=== PATIENT | male | born 1935 | race Caucasian/White ===

== ENCOUNTER → 2016-07-30 | Outpatient (CLI) | payer MEDICARE, OTHER ==
[~2016-07-30] MED LIST: AZOPT 1%; BIMATOPROST 0.03%; BRIM1OPD; CARD2TAB; LESCOL; SIMV40TA2 PO; [UNRECOGNIZED DRUG - OTHER]
--- NOTE | 2016-07-30 11:47 | REP ---
Chest two views HISTORY: Hypertension Comparison: 03/13/2016 The lungs are clear. The heart is normal in size. The pulmonary vasculature is normal in appearance. The bony structure is intact. IMPRESSION: No acute disease. Signed by Franck Armijo MD 07/30/2016 11:39 A
[2016-07-30 11:49] LABS: MEAN CORPUSCULAR HEMOGLOBIN 30.6 pg (27.0-33.0); MEAN CORPUSCULAR HGB CONC 32.7 g/dl (32.0-36.5); MEAN CORPUSCULAR VOLUME 93.7 fl (80.0-96.0); RED CELL DISTRIBUTION WIDTH 13.6 % (11.5-14.5)
[2016-07-30 12:01] LABS: INR 1.1
[2016-07-30 12:16] LABS: ALBUMIN 3.8 GM/DL (3.2-5.2); ALBUMIN/GLOBULIN RATIO 1.09 (1.00-1.93); ALKALINE PHOSPHATASE 70 U/L (45-117); ALT/SGPT 27 U/L (12-78); ANION GAP 8 MEQ/L (8-16); AST/SGOT 26 U/L (15-37); BILIRUBIN,TOTAL 0.7 MG/DL (0.2-1.0); BLOOD UREA NITROGEN 25 MG/DL (7-18); CALCIUM LEVEL 8.7 MG/DL (8.8-10.2); CARBON DIOXIDE LEVEL 28 MEQ/L (21-32); CHLORIDE LEVEL 108 MEQ/L (98-107); CHOLESTEROL LEVEL 155 MG/DL (<200); CREATININE FOR GFR 0.99 MG/DL (0.70-1.30); GLOMERULAR FILTRATION RATE > 60.0 (>35); GLUCOSE, FASTING 97 MG/DL (83-110); POTASSIUM SERUM 4.5 MEQ/L (3.5-5.1); SODIUM LEVEL 144 MEQ/L (136-145); TOTAL PROTEIN 7.3 GM/DL (6.4-8.2); TRIGLYCERIDES LEVEL 95 MG/DL (<150)
--- NOTE | 2016-07-30 12:43 | ECGEPIP ---
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
== END ==
LOC: M LAB 10:55
PROVIDERS: ATTEND Family Medicine
DX: Z01.818 Encounter for other preprocedural examination (principal); I10 Essential (primary) hypertension; N40.0 Benign prostatic hyperplasia without lower urinary tract symptoms; R00.1 Bradycardia, unspecified

== ENCOUNTER → 2016-08-14 | Day surgery (SDC) | payer MEDICARE, OTHER ==
[~2016-08-14] VITALS: Ht 167.6 cm; Wt 68.0 kg
[~2016-08-14] MED LIST changes: +ACETAMINOPHEN 325 MG TAB PO PRN; +ACETYLCHOLINE OPHTH SOLN 1% 2ML As Ordered ONE; +AcetaZOLAMIDE 500 MG ER CAP PO ONE; +BALANCED SALT IRRIGATION SOL 500ML GLASS BOTTLE (FOR OR EYE COMPOUND) IR ONE; +BALANCED SALT IRRIGATION SOLUTION 500ML BAG (FOR OR EYE MACHINE) As Ordered ONE; +CARV12.5 PO; +CEFUROXIME 1MG/0.1ML INTRACAMERAL INJ As Ordered ONE; +CYCLOPENTOLATE 2% OPHTH SOLN OD ONE; +D5W/0.2% SODIUM CHLORIDE 250 ML IV SCH; +HEALON DUET (HEALON 10MG/ML 0.55ML & HEALON ENDOCOAT 30MG/ML 0.85ML) As Ordered ONE; +HEALON DUET (HEALON 10MG/ML 0.55ML & HEALON ENDOCOAT 30MG/ML 0.85ML) XX ONE; +KETOROLAC 0.5% OPHTH SOLN OD ONE; +LIDOCAINE 1% SDV 5 ML VIAL As Ordered ONE; +LIDOCAINE 1% SDV 5 ML VIAL XX ONE; +LIDOCAINE 4% INJ 5 ML AMP OU ONE; +LOSA50TA20 PO; +MIDAZOLAM INJ 2 MG/2 ML VIAL (J2250) As Ordered ONE; +OFLOXACIN 0.3 % (OCUFLOX) OPTH SOL 5ML OD ONE; +PHENYLEPHRINE 2.5% OPHTH SOL 2ML OD ONE; +POVIDONE-IODINE 5% OPHTH PREP SOL 30ML As Ordered ONE; +PROPARACAINE 0.5% OPHTH SOL 15ML OD PRN; +TRIMETHOBENZAMIDE 300 MG CAP PO PRN; +TROPICAMIDE 1% OPHTH SOLN 2 ML OD ONE; +fentaNYL 100 MCG/2 ML INJECTION (J3010) As Ordered ONE
[2016-08-14 12:10] VITALS: BP 178/92
--- NOTE | 2016-08-15 05:11 | RO ---
DATE OF PROCEDURE: 08/14/2016 PREPROCEDURE DIAGNOSIS: Age related nuclear cataract, right eye. POSTPROCEDURE DIAGNOSIS: Age related nuclear cataract, right eye. PROCEDURE: Phacoemulsification and posterior chamber intraocular lens implantation. The lens used was PCB00, 20.0 diopter. SURGEON: Elaine Naranjo MD OIL EXPERT: ANESTHESIA: Topical with sedation. DESCRIPTION OF PROCEDURE: The patient was prepped and draped in the usual fashion. A lid speculum was placed between the lids. The eye was fixated. A stab incision was made to the anterior chamber, and 1% non-preserved lidocaine was instilled. Then, viscoelastic was instilled. The eye was re-fixated. A 2.75 mm sapphire keratome was used to make a clear corneal temporal limbal incision. Capsulorrhexis was begun with a 30-gauge bent needle and then carried out in a circular fashion with capsulorrhexis forceps. The lens was hydrodissected, and then the phacoemulsification unit was used to make a groove in the nucleus in two meridians. The nucleus was then cracked into four quadrants. Each quadrant was removed with the phacoemulsification unit. Any remaining cortex was removed with the irrigation and aspiration (I and A) unit. Capsular bag was refilled with viscoelastic. A posterior chamber intraocular lens was placed in the capsular bag without difficulty. Any remaining viscoelastic was removed with the I and A unit. The wound was hydrated, and Miochol and cefuroxime were instilled into the anterior chamber. The patient tolerated the procedure well and went to the recovery room in stable condition.
== END | disposition home or self-care (01) ==
LOC: M SDC 09:06
PROVIDERS: ATTEND Ophthalmology
DX: H25.11 Age-related nuclear cataract, right eye (principal); I25.2 Old myocardial infarction; Z88.0 Allergy status to penicillin; Z79.899 Other long term (current) drug therapy; I10 Essential (primary) hypertension; E78.5 Hyperlipidemia, unspecified; K44.9 Diaphragmatic hernia without obstruction or gangrene; Z87.891 Personal history of nicotine dependence
CPT/HCPCS: 66984; J2250; J3010; V2632

== ENCOUNTER 2016-08-26 18:31 | Emergency (ER) | payer MEDICARE, OTHER ==
[~2016-08-26] VITALS: Ht 165.1 cm; Wt 72.6 kg
[~2016-08-26 18:31] MED LIST changes: -ACETAMINOPHEN 325 MG TAB PO PRN; -ACETYLCHOLINE OPHTH SOLN 1% 2ML As Ordered ONE; -AcetaZOLAMIDE 500 MG ER CAP PO ONE; -BALANCED SALT IRRIGATION SOL 500ML GLASS BOTTLE (FOR OR EYE COMPOUND) IR ONE; -BALANCED SALT IRRIGATION SOLUTION 500ML BAG (FOR OR EYE MACHINE) As Ordered ONE; -CEFUROXIME 1MG/0.1ML INTRACAMERAL INJ As Ordered ONE; -CYCLOPENTOLATE 2% OPHTH SOLN OD ONE; -D5W/0.2% SODIUM CHLORIDE 250 ML IV SCH; -HEALON DUET (HEALON 10MG/ML 0.55ML & HEALON ENDOCOAT 30MG/ML 0.85ML) As Ordered ONE; -HEALON DUET (HEALON 10MG/ML 0.55ML & HEALON ENDOCOAT 30MG/ML 0.85ML) XX ONE; -KETOROLAC 0.5% OPHTH SOLN OD ONE; -LIDOCAINE 1% SDV 5 ML VIAL As Ordered ONE; -LIDOCAINE 1% SDV 5 ML VIAL XX ONE; -LIDOCAINE 4% INJ 5 ML AMP OU ONE; -MIDAZOLAM INJ 2 MG/2 ML VIAL (J2250) As Ordered ONE; -OFLOXACIN 0.3 % (OCUFLOX) OPTH SOL 5ML OD ONE; -PHENYLEPHRINE 2.5% OPHTH SOL 2ML OD ONE; -POVIDONE-IODINE 5% OPHTH PREP SOL 30ML As Ordered ONE; -PROPARACAINE 0.5% OPHTH SOL 15ML OD PRN; -TRIMETHOBENZAMIDE 300 MG CAP PO PRN; -TROPICAMIDE 1% OPHTH SOLN 2 ML OD ONE; -fentaNYL 100 MCG/2 ML INJECTION (J3010) As Ordered ONE
[2016-08-26] MEDS ORDERED: ketorolac OD (19:14)
[2016-08-26] MEDS ORDERED: LACTULOSE 20 GM/30 ML SYRUP UD PO ONE (19:45)
[2016-08-26] MEDS ORDERED: GLYCERIN ADULT SUPP PR ONE (19:45)
[2016-08-26] MEDS ORDERED: GASTROGRAFIN SOLUTION 30ML (Q9963) As Ordered ONE (20:56)
[2016-08-26 21:10] LABS: BASO % 0.3 % (0.0-1.0); EOS # 0.2 K/mm3 (0.0-0.50); EOS % 1.8 % (0.0-3.0); LARGE UNSTAINED CELL # 0.4 K/mm3 (0.0-0.4); LARGE UNSTAINED CELL % 3.5 % (0.0-4.0); LYMPH # 2.1 K/mm3 (1.5-4.5); LYMPH % 18.3 % (24.0-44.0); MEAN CORPUSCULAR HEMOGLOBIN 30.9 pg (27.0-33.0); MEAN CORPUSCULAR HGB CONC 33.3 g/dl (32.0-36.5); MEAN CORPUSCULAR VOLUME 92.6 fl (80.0-96.0); MONO # 0.7 K/mm3 (0.0-0.8); MONO % 6.1 % (0.0-5.0); NEUTROPHILS # 7.9 K/mm3 (1.8-7.7); PLATELET COUNT, AUTOMATED 148 k/mm3 (150-450); RED CELL DISTRIBUTION WIDTH 13.1 % (11.5-14.5); WHITE BLOOD COUNT 11.2 K/mm3 (4.0-10.0)
[2016-08-26] MEDS ORDERED: GASTROGRAFIN SOLUTION 30ML (Q9963) PO ONE ×2 (21:15→21:45)
[2016-08-26 21:17] LABS: ALBUMIN 2.8 GM/DL (3.2-5.2); ALBUMIN/GLOBULIN RATIO 0.85 (1.00-1.93); BILIRUBIN,DIRECT 0.2 MG/DL (0.0-0.2); BILIRUBIN,TOTAL 0.9 MG/DL (0.2-1.0); CREATININE FOR GFR 1.47 MG/DL (0.70-1.30); GLOMERULAR FILTRATION RATE 49.1 (>35); POTASSIUM SERUM 3.8 MEQ/L (3.5-5.1); TOTAL PROTEIN 6.1 GM/DL (6.4-8.2)
--- NOTE | 2016-08-26 23:20 | REPUSA ---
CT of the abdomen and pelvis without contrast Clinical statement: Pain. Possible obstruction. Technique: Multiple axial CT images were obtained from the base of the lungs to the floor of the pelv is utilizing 5 mm axial slices after administration of oral contrast. Coronal and sagittal reconstruc tions were also obtained. No comparison is available. Findings: Chest: The visualized lung bases are clear. There is a small hiatal hernia. Abdomen: The kidneys are normal in size bilaterally. Parapelvic cysts are seen in the right kidney. T here is moderate left-sided hydronephrosis and hydroureter, caused by a 3 mm stone at the left ureter ovesical junction. The left ureter is ectatic in course. The liver, spleen, pancreas, gallbladder and adrenal glands are unremarkable. The aorta demonstrates normal caliber and contour. There is no abdo terry lymphadenopathy or ascites. Pelvis: The bowel is unremarkable, with no obstructive or inflammatory changes. The urinary bladder i s significantly distended. Dense material is seen in the midportion of the urinary bladder. No bladde r wall thickening is appreciated. There is no pelvic lymphadenopathy or ascites. The other pelvic str uctures appear unremarkable. Bones: There are no suspicious osseous abnormalities seen. Moderately severe multilevel degenerative disc disease is seen throughout the lower thoracic and lumbar spine. Impression: 1. Moderate left-sided hydronephrosis and hydroureter caused by a 3 mm obstructing stone at the left ureterovesical junction. 2. Moderately severe distention the urinary bladder. Dense material in the dependent portion likely r epresents contrast. The urinary bladder distention suggests bladder outlet obstruction. Follow-up is suggested as clinically indicated. 3. Simple right renal parapelvic cysts. 4. Small hiatal hernia. 5. No obstructive or inflammatory bowel changes. 6. Moderate spondylosis of the lumbar and thoracic spine.
[2016-08-26] MEDS ORDERED: NS 500 ML IV ONE (23:45)
[2016-08-27] MEDS ORDERED: CIPR500T89 PO (00:42)
[2016-08-27] MEDS ORDERED: CIPROFLOXACIN 500 MG TAB PO ONE (00:45)
[2016-08-27 00:55] VITALS: BP 123/72
[2016-08-27] MEDS ORDERED: NORCO, ANEXSIA 5/325MG TABLET (HYDROcodone/ACETAMINOPHEN) PO ONE (01:45)
--- NOTE | 2016-08-27 06:33 | REP ---
Abdomen series: Three views presented. History: Pain. Findings: Supine AP view of the chest shows no evidence of infiltrate. Heart is not enlarged. Supine and cross-table lateral views of the abdomen demonstrate gaseous distension of the colon. No small bowel dilation is seen. There is no gas visible in the sigmoid or rectosigmoid or rectum segment of the left colon. Multiple air-fluid levels are seen on the lateral radiograph. No free air is appreciated. There are degenerative changes in the lumbar spine. Impression: Gaseous distension of the proximal colon extending into the mid descending colon level. Left colonic obstruction pattern. No evidence of free air. Consider CT scanning. Signed by Pedro Dumont MD 08/27/2016 10:04 A
--- NOTE | 2016-08-27 13:53 | ED PDOC ---
Provider Note dr oquendo and dr godwin faxed formal report of ct abd/p for fu tiang Maranda Mora MD Aug 27, 2016 13:53
== END 2016-08-27 02:19 | disposition home or self-care (01) ==
LOC: M ED 22:21
DX: R33.9 Retention of urine, unspecified (principal); N13.2 Hydronephrosis with renal and ureteral calculous obstruction; K44.9 Diaphragmatic hernia without obstruction or gangrene; N13.4 Hydroureter; N28.1 Cyst of kidney, acquired; K59.00 Constipation, unspecified; I10 Essential (primary) hypertension; I25.10 Atherosclerotic heart disease of native coronary artery without angina pectoris; E78.5 Hyperlipidemia, unspecified; Z95.5 Presence of coronary angioplasty implant and graft; Z88.0 Allergy status to penicillin; Z79.899 Other long term (current) drug therapy
CPT/HCPCS: 36415; 51703; 74022; 74176; 80048; 80076; 81001; 82150; 83605; 83690; 85025; 87088; 99284; Q9963

== ENCOUNTER → 2016-08-29 | Outpatient (CLI) | payer MEDICARE, OTHER ==
[~2016-08-29] MED LIST changes: +CIPR500T89 PO; +CITR1SOL PO; +COLA100C PO; +DOXA1TAB41 PO; +FLOM5CAP PO; +HYDR-3713 PO; +KETO0.5S15 OD; +MAGNSOL PO; +PERC5TAB6 PO; +PREDOPD OD; +SENN8.6T7 PO; +SIMV20TA2 PO; +TYLE325T5 PO; +ketorolac OD
[2016-08-29 18:24] LABS: CALCIUM LEVEL 8.7 MG/DL (8.8-10.2); CREATININE FOR GFR 1.91 MG/DL (0.70-1.30); GLOMERULAR FILTRATION RATE 36.3 (>35); POTASSIUM SERUM 4.4 MEQ/L (3.5-5.1)
[2016-08-29 18:31] LABS: MEAN CORPUSCULAR HGB CONC 34.4 g/dl (32.0-36.5); MEAN CORPUSCULAR VOLUME 92.8 fl (80.0-96.0); RED CELL DISTRIBUTION WIDTH 13.1 % (11.5-14.5); WHITE BLOOD COUNT 12.3 K/mm3 (4.0-10.0)
== END ==
LOC: M SMT 15:22
PROVIDERS: ATTEND Nurse Practitioner Family
DX: R33.9 Retention of urine, unspecified (principal)
CPT/HCPCS: 36415; 80048; 85027; G0463

== ENCOUNTER 2016-08-30 10:47 | Emergency (ER) | payer MEDICARE, OTHER ==
[~2016-08-30] VITALS: Ht 165.1 cm; Wt 70.3 kg
[~2016-08-30 10:47] MED LIST changes: -CITR1SOL PO; -COLA100C PO; -DOXA1TAB41 PO; -FLOM5CAP PO; -HYDR-3713 PO; -KETO0.5S15 OD; -MAGNSOL PO; -PERC5TAB6 PO; -PREDOPD OD; -SENN8.6T7 PO; -SIMV20TA2 PO; -TYLE325T5 PO
[2016-08-30] MEDS ORDERED: CIPR500T89 PO (11:03)
[2016-08-30] MEDS ORDERED: PREDOPD OD (11:03)
[2016-08-30] MEDS ORDERED: PERCOCET 5MG/325MG TAB PO ONE (11:30)
[2016-08-30 12:00] LABS: BASO % 0.1 % (0.0-1.0); EOS # 0.3 K/mm3 (0.0-0.50); EOS % 2.6 % (0.0-3.0); LARGE UNSTAINED CELL # 0.3 K/mm3 (0.0-0.4); LARGE UNSTAINED CELL % 2.9 % (0.0-4.0); LYMPH # 1.6 K/mm3 (1.5-4.5); LYMPH % 11.9 % (24.0-44.0); MEAN CORPUSCULAR HEMOGLOBIN 31.2 pg (27.0-33.0); MEAN CORPUSCULAR HGB CONC 33.8 g/dl (32.0-36.5); MEAN CORPUSCULAR VOLUME 92.4 fl (80.0-96.0); MONO # 1.1 K/mm3 (0.0-0.8); MONO % 9.6 % (0.0-5.0); NEUTROPHILS % 72.9 % (36.0-66.0); PLATELET COUNT, AUTOMATED 141 k/mm3 (150-450); WHITE BLOOD COUNT 10.9 K/mm3 (4.0-10.0)
[2016-08-30 12:02] LABS: CALCIUM LEVEL 8.1 MG/DL (8.8-10.2); CREATININE FOR GFR 1.75 MG/DL (0.70-1.30); GLOMERULAR FILTRATION RATE 40.1 (>35); POTASSIUM SERUM 4.3 MEQ/L (3.5-5.1)
[2016-08-30 12:29] LABS: MICROSCOPIC INDICATED? MAN YES (NO)
[2016-08-30 12:32] LABS: WBC, URINE 20-30 /hpf (0-3)
[2016-08-30 12:33] LABS: RBC, URINE 15-20 /hpf (0-3); SQUAMOUS EPITHELIAL CELL URINE SMALL AMOUNT /hpf (SMALL AMT)
[2016-08-30 12:34] LABS: BACTERIA, URINE SMALL AMOUNT; HYALINE CAST, URINE NONE SEEN /lpf (0-1); MICROSCOPIC EXAM PERFORMED
--- NOTE | 2016-08-30 12:44 | REP ---
CT ABDOMEN AND PELVIS WITHOUT IV CONTRAST: CT abdomen and pelvis performed without IV contrast with sagittal and coronal reconstruction images. Comparison 08/26/2016 exam. There is again moderate left hydroureteronephrosis caused by a 3 mm calculus at the left ureterovesical junction. This has not significantly changed. There has been placement of a Saleh catheter in the urinary bladder, which is now relatively collapsed. There is no right hydronephrosis with a cyst in the mid right kidney. The visualized lung bases demonstrate scattered fibrotic change. There is a small hiatal hernia. The liver is grossly unremarkable. The spleen demonstrates calcified granulomas. Adrenals and pancreas are grossly unremarkable. There is no abdominal aortic aneurysm. There is no adenopathy. There is no free air or free fluid. There is no bowel wall thickening. Bilateral inguinal hernias are seen right greater than left, containing fat. IMPRESSION: No change in the 3 mm calculus at the left ureterovesical junction causing moderate left hydroureteronephrosis. There has been placement of a Saleh catheter in the urinary bladder, which is now collapsed. No other new finding. Signed by Zach Cole MD 08/30/2016 05:00 P
[2016-08-30] MEDS ORDERED: PERC5TAB6 PO (13:48)
[2016-08-30] MEDS ORDERED: COLA100C PO (13:50)
[2016-08-30 13:52] VITALS: BP 135/76
[2016-08-30] MEDS ORDERED: MAGNESIUM CITRATE 300 ML BTL PO ONE (14:00)
[2016-08-30] MEDS ORDERED: TAMSULOSIN 0.4 MG CAP PO ONE (14:00)
== END 2016-08-30 14:11 | disposition home or self-care (01) ==
LOC: M ED 11:51
DX: N13.0 Hydronephrosis with ureteropelvic junction obstruction (principal); R10.9 Unspecified abdominal pain; K59.00 Constipation, unspecified; Z96.0 Presence of urogenital implants; Z79.899 Other long term (current) drug therapy; Z88.0 Allergy status to penicillin

== ENCOUNTER 2016-09-02 15:04 | Inpatient (IN) | payer MEDICARE, OTHER ==
[~2016-09-02] VITALS: Ht 157.5 cm; Wt 78.8 kg
[2016-09-02] MEDS: CARVedilol 12.5 MG TAB PO SCH ×2 (01:15→21:00)
[~2016-09-02 15:04] MED LIST changes: +COLA100C PO; +PERC5TAB6 PO; +PREDOPD OD
[2016-09-02] MEDS ORDERED: FLOM5CAP PO (15:36)
[2016-09-02] MEDS ORDERED: MAGNSOL PO (15:36)
[2016-09-02] MEDS ORDERED: MORPHINE 2 MG/ML 1ML SYRINGE IV ONE (16:30)
[2016-09-02] MEDS ORDERED: KETOROLAC 30 MG/ML VIAL (J1885) IV ONE (16:30)
[2016-09-02 17:19] LABS: BASO % 0.2 % (0.0-1.0); EOS # 0.1 K/mm3 (0.0-0.50); EOS % 0.7 % (0.0-3.0); LARGE UNSTAINED CELL # 0.4 K/mm3 (0.0-0.4); LARGE UNSTAINED CELL % 3.3 % (0.0-4.0); LYMPH % 7.1 % (24.0-44.0); MEAN CORPUSCULAR HEMOGLOBIN 30.7 pg (27.0-33.0); MEAN CORPUSCULAR HGB CONC 34.1 g/dl (32.0-36.5); MONO % 7.7 % (0.0-5.0); NEUTROPHILS # 10.9 K/mm3 (1.8-7.7); PLATELET COUNT, AUTOMATED 148 k/mm3 (150-450); RED CELL DISTRIBUTION WIDTH 12.8 % (11.5-14.5); WHITE BLOOD COUNT 13.4 K/mm3 (4.0-10.0)
[2016-09-02 17:22] LABS: CALCIUM LEVEL 7.7 MG/DL (8.8-10.2); CREATININE FOR GFR 1.33 MG/DL (0.70-1.30); GLOMERULAR FILTRATION RATE 55.1 (>35); POTASSIUM SERUM 4.1 MEQ/L (3.5-5.1)
--- NOTE | 2016-09-02 18:03 | REP ---
CT study of the abdomen and pelvis without IV or oral contrast: History: Left lateral abdominal pain. Recent left ureteral stone. Comparison study August 30, 2016. CT findings: Digital oven laborer radiograph demonstrates a gas dilated colon extending from cecum to rectum consistent with ileus. Multiple colonic air fluid levels are seen on the prone cross-table lateral oven laborer view. Axial CT images show some small bowel air-fluid levels as well as diffuse colonic distension. No free air is seen. No obstructive lesion is appreciated. There is a small quantity of right pleural fluid. Lung bases are otherwise clear. The liver and spleen are normal in size and homogeneous in texture. There are splenic granulomata seen. A small sliding-type hiatal hernia is seen. No adrenal lesion is observed. The pancreas shows no abnormality. There is moderate left-sided hydronephrosis and hydroureter seen extending to the distal ureter. No pelvic mass or obstructive lesion is seen. No definite stone is observed. There is a Saleh catheter in the urinary bladder. The bladder is empty as a result. The hydronephrosis and hydroureter are unchanged from the August 30, 2016 study. There is a 3 mm calculus in the region of the UPJ on the left, which is presumed to be the of the left ureteral obstructive lesion. This is unchanged from comparison study. No intrarenal calculi are seen. There is a cyst in the upper pole of the right kidney, peripelvic in distribution. There is lipomatous enlargement of the right spermatic cord. Question, fat containing right inguinal hernia. Impression: 1. Moderate left-sided hydronephrosis persists. 3 mm presumed distal ureteral calculus at the UVJ again seen. 2. Marked ileus pattern in the bowel gas with diffuse colonic distension and air-fluid levels, increased from the August 30, 2016 prior study. Signed by Pedro Dumont MD 09/02/2016 07:21 P
[2016-09-02] MEDS ORDERED: HYDR-3713 PO (18:58)
[2016-09-02] MEDS ORDERED: KETO0.5S15 OD (18:58)
[2016-09-02] MEDS ORDERED: CITR1SOL PO (18:58)
[2016-09-02] MEDS ORDERED: DOXA1TAB41 PO (18:58)
[2016-09-02] MEDS ORDERED: SIMV20TA2 PO (18:58)
[2016-09-02] MEDS ORDERED: COLA100C PO (18:58)
[2016-09-02] MEDS ORDERED: ONDANSETRON 4MG/2ML VIAL (J2405) As Ordered ONE (19:09)
[2016-09-02] MEDS ORDERED: PROPOFOL 200 MG/20 ML VIAL As Ordered ONE (19:09)
[2016-09-02] MEDS ORDERED: LIDOCAINE 2% INJ 100 MG/5 ML SDV (FOR ANES.) As Ordered ONE (19:09)
[2016-09-02] MEDS ORDERED: MIDAZOLAM INJ 2 MG/2 ML VIAL (J2250) As Ordered ONE (19:11)
[2016-09-02] MEDS ORDERED: fentaNYL 100 MCG/2 ML INJECTION (J3010) As Ordered ONE (19:12)
[2016-09-02] MEDS ORDERED: CONRAY-60 60% 50ML VIAL (Q9961) As Ordered ONE (19:21)
[2016-09-02] MEDS ORDERED: ceFAZolin 1GM INJ (J0690) As Ordered ONE (19:22)
[2016-09-02] MEDS ORDERED: CIPROFLOXACIN/D5W 400 MG/200 ML BAG (J0744) As Ordered ONE (19:32)
[2016-09-02] MEDS ORDERED: ETOMIDATE INJ 20MG/10ML VIAL As Ordered ONE (19:47)
[2016-09-02] MEDS ORDERED: ePHEDrine INJ 50 MG/ML VIAL As Ordered ONE (20:05)
[2016-09-02] MEDS ORDERED: METHYLENE BLUE 0.5% (5MG/ML) 10 ML AMP (PROVAYBLUE)(Q9968 PER 1MG) As Ordered ONE ×2 (20:12→20:38)
[2016-09-02] MEDS ORDERED: FUROSEMIDE 100 MG/10 ML VIAL (J1940) As Ordered ONE (20:24)
[2016-09-02] MEDS ORDERED: PHENYLephrine HCL 500 MCG/5 ML (100MCG/ML) SYRINGE (J2370) As Ordered ONE ×2 (20:29→20:32)
[2016-09-02] MEDS ORDERED: CIPROFLOXACIN/D5W 400 MG/200 ML BAG (J0744) IV ONE (20:38)
[2016-09-02] MEDS ORDERED: MAGNESIUM CITRATE 300 ML BTL PO PRN (20:45)
[2016-09-02] MEDS ORDERED: NORCO, ANEXSIA 5/325MG TABLET (HYDROcodone/ACETAMINOPHEN) PO PRN (20:45)
[2016-09-02] MEDS ORDERED: METHYLENE BLUE 0.5% (5MG/ML) 10 ML AMP (PROVAYBLUE)(Q9968 PER 1MG) IV ONE (21:05)
[2016-09-02] MEDS ORDERED: FLEET OIL RETENTION ENEMA PR PRN (21:45)
[2016-09-02] MEDS ORDERED: MIRALAX *UNIT DOSE* 17GM PACKET PO PRN (21:45)
[2016-09-02] MEDS ORDERED: ONDANSETRON 4MG/2ML VIAL (J2405) IV PRN ×2 (21:45→22:00)
[2016-09-02] MEDS ORDERED: fentaNYL 100 MCG/2 ML INJECTION (J3010) IV PRN (22:00)
[2016-09-02] MEDS ORDERED: LR 1,000 ML IV SCH (22:00)
[2016-09-02 22:20] VITALS: BP 155/91
[2016-09-02 23:00] VITALS: BP 149/70
[2016-09-03] VITALS (8 sets, daily range): BP systolic 112–163; BP diastolic 62–84
[2016-09-03] MEDS: cefTRIAXone SOD 1 GM in D5W MINI-BAG PLUS 50 ML IV SCH (01:08)
[2016-09-03] MEDS: NS 1,000 ML IV SCH ×2 (01:08→15:36)
[2016-09-03] MEDS: DOCUSATE SODIUM 100 MG CAP PO SCH ×2 (01:10→22:11)
[2016-09-03] MEDS: prednisoLONE ACET 1% OPHTH SUSP 5ML OD SCH ×4 (01:10→22:12)
[2016-09-03] MEDS: KETOROLAC 0.5% OPHTH SOLN OD SCH ×5 (01:10→22:11)
[2016-09-03] MEDS: SIMVASTATIN 20 MG TAB PO SCH ×3 (01:10→22:11)
[2016-09-03] MEDS: TAMSULOSIN 0.4 MG CAP PO SCH ×2 (01:10→22:11)
--- NOTE | 2016-09-03 05:33 | HPE ---
DATE OF ADMISSION: 09/02/2016 PRIMARY CARE PHYSICIAN: Dr. Paulino TOOL AND GAUGE INSPECTOR: Dr. Jackson CHIEF COMPLAINT: Flank pain. HISTORY OF PRESENT ILLNESS: The patient is an 81-year-old man who was examined in the postanesthesia care unit (PACU). He is post anesthesia and fatigued and sleeping. He is arousable but does not wish to answer questions and falls asleep quickly. As such, much of the history is obtained from verbal report from the emergency department (ED) provider, urologist Rosalba Graham, and review of the chart. Patient is an 81-year-old man who for the last week has had abdominal pain and flank pain as well as low back pain. He actually presented to the emergency room on 08/26/2016 and, at that time, was found to have urinary retention. He did have a Saleh catheter inserted. He had, at that time, a 3 mm obstructing stone at the ureterovesical junction as well as moderately severe distension of the urinary bladder. He had a Saleh catheter placed at the time and was actually discharged home. He returned with persistent symptoms of pain and on 08/30/2016 and subsequently had repeat CT scan that once again demonstrated obstructing stone. At that time, a urine culture was completed, which was negative. The urine culture from 08/27/2016 grew Staphylococcus hominis. Patient's renal function actually had worsened between 08/26/2016 and 08/30/2016, going from a creatine of 1.4 to a creatine of 1.7. The patient was discharged once again on 08/30/2016. He returned today with persistent symptoms and episode of nausea and vomiting. The patient reportedly over the last 2 weeks has had difficulties with bowel movement and, since being here on 08/30/2016, he has not had a bowel movement since then. He has been on [place]. The patient was seen and evaluated in the emergency room by urology and was taken to the operating room (OR) for cystoscopy and ureteral stent placement. The patient was examined in the recovery room and appears to be doing well. PAST MEDICAL HISTORY: 1. Hypertension. 2. Dyslipidemia. 3. Coronary artery disease. 4. BPH. 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 He is a former smoker. He does not consume any alcohol. SURGICAL HISTORY: He had cataract extraction at the end of July. Status post transurethral resection of prostate (TURP), left shoulder surgery, and hernia repair. ALLERGIES: To PENICILLIN, reportedly anaphylaxis. FAMILY HISTORY: Noncontributory. REVIEW OF SYSTEMS: Negative other than history of present illness (HPI). PHYSICAL EXAM: Temperature 99.7, pulse 68, respiratory rate 20, blood pressure 132/68, oxygen saturation 96% on room air. GENERAL: He is a frail elderly man, laying flat, sleeping peacefully. He does not appear to be in any distress. HEENT: Pupils equally round, reactive to light. He has very dry mucous membranes. He is not cooperative with exam and as such, it is somewhat limited. CARDIOVASCULAR EXAM: S1, S2, regular. RESPIRATORY EXAM: Is clear anteriorly. ABDOMINAL EXAM: Distended. Bowel sounds are diminished. He does not recoil with palpation. He has a Saleh catheter in place draining hematuria. EXTREMITIES: No clubbing, cyanosis, or edema. LABORATORY STUDIES: WBC 13.4, up from 10.9 on 08/30/2016. Hemoglobin 14, hematocrit 41, platelet count is 148. Chemistry panel: Sodium 137, potassium 4.1, chloride 103, bicarbonate 26, BUN 23. Creatine 1.3, down from 1.7 on his last visit on 08/30/2016. Urinalysis (UA)/urine culture have not been completed. IMAGING: CT of the abdomen and pelvis today once again demonstrates, for the third time, moderate left-sided hydronephrosis and a 3 mm presumed distal ureteral calculus. This time, there was also noted to be a marked ileus pattern in the bowel gas with diffuse colonic extension. ASSESSMENT AND PLAN: This is an 81-year-old man with obstructing left ureteral stone. PROBLEMS: 1. Left obstructing stone. Dr. Graham's (of urology) help is greatly appreciated. The patient has been taken the OR already and had stent placement. He received cephalosporin and fluoroquinolone in the emergency room empirically. We will continue these. We will also check a UA/urine culture with a low threshold to discontinue antibiotics, as his cultures have previously been negative and he does not appear to be febrile and his leukocytosis is actually improving and he has been on ciprofloxacin outpatient. We will continue with [place] for pain medication. 2. Ileus. This has developed in the last 2 days, likely related to either the stone versus opiate pain medication. We will provide him with an aggressive bowel regimen. His stone has been addressed. He will need to followup with outpatient urology. If he should fail to improve or have worsening vomiting, could consider general surgery consultation, nasogastric (NG) tube placement. However, for now, we will keep him nothing by mouth and try these measures. 3. BPH. Continue with doxazosin and Flomax. 4. Hypertension. We will hold his losartan. Continue with his Coreg with holding parameters. 5. Recent cataract surgery. Continue with ketorolac and prednisone drops. 6. Dyslipidemia. Continue with simvastatin. 7. Documented history of coronary artery disease. He is on a statin and a beta-shaila. Curiously, he is not on aspirin. We will defer to his outpatient provider. DISPOSITION: The patient will be admitted to Dr. García's service, who will continue following the patient at 7 a.m.
[2016-09-03 07:26] LABS: MEAN CORPUSCULAR HEMOGLOBIN 30.3 pg (27.0-33.0); MEAN CORPUSCULAR VOLUME 91.9 fl (80.0-96.0); RED CELL DISTRIBUTION WIDTH 12.8 % (11.5-14.5); WHITE BLOOD COUNT 10.9 K/mm3 (4.0-10.0)
[2016-09-03 07:27] LABS: ANION GAP 8 MEQ/L (8-16); BLOOD UREA NITROGEN 22 MG/DL (7-18); CALCIUM LEVEL 7.6 MG/DL (8.8-10.2); CARBON DIOXIDE LEVEL 28 MEQ/L (21-32); CHLORIDE LEVEL 103 MEQ/L (98-107); CREATININE FOR GFR 1.13 MG/DL (0.70-1.30); GLOMERULAR FILTRATION RATE > 60.0 (>35); GLUCOSE, FASTING 98 MG/DL (83-110); POTASSIUM SERUM 3.6 MEQ/L (3.5-5.1); SODIUM LEVEL 139 MEQ/L (136-145)
[2016-09-03] MEDS: HEPARIN SOD (PORCINE) 5000 UNITS/ML VIAL SC SCH ×2 (08:16→22:10)
[2016-09-03] MEDS: CIPROFLOXACIN 400 MG in APPROPRIATE DILUENT 1 EA IV SCH ×2 (08:16→22:10)
[2016-09-03] MEDS: DOXAZOSIN MESYLATE 1 MG TAB PO SCH (08:16)
[2016-09-03] MEDS: CARVedilol 12.5 MG TAB PO SCH ×2 (08:17→22:13)
--- NOTE | 2016-09-03 08:34 | REP ---
Retrograde pyelogram: Two views. History: Left ureteral stone. 18 seconds of fluoroscopy time is reported. Findings: A sequence of two fluoroscopically obtained last image hold spot radiographs of the left abdomen document cystoscopic placement of double pigtail ureteral stent. Ileus pattern in the bowel gas is again seen. Signed by Pedro Dumont MD 09/03/2016 01:07 P
--- NOTE | 2016-09-03 11:15 | CR ---
DATE OF CONSULTATION: 09/02/2016 REASON FOR CONSULTATION: Distal left ureteral calculus. HISTORY OF PRESENT ILLNESS: The patient is an 81-year-old gentleman with his third emergency room visit for left lower quadrant and abdominal pain. Originally he was evaluated on 08/26/[address] scan showed moderate left hydroureteronephrosis with a 3 mm stone at the left ureterovesical junction, constipation, and bladder distension with 999 mL. A Saleh catheter was placed and he was sent to our office where he saw our nurse practitioner on 08/29/2016. They were going to continue with watchful waiting but the patient went back to the hospital on 08/30/[address] Morgan was called. The patient was discharged home with pain management and Flomax. He comes back in today with very severe left lower quadrant pain and still with constipation and bowel distension. He denies any significant fever or chills. He has had nausea but no vomiting. He denies any gross hematuria and a Saleh catheter bag is draining well. PAST MEDICAL HISTORY: History of myocardial infarction ([place]). Hypercholesterolemia. High blood pressure. PAST SURGICAL HISTORY: TURP in 2007. Shoulder surgery. Angiogram with cardiac catheterization and stent. Cataract. Hernia repair. MEDICATIONS: - simvastatin - carvedilol - losartan He was on ciprofloxacin at home and prednisone ophthalmic drops. ALLERGIES: PENICILLIN. FAMILY HISTORY: Noncontributory. There is no family history of kidney stones. SOCIAL HISTORY: He is a former smoker and does not drink alcohol now. PHYSICAL EXAMINATION: He is afebrile. His blood pressure is 132/68. His pulse is 68. Respiratory rate is 20. His head is normocephalic, atraumatic. His eyes are pupils equal, round, reactive to light and accommodation and extraocular muscles intact. His neck is supple and he has no significant supraclavicular or cervical adenopathy. He is breathing without the use of accessory muscles and his lungs are clear. His heart has a regular rate and rhythm now. He has no true CVA tenderness but he does have abdominal distension and left lower quadrant tenderness. There is no rebound or guarding. There is a Saleh catheter in place draining clear yellow urine. His extremities show no cyanosis, clubbing or edema. LABORATORY DATA: His white blood count is slightly elevated at 13.4 with his hemoglobin and hematocrit 14/40. His BUN and creatinine are actually down from 08/29 were his creatinine was 1.91. Today it is 1.33. His BUN is 23. A urine culture did grow out staph hominis commonness on 08/27/2016. CT scan of the abdomen and pelvis dated 09/02/2016: There is still moderate left sided hydroureteronephrosis to the distal ureter and this is unchanged from the previous study. There is no intrarenal calculi seen. There is a cyst in the upper pole of the right kidney. There can be of fat containing right inguinal hernia. There is also marked ileus pattern with diffuse colonic distension and air fluid levels increased from the prior study of 08/30. DISCUSSION: I have discussed these findings at length with the patient and his daughter in the emergency room today. At this point, he would like to go ahead with surgical management of the stones since he is still so uncomfortable. We discussed though that he still has the severe ileus and constipation but that hopefully this will get better once the stone is removed. We discussed exactly how the procedure is done and what to expect both pre- and post procedurally. We discussed the major risks which included but were not limited to the risks of general anesthesia, reactions to medication, bleeding, infection, inability to get the stone and continued pain from his other abdominal issues and also his urinary obstruction. IMPRESSION: 1. Distal 3 mm ureterovesical junction stone on the left which has not moved since 08/26/2016 still in a patient with his third ER visit and severe pain. 2. Severe ileus and constipation for the last 2 weeks. 3. Urinary retention also since 08/26/2016 now with Saleh catheter draining. PLAN: 1. Bring the patient emergently to the operating room for left ureteroscopy, stone manipulation, and stent placement. 2 Admit the patient overnight to the hospitalist service to deal with his ileus and constipation issues. 3. The patient will still need to follow up in the future for his urinary retention and a voiding trial.
--- NOTE | 2016-09-03 11:49 | RO ---
DATE OF PROCEDURE: 09/02/2016 PREOPERATIVE DIAGNOSIS: Distal left ureteral calculus. POSTOPERATIVE DIAGNOSIS: Distal left ureteral calculus with a very abnormal trigone and regrowth of his prostate, prostatic urethra on the left hand side. PROCEDURE: Cystoscopy, left ureteroscopy, left laser lithotripsy and stone basketing, and left ureteral stent placement. SURGEON: Dr. Rosalba Graham FELT CUTTING MACHINE OPERATOR: ANESTHESIA: General. MEDICATIONS: Cipro 400 mg IV preoperatively. DRAINS: 22-Chilean Saleh catheter, 6-Chilean double-J ureteral [place] stent and an 18-Chilean Saleh catheter. FINDINGS: Extremely abnormal trigone with significant postoperative scarring from a TURP multiple years ago and now with regrowth of the prostatic urethra on the right hand side. INDICATIONS FOR PROCEDURE: The patient is an 81-year-old gentleman with severe left lower quadrant pain and this is his third emergency room (ER) visit. Originally, he presented on 08/23/2016 to the emergency room with left lower quadrant pain, constipation and was found to be in urinary retention with 999 mL from his bladder. Saleh catheter was placed. A CT scan also showed a 3 mm distal left ureteral calculus and hydroureter nephrosis. He also had constipation and has continued to have constipation and abdominal pain with distension since that time. The patient came back to the emergency room and this is his third occasion and it was decided to bring him to the operating room urgently for pain management. All different options, alternatives, risks and benefits were discussed and informed consent was obtained. DESCRIPTION OF PROCEDURE: The patient was brought into the operating room. Sequential compression devices were in place and preoperative antibiotics had been given. Next, he was prepped and draped in the usual fashion. A 21-Chilean rigid ureterocystoscope was inserted. The urethra was noted to be open without any evidence of lesions or strictures. Upon entering the prostatic urethra, there was significant regrowth of tissue on the left hand side. There was a slightly high bladder neck and then, when I entered the bladder, there was multiple abnormalities with a completely abnormal trigone and significant difficulty seeing the ureteral orifices. There was also very deep trabeculation and/or previous false passage now with scar tissue with several long bands throughout the bladder, one in the midline. I gave methylene blue and Lasix to try to find the ureteral orifice and finally was able to see the left ureteral orifice very lateral on the bladder wall and underneath one of these abnormal bridges of tissue. It looks as though his whole trigone had been undermined at some point. At this point, I was able to place a 0.035 guidewire under fluoroscopy and this was left as a safety wire. We then placed a second wire and when in with a ureteroscope. The stone was seen in the distal ureter and because of the shape, I decided to place a laser in and I broke the stone into two pieces. I then went back with a stone basket and was able to remove the stone fragments. At this point, a [place] 6-Chilean double-J ureteral stent was placed and fluoroscopy showed excellent placement at the left renal pelvis and down in the bladder. The patient's bladder was emptied. An 18-Chilean Saleh catheter was replaced and left to gravity drainage. The patient was returned to the recovery room in stable condition. The patient will be admitted to the hospitalist service overnight because of his ileus and severe constipation problems and abdominal pain. He will need to followup in the office in approximately 1 week for cystoscopy and stent removal, and then further discussion for possible voiding trial once he starts moving his bowels normally. LISA
--- NOTE | 2016-09-03 12:39 | IPN ---
DATE: 09/03/2016 The patient feels much more comfortable after his stone has been removed and it seems as though he had a bowel movement this morning and his abdominal distension is improving. He is afebrile. His blood pressure is 129/77 and his pulse is 60. He has no CVA tenderness. His abdomen is still slightly distended but soft and nontender. There is no significant rebound or guarding. He does have a Saleh catheter in place and it is draining light pink urine to almost clear. His extremities show no significant clubbing, cyanosis or edema. LABORATORY DATA: His white blood count is down to 10.9 from 30.4 yesterday. His hemoglobin and hematocrit is 12/26.3. His BUN is 22 and his creatinine is now down to 1.13 from 1.33 yesterday. IMPRESSION: 1. Postoperative #1 status post left ureteroscopy and distal stone removal with placement of a double-J ureteral stent now doing better. 2. History of an ileus with constipation recently, most likely secondary to pain medication and pain from the stone, but it does sound like he has had chronic constipation so medicine is following him, which is greatly appreciated. 3. Renal insufficiency now with his creatinine down to 1.13. 4. Urinary retention with a history of a TURP many years ago with abnormalities seen on cystoscopy of the trigone of the bladder from previous procedure. PLAN: 1. Patient will come to the outpatient urology clinic for a voiding trial once he is moving his bowels well and is ambulating. 2. Patient also to have a cystoscopy and stent removal in the outpatient urology clinic in approximately 1 week and continuation of care for the urinary retention. LISA
--- NOTE | 2016-09-03 12:51 | IPN ---
DATE: 09/03/2016 SUBJECTIVE: Patient is seen and examined in the room with his daughter. The patient finally started having bowel movements. However, the patient has been nothing by mouth in preparation for the procedures. The patient has been maintained on IV fluids. Still has some abdominal discomfort. The patient tolerated the ureteral stent placement well. No complications noted. VITAL SIGNS: Temperature is 98.2, pulse is 60, respirations 16, blood pressure is 129/77, pulse oximetry is 98% with 2 liters nasal cannula. GENERAL: Fatigued. No signs of acute distress. Alert and oriented times three. HEENT: Problem with hearing. Extremely dry oral mucosa. Normocephalic. CARDIOVASCULAR: Positive S1 and S2. Regular rate. LUNGS: Clear to auscultation bilaterally. ABDOMEN: Distended. Bowel sounds present. No rebound. No guarding. EXTREMITIES: No edema. No cyanosis. LABORATORY DATA: WBC 10.9, hemoglobin 12, hematocrit 36.3, platelet count is 155. Sodium is 139, potassium 3.6, chloride is 103, carbon dioxide 28, BUN 22, creatinine is 1.13, GFR is greater than 60, fasting glucose 98, calcium is 7.9. ASSESSMENT/PLAN: 1. Distal obstructing left ureteral calculus. Patient was brought to the OR by urologist Dr. Graham yesterday. A stent was placed and stone was removed. The patient tolerated it well. Patient is cleared by the urologist. 2. Ileus. Possibly due to stone and also chronic opiate use. The patient had a bowel movement after the procedure yesterday. NG tube was removed. The patient's diet order will change from nothing by mouth to 2 gram sodium diet. Currently the patient is extremely dry and we are not sure the patient can tolerate significant oral intake. I will continue the patient on the IV fluids. 3. Benign prostatic hypertrophy (BPH). Continue Zosyn and Flomax. The patient has a Saleh catheter. 4. Urinary tract infection. The patient is on Rocephin and ciprofloxacin. We will wait for the urine cultures. 5. Hypertension. The patient is on Coreg with holding parameters. Losartan is on hold. 6. Dyslipidemia. Continue simvastatin. 7. Recent cataract surgery on ketorolac and prednisone drops. 8. History of coronary artery disease on statin and beta-shaila. The patient is not on aspirin, referred that to the patient's outpatient provider. 9. Deep vein thrombosis (DVT) prophylaxis, on heparin.
[2016-09-04] MEDS: NS 1,000 ML IV SCH (01:52)
[2016-09-04] MEDS: cefTRIAXone SOD 1 GM in D5W MINI-BAG PLUS 50 ML IV SCH (01:52)
[2016-09-04 06:00] VITALS: BP 121/72
[2016-09-04 08:27] LABS: MEAN CORPUSCULAR HEMOGLOBIN 30.7 pg (27.0-33.0); MEAN CORPUSCULAR HGB CONC 33.7 g/dl (32.0-36.5); MEAN CORPUSCULAR VOLUME 91.2 fl (80.0-96.0); RED CELL DISTRIBUTION WIDTH 12.8 % (11.5-14.5)
[2016-09-04 08:29] LABS: ANION GAP 6 MEQ/L (8-16); BLOOD UREA NITROGEN 15 MG/DL (7-18); CALCIUM LEVEL 7.3 MG/DL (8.8-10.2); CARBON DIOXIDE LEVEL 28 MEQ/L (21-32); CHLORIDE LEVEL 106 MEQ/L (98-107); CREATININE FOR GFR 0.87 MG/DL (0.70-1.30); GLOMERULAR FILTRATION RATE > 60.0 (>35); GLUCOSE, FASTING 92 MG/DL (83-110); POTASSIUM SERUM 3.9 MEQ/L (3.5-5.1); SODIUM LEVEL 140 MEQ/L (136-145)
[2016-09-04] MEDS: CIPROFLOXACIN 400 MG in APPROPRIATE DILUENT 1 EA IV SCH (08:37)
[2016-09-04] MEDS: DOXAZOSIN MESYLATE 1 MG TAB PO SCH (08:42)
[2016-09-04 08:43] VITALS: BP 112/60
[2016-09-04] MEDS: CARVedilol 12.5 MG TAB PO SCH (08:43)
[2016-09-04] MEDS: SIMVASTATIN 20 MG TAB PO SCH (08:44)
[2016-09-04] MEDS: HEPARIN SOD (PORCINE) 5000 UNITS/ML VIAL SC SCH (08:48)
[2016-09-04] MEDS: prednisoLONE ACET 1% OPHTH SUSP 5ML OD SCH (08:49)
[2016-09-04] MEDS: KETOROLAC 0.5% OPHTH SOLN OD SCH ×2 (08:49→12:30)
[2016-09-04] MEDS ORDERED: TYLE325T5 PO (10:10)
[2016-09-04] MEDS ORDERED: SENN8.6T7 PO (10:10)
[2016-09-04] MEDS ORDERED: CIPR500T89 PO (10:10)
[2016-09-04 12:30] VITALS: BP 120/70
--- NOTE | 2016-09-04 16:30 | DSES ---
DATE OF ADMISSION: 09/02/2016 DATE OF DISCHARGE: 09/04/2016 PRIMARY CARE PROVIDER: Dr. Paulino CONSULTANTS: Urologist, Dr. Rosalba Graham PROCEDURES: 1. Cystoscopy and left uretal scope and left laser lithotripsy and stone basketing. 2. Left ureteral stent placement. ADMISSION/DISCHARGE DIAGNOSES: 1. Distal obstructing left ureteral calculus status post lithotripsy and stent placement. 2. Ileus. 3. Benign prostatic hypertrophy. 4. Urinary tract infection. 5. Hypertension. 6. Dyslipidemia. 7. History of coronary artery disease. HOSPITALIZATION COURSE: Patient is an 81-year-old male who presented to [facility] on 09/02/2016 with flank pain. Patient was found to have obstructing calculus at the left urethra. Patient also noted to have marked ileus. The urologist Dr. Graham consulted immediately and patient was taken to the OR. Lithotripsy was performed and the stone was removed, and also ureteral stent placed. Patient started on some bowel movement medication. Shortly after the medication, patient had good stool production. Patient's diet had been advanced as tolerated. On 09/04/2016 patient determined medically stable for discharge with recommendation to follow with urology in one week. OBJECTIVE: VITAL SIGNS: Temperature 100.2, pulse 80, respirations 18, blood pressure 112/60, pulse ox 95% on room air. LABORATORY DATA: WBC 9, hemoglobin 11.2, hematocrit 33.2, platelet count 171. Sodium 140, potassium 3.9, chloride 106, carbon dioxide 28, BUN 15, creatinine 0.87. Glomerular filtration rate (GFR) greater than 60. Fasting glucose 92, calcium 7.3. DISCHARGE MEDICATIONS: - Tylenol 650 mg by mouth every 8 hours as needed for mild pain or fever - ciprofloxacin 500 mg by mouth twice a day for 10 pills - Senna S one tablet by mouth every day for constipation - Percocet 0.5 tablet by mouth every 6 hours as needed - Carvedilol 12.5 mg by mouth twice a day - Colace 100 mg by mouth at bedtime - Doxazosin 2 mg by mouth every day - Ketorolac 1 drop right eye four times a day - magnesium citrate 300 mg by mouth as needed constipation - simvastatin 20 mg twice a day - Flomax one tablet by mouth at bedtime DISCHARGE INSTRUCTIONS: 1. Discontinue IV line. 2. Discharge patient home. 3. Diet as tolerated. 4. Activity as tolerated. 5. Patient should follow with urology in one week. 6. Patient should follow with primary care provider in one week. 7. Patient should discuss the urinary retention with urology. Currently patient has chronic Saleh. 8. Patient should finish the course of ciprofloxacin. DISCHARGE CONDITION: Stable. DISCHARGE PLANNIN minutes.
== END 2016-09-04 12:50 | disposition home or self-care (01) | DRG 669 ==
LOC: M ED 17:11 → M SDC 18:40 → M ED INP 21:39 → M MS5PR 22:00
PROVIDERS: ADMIT Internal Medicine; ATTEND Internal Medicine
PROC: 0TC78ZZ Extirpation of Matter from Left Ureter, Via Natural or Artificial Opening Endoscopic (ICD-10-PCS; principal; 2016-09-02 19:43)
DX: N20.1 Calculus of ureter (principal); N39.0 Urinary tract infection, site not specified; K56.7 Ileus, unspecified; N40.0 Benign prostatic hyperplasia without lower urinary tract symptoms; I25.10 Atherosclerotic heart disease of native coronary artery without angina pectoris; E78.5 Hyperlipidemia, unspecified; I10 Essential (primary) hypertension; Z79.899 Other long term (current) drug therapy; Z79.52 Long term (current) use of systemic steroids; Z87.891 Personal history of nicotine dependence; Z88.0 Allergy status to penicillin

== ENCOUNTER 2016-11-16 13:37 | Inpatient (IN) | payer MEDICARE, OTHER ==
[~2016-11-16] VITALS: Ht 157.5 cm; Wt 66.0 kg
[~2016-11-16 13:37] MED LIST changes: +CITR1SOL PO; -COLA100C PO; +COLA100C3 PO; +DOXA1TAB41 PO; +FLOM5CAP PO; +HYDR-3713 PO; +KETO0.5S15 OD; +MAGNSOL PO; +SENN8.6T7 PO; +SIMV20TA2 PO; +TYLE325T5 PO
[2016-11-16] MEDS ORDERED: FLUO20CA8 PO (14:01)
[2016-11-16] MEDS ORDERED: DONETAB5 PO (14:01)
[2016-11-16] MEDS ORDERED: LOSA50TA20 PO (14:01)
[2016-11-16] MEDS ORDERED: CARV6.25 PO (14:01)
[2016-11-16] MEDS ORDERED: DOXA1TAB71 PO (14:01)
[2016-11-16] MEDS ORDERED: SIMV40TA2 PO (14:01)
--- NOTE | 2016-11-16 14:21 | REP ---
Clinical: Altered mental status. Comparison: 01/22/2009 . Findings: Age-related atrophy and microvascular ischemic changes are appreciated. The ventricles and sulci are symmetric. Cole-white differentiation is maintained. There is no evidence for acute intracranial hemorrhage, mass/mass effect, pathology or infarction. No extra-axial fluid collection. Calvarium is intact. Paranasal sinuses and mastoid air cells are clear. Impression: Age related atrophy and microvascular ischemic changes. No acute intracranial hemorrhage, infarction, or mass/mass effect. Signed by Blake Deshpande MD 11/16/2016 02:13 P
--- NOTE | 2016-11-16 14:38 | REP ---
Clinical: Altered mental status . Comparison: 08/26/2016 . Findings: The mediastinum and cardiac silhouette are stable and within normal limits for portable technique. The lung drake are clear without acute consolidation, effusion, or pneumothorax. Skeletal structures are intact. Impression: Normal portable chest x-ray Signed by Blake Deshpande MD 11/16/2016 02:29 P
[2016-11-16] MEDS: NS 1,000 ML IV SCH ×2 (14:40→22:51)
[2016-11-16 14:45] LABS: BASO % 0.4 % (0.0-1.0); EOS # 0.1 K/mm3 (0.0-0.50); EOS % 1.5 % (0.0-3.0); LARGE UNSTAINED CELL # 0.2 K/mm3 (0.0-0.4); LARGE UNSTAINED CELL % 2.2 % (0.0-4.0); LYMPH # 1.7 K/mm3 (1.5-4.5); LYMPH % 15.4 % (24.0-44.0); MEAN CORPUSCULAR HEMOGLOBIN 29.9 pg (27.0-33.0); MEAN CORPUSCULAR HGB CONC 33.1 g/dl (32.0-36.5); MEAN CORPUSCULAR VOLUME 90.1 fl (80.0-96.0); MONO # 0.6 K/mm3 (0.0-0.8); MONO % 5.7 % (0.0-5.0); NEUTROPHILS # 7.2 K/mm3 (1.8-7.7); NEUTROPHILS % 74.9 % (36.0-66.0); PLATELET COUNT, AUTOMATED 246 k/mm3 (150-450); RED CELL DISTRIBUTION WIDTH 14.2 % (11.5-14.5); WHITE BLOOD COUNT 9.6 K/mm3 (4.0-10.0)
[2016-11-16 14:46] LABS: ABG BASE EXCESS 0.8 (-2.0-2.0); ABG HCO3 24.7 MEQ/L (22.0-26.0); ABG PARTIAL PRESSURE O2 72.2 mmHg (75.0-100.0); ABG STANDARD HCO3 25.1 MEQ/L (22.0-26.0); ABG TOTAL CO2 25.9 MEQ/L (23.0-31.0); ABG pH (ARTERIAL) 7.443 UNITS (7.350-7.450)
[2016-11-16 15:06] LABS: OSMOLALITY SERUM 288 MOSM/KG (280-301)
[2016-11-16 15:10] LABS: ALBUMIN 2.2 GM/DL (3.2-5.2); ALBUMIN/GLOBULIN RATIO 0.51 (1.00-1.93); ALKALINE PHOSPHATASE 78 U/L (45-117); ALT/SGPT 23 U/L (12-78); ANION GAP 6 MEQ/L (8-16); AST/SGOT 21 U/L (15-37); BILIRUBIN,DIRECT 0.2 MG/DL (0.0-0.2); BILIRUBIN,TOTAL 0.4 MG/DL (0.2-1.0); BLOOD UREA NITROGEN 18 MG/DL (7-18); CALCIUM LEVEL 8.2 MG/DL (8.8-10.2); CARBON DIOXIDE LEVEL 29 MEQ/L (21-32); CHLORIDE LEVEL 103 MEQ/L (98-107); CREATININE FOR GFR 0.76 MG/DL (0.70-1.30); GLOMERULAR FILTRATION RATE > 60.0 (>35); GLUCOSE, FASTING 111 MG/DL (83-110); SODIUM LEVEL 138 MEQ/L (136-145); TOTAL PROTEIN 6.5 GM/DL (6.4-8.2)
[2016-11-16] MEDS ORDERED: SIMV20TA2 PO (15:20)
[2016-11-16] MEDS ORDERED: GERITAB9 PO (15:20)
[2016-11-16] MEDS ORDERED: CIPROFLOXACIN 400 MG in APPROPRIATE DILUENT 1 EA IV ONE (16:15)
[2016-11-16] MEDS ORDERED: BISACODYL 5 MG TAB PO PRN (17:45)
[2016-11-16 20:05] VITALS: BP 129/68
--- NOTE | 2016-11-16 20:39 | HPE ---
DATE OF ADMISSION: 11/16/2016 ATTENDING PHYSICIAN: Dr. Sherie Morton PRIMARY CARE PROVIDER: Dr. Paulino UROLOGIST: Dr. Morgan CHIEF COMPLAINT: Seizure-like activity. HISTORY OF PRESENT ILLNESS: Mr. Peña is an 81-year-old male with past medical history significant for hypertension, hyperlipidemia, coronary artery disease, benign prostatic hypertrophy (BPH) and history of transient ischemic attack (TIA), who presents to the emergency department after having a witnessed seizure-like activity. The daughter is present at bedside and was a witness to this episode. She reports that prior to this episode, he did complain of some dizziness and nausea. Thereafter, while sitting in a chair, he began to shake and slid onto the floor. No bowel or bladder incontinence. No biting of the tongue. Episode lasted about a minute. During this episode he was clammy and sweating. They report that patient has been extremely depressed since his in 06/2016. Over the last week, he has progressively been getting more depressed. He is weaker and has extremely poor oral intake. He is refusing to eat much and does not feel like getting out of bed and getting dressed. When emergency medical services (EMS) arrived, he was lethargic. Blood pressure was 90 over palp. He was given a 250 mL IV bolus. When patient was evaluated in the emergency department, daughter states that he is back to baseline mentation. This lethargic, possibly postictal period lasted about 30 minutes. He did not have any complaints of fevers, chills, vomiting, diarrhea, shortness of breath, headache, lightheadedness or dizziness. He does report some epigastric pain. Patient has a chronic Saleh catheter in place due to enlarged prostate. They do not report any increase cloudiness or hematuria. No decrease in urinary output. Saleh was last changed on 10/31/2016. In the emergency department, patient was found to be bradycardic with pulses ranging between 53 and 57. Other vitals were stable. Patient is afebrile. Head CT was within normal. Chest x-ray normal. When patient was evaluated, he was alert and oriented, following commands. Back to baseline mentation. LABORATORY DATA: Reveals a mildly decreased hemoglobin of 10, hematocrit 30.1. Arterial blood gas (ABG) showed pH of 7.44, pCO2 37, pO2 72, oxygen saturation 94. Urinalysis reveals cloudy urine, 3+ leukocyte esterase, too numerous to count WBC, RBC 71, bacteria 1+. PAST MEDICAL HISTORY: 1. Hypertension. 2. Hyperlipidemia. 3. Coronary artery disease. 4. Benign prostatic hypertrophy. 5. History of transient ischemic attack (TIA). PAST SURGICAL HISTORY: 1. Bilateral cataract surgery. 2. Cystoscopy with left ureteral stent. 3. Shunt in bilateral eyes for glaucoma. 4. Transurethral resection of prostate. 5. Left shoulder surgery. 6. Hernia repair. HOME MEDICATIONS: - carvedilol 6.25 mg by mouth twice a day - losartan 50 mg by mouth at night - fluoxetine 20 mg at night - simvastatin 20 mg at night - Flomax 0.4 mg by mouth at night - doxazosin 2 mg by mouth daily - donepezil 5 mg by mouth daily - Geritol one tablet by mouth daily ALLERGIES: PENICILLIN (anaphylaxis). SOCIAL HISTORY: The patient is a former smoker, quit about 20 years ago. He used to smoke pipes and chew tobacco for 20-30 years, occasional cigarette smoking. No alcohol or illicit drug use. Lives with his daughter. 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 Three dogs and one cat in the home. No recent travel. No sick contacts. FAMILY HISTORY: Mother had history of diabetes. REVIEW OF SYSTEMS: As per history of present illness (HPI). All other 12-point review of systems were negative. PHYSICAL EXAMINATION VITAL SIGNS: Temperature 96.3, pulse 57, respiratory rate 19, blood pressure 117/74, pulse oximetry 97%. GENERAL: Patient is awake and alert, in no acute distress. He is oriented times three. HEENT: Normocephalic, atraumatic. Extraocular muscles are intact. Pupils are equally round and reactive to light. No scleral icterus. Moist mucosa. NECK: Supple. No cervical lymphadenopathy. No thyromegaly. No jugular venous distension appreciated. HEART: Normal S1, S2. Bradycardic. Regular rhythm. No murmur appreciated. LUNGS: Clear to auscultation bilaterally. No rales, rhonchi or wheezing. ABDOMEN: Soft. Mild tenderness in epigastric region. Bowel sounds are present. No rebound, guarding or rigidity. EXTREMITIES: No cyanosis or edema. Positive pedal pulses bilaterally. SKIN: Warm and dry. No rashes noted. NEUROLOGIC: No focal deficits. Cranial nerves II through XII are grossly intact. Motor and sensation intact. LABORATORY DATA: WBC 9.6, hemoglobin 10.0, hematocrit 30.1, platelet count 246. Sodium 138, potassium 4.0, chloride 103, carbon dioxide 29, anion gap 6, BUN 18, creatinine 0.76, GFR greater than 60, fasting glucose 111, lactic acid 1.6, calcium 8.2. Total bilirubin 0.4, direct bilirubin 0.2, AST 21, ALT 23, alkaline phosphatase 78, ammonia 22, total creatinine kinase 40. CK-MB 1.1. Troponin 0.02. Total protein 6.5. Albumin 2.2. TSH 1.79. Urinalysis revealed cloudy appearance of the urine, 2+ protein. 2 urobilinogen, 3+ leukocyte esterase, too numerous to count WBC, 71 RBC, 1+ bacteria. MICROBIOLOGY: Blood culture, urine culture pending. IMAGING STUDIES: Patient had a head CT performed which revealed age-related atrophy and microvascular ischemic changes. No acute hemorrhage, infarction or mass effect. Chest x-ray was within normal. Patient had an EKG performed which shows sinus bradycardia with a heart rate at 53, chronic left bundle branch block. ASSESSMENT/PLAN 1. Possible seizure. The patient will have an electroencephalogram (EEG) as well as MRI of the brain without contrast. He will be on seizure precautions as well as aspiration precautions. Neurological checks and vital sign checks every 4 hours. Neurology has been consulted. Per recommendations no antiepileptic medications at this time for first seizure episode. 2. Epigastric/chest pain. Given his history of coronary artery disease, we will cycle his cardiac markers. Will obtain an echocardiogram. 3. Abnormal urinalysis. Suspect urinary tract infection. Patient will be placed on ciprofloxacin twice a day. Urine culture and blood cultures are pending. 4. Depression. Continue fluoxetine 20 mg at night. 5. Benign prostatic hypertrophy with chronic Saleh. Continue with Flomax. Patient follows with Dr. Morgan. Saleh was changed on 10/31/2016. 6. Hypertension. Blood pressure is currently stable. We will hold his losartan. 7. Bradycardia. Will hold his carvedilol. Patient has been complaining of dizziness. Will monitor on telemetry. Will also check orthostatics. 9. Hyperlipidemia. The patient takes Zocor at home. 10. Memory loss. The patient is on donepezil 5 mg by mouth daily at home. 11. Deep venous thrombosis (DVT) prophylaxis. Subcutaneously heparin. 12. CODE STATUS. Daughter reports that he is DO NOT RESUSCITATE. Healthcare proxy is Chloe Wadsworth. Patient will be admitted to telemetry floor. Expected to stay at least two midnights. I have both independently examined this patient as well as reviewed the note. I have discussed in detail with the resident the findings and plan of treatment as documented in the residents note. I will continue to follow the patient and offer further guidance to the patients care as necessary during this hospital stay. Sherie GONZALEZ
[2016-11-16] MEDS ORDERED: SIMVASTATIN 20 MG TAB PO SCH (21:00)
--- NOTE | 2016-11-16 22:40 | REPUSA ---
MRI of the brain Clinical history: altered mental status. Technique: Multiecho multiplanar MRI images of the brain were obtained without administration of cont rast. Diffusion weighted images with ADC mapping was also obtained. Findings: The ventricles and sulci are symmetric but prominent in size bilaterally. The brain parenchyma demons trates diffuse increased areas of T2 hyperintensity in the subcortical white matter. There is no midl ine shift, mass effect, or extra-axial fluid collection. The midline intracranial structures do not d emonstrate any gross abnormalities. The cervical cranial junction is intact. The orbits are unremarka ble. The visualized paranasal sinuses and mastoid air cells are clear. The osseous structures and sup erficial soft tissues are unremarkable. The vascular structures demonstrate appropriate flow voids. Impression: No evidence of acute hemorrhage or infarct. Mild chronic small vessel ischemic changes.
[2016-11-16] MEDS: ACETAMINOPHEN TAB 650MG DOSE (2X325MG) PO PRN (22:48)
[2016-11-16] MEDS: TAMSULOSIN 0.4 MG CAP PO SCH (22:49)
[2016-11-16] MEDS: FLUoxetine 20 MG CAP PO SCH (22:49)
[2016-11-16] MEDS: PRAVASTATIN 20 MG TAB PO SCH (22:49)
[2016-11-16] MEDS: HEPARIN SOD (PORCINE) 5000 UNITS/ML VIAL SC SCH (22:51)
[2016-11-16 23:59] VITALS: BP 110/65
[2016-11-17 04:47] VITALS: BP 92/53
[2016-11-17 06:07] LABS: MEAN CORPUSCULAR HEMOGLOBIN 30.9 pg (27.0-33.0); MEAN CORPUSCULAR HGB CONC 34.1 g/dl (32.0-36.5); MEAN CORPUSCULAR VOLUME 90.6 fl (80.0-96.0)
[2016-11-17 06:10] LABS: ANION GAP 5 MEQ/L (8-16); BLOOD UREA NITROGEN 13 MG/DL (7-18); CALCIUM LEVEL 7.4 MG/DL (8.8-10.2); CARBON DIOXIDE LEVEL 28 MEQ/L (21-32); CHLORIDE LEVEL 106 MEQ/L (98-107); CREATININE FOR GFR 0.63 MG/DL (0.70-1.30); GLOMERULAR FILTRATION RATE > 60.0 (>35); GLUCOSE, FASTING 90 MG/DL (83-110); POTASSIUM SERUM 3.9 MEQ/L (3.5-5.1); SODIUM LEVEL 139 MEQ/L (136-145)
[2016-11-17] MEDS: HEPARIN SOD (PORCINE) 5000 UNITS/ML VIAL SC SCH ×3 (06:12→21:50)
[2016-11-17 08:00] VITALS: BP_SYST 103; BP_SYST 107; BP_SYST 87; BP_DIAS 57; BP_DIAS 58; BP_DIAS 65
[2016-11-17] MEDS: CIPROFLOXACIN 400 MG in APPROPRIATE DILUENT 1 EA IV SCH ×2 (08:03→20:49)
--- NOTE | 2016-11-17 09:21 | ECGEPIP ---
Stationary ECG Study [facility] - ED Test Date: 2016-11-16 Pat Name: JOHN ALEGRE Department: Room: - Gender: M Cancer Registry Coordinator: sb : 1935 Requested By: Karime Pink Order Number: [id number] Reading MD: Rafael Moreno Measurements Intervals [place] Rate: 53 P: 49 [place]: 147 QRS: 50 QRSD: 146 T: 39 QT: 488 QTc: 459 Interpretive Statements SINUS BRADYCARDIA LEFT BUNDLE BRANCH BLOCK SIMILAR TO 07/30/16 Electronically Signed On 11-17-2016 9:20:53 EDT by Rafael Moreno
[2016-11-17] MEDS: NS 1,000 ML IV SCH ×2 (10:04→20:49)
[2016-11-17 12:00] VITALS: BP 85/56
--- NOTE | 2016-11-17 13:33 | ECHO ---
DATE OF SERVICE: 11/17/2016 REFERRING PROVIDER: Dr. Archana García REASON FOR ECHOCARDIOGRAM: Chest pain. 2D MEASUREMENTS: IVS: 1.1 cm LV: 4.2 cm LVPW: 1.0 cm LA: 3.0 cm Aorta: 3.4 cm RV: 3.6 cm IVC: 1.7 cm DOPPLER MEASUREMENTS: Peak velocity across the aortic valve: 2.1 m/s Peak velocity across the LVOT: 0.99 m/s Peak gradient across the aortic valve: 14.5 mmHg Mean gradient across the aortic valve: 8 mmHg Mitral E: 0.55 Mitral A: 0.69 with a ratio of 0.8 Maximum tricuspid valve velocity: 2.3 m/s 2D COMMENTS: 1. Normal left ventricular size, wall thickness and normal global left ventricular systolic function. The estimated left ventricular systolic ejection fraction is 60-65%. 2. Normal left atrium. Normal right atrium and right ventricle. 3. The atrial septum appeared to be normal without evidence of defect or shunt. 4. Normal aortic root. 5. Trace pericardial effusion noted, no evidence cardiac tamponade. 6. Mildly calcified aortic valve, leaflet excursion is probably mildly restricted. Normal mitral valve, tricuspid valve. The pulmonic valve appear to be normal in limited views. The proximal pulmonary artery branches were not visualized. 7. The inferior vena cava was normal in size, central venous pressure is most likely normal. DOPPLER: It detects trace to mild tricuspid regurgitation. The calculated pulmonary artery systolic pressure is about 30 mmHg. Abnormal relaxation pattern was noted across the mitral valve leaflets as well as the mitral valve annulus consistent with a delayed relaxation. IMPRESSION: 1. Normal global left ventricular systolic function. There were features of left ventricular diastolic dysfunction, grade 1. 2. Aortic valve sclerosis with mild aortic stenosis, but no aortic regurgitation. 3. Trace to mild tricuspid regurgitation with probably mild pulmonary hypertension. 5. Trace pericardial effusion noted, no evidence of cardiac tamponade. MTDD
[2016-11-17] MEDS: SERTRALINE HCL 25 MG TABLET PO SCH (14:14)
[2016-11-17 16:00] VITALS: BP 100/58
--- NOTE | 2016-11-17 18:29 | IPN ---
DATE: 11/17/2016 SUBJECTIVE: The patient seen and examined today. The patient stated he is still feeling weak. The patient does not remember what brought her to the hospital. I had a chance to talk to the family member who was also present when the patient had acute altered mental status episode. When the patient was on the porch and the patient started having extremity shaking and the patient started to slid down in the chair and then the patient started having loss of consciousness , no tongue biting, no bowel or bladder incontinence and they stated the patient never had those symptoms happen in the past. They noted that the patient had decreased oral intake in the last few days. OBJECTIVE: VITAL SIGNS: Temperature 98.4, pulse is 64, respirations 18, blood pressure is 107/58. Pulse oximetry is 95% on room air. GENERAL: Fatigue and also in acute distress, alert and oriented times three. HEENT: Normocephalic, atraumatic. Extraocular motor grossly intact. CARDIOVASCULAR: Decreased heart sound. Positive S1, S2. Regular rate. LUNGS: Clear to auscultation bilaterally. No wheezes or rhonchi. ABDOMEN: Soft, nontender, nondistended. Bowel sounds are present. No rebound or guarding. EXTREMITIES: No edema. No sign of cyanosis. LABORATORY DATA: White blood count (WBC) 9, hemoglobin 9.3, hematocrit 27.2, platelet count is 228. Sodium is 139, potassium 3.9, chloride 106, carbon dioxide 28, BUN 13, creatine 0.63, glomerular filtration rate (GFR) greater than 65, fasting glucose was 90, calcium is 7.4. Troponin I is 0.04. ASSESSMENT AND PLAN: 1. Altered mental status. The patient had a negative Magnetic Resonance Imaging (MRI). Electroencephalogram (EEG) has been ordered to rule out possible seizures. Neurology has been consulted. 2. Orthostatic hypotension, possibly due to very poor oral intake. The patient is on aggressive IV hydration. 3. The patient had a positive urinalysis. The patient is placed on empirical antibiotic with ciprofloxacin. Urine culture is pending at this moment. 4. Hypertension. Currently, the patient is hypotensive. Blood pressure medication is on hold. 5. History of coronary artery disease. The patient is on pravastatin. 6. Benign prostatic hypertrophy (BPH). The patient is on Flomax. 7. Depression on zoloft. 8. Bradycardia. Beta blockers on hold. 9. Deep vein thrombosis (DVT) prophylaxis on heparin. MTDD
[2016-11-17 20:00] VITALS: BP 98/63
[2016-11-17] MEDS: PRAVASTATIN 20 MG TAB PO SCH (20:47)
[2016-11-17] MEDS: ACETAMINOPHEN TAB 650MG DOSE (2X325MG) PO PRN (20:47)
[2016-11-17] MEDS: FLUoxetine 20 MG CAP PO SCH (20:48)
[2016-11-17] MEDS: TAMSULOSIN 0.4 MG CAP PO SCH (20:48)
[2016-11-18] VITALS: BP 116/66
[2016-11-18 04:00] VITALS: BP_SYST 127; BP_SYST 138; BP_SYST 95; BP_DIAS 63; BP_DIAS 69
[2016-11-18 05:21] LABS: MEAN CORPUSCULAR HEMOGLOBIN 29.7 pg (27.0-33.0); MEAN CORPUSCULAR HGB CONC 32.6 g/dl (32.0-36.5); MEAN CORPUSCULAR VOLUME 91.1 fl (80.0-96.0); RED CELL DISTRIBUTION WIDTH 14.1 % (11.5-14.5); WHITE BLOOD COUNT 8.4 K/mm3 (4.0-10.0)
[2016-11-18 05:29] LABS: ANION GAP 5 MEQ/L (8-16); BLOOD UREA NITROGEN 9 MG/DL (7-18); CALCIUM LEVEL 7.2 MG/DL (8.8-10.2); CARBON DIOXIDE LEVEL 26 MEQ/L (21-32); CHLORIDE LEVEL 109 MEQ/L (98-107); CREATININE FOR GFR 0.74 MG/DL (0.70-1.30); GLOMERULAR FILTRATION RATE > 60.0 (>35); GLUCOSE, FASTING 91 MG/DL (83-110); MAGNESIUM LEVEL 1.5 MG/DL (1.8-2.4); POTASSIUM SERUM 3.4 MEQ/L (3.5-5.1); SODIUM LEVEL 140 MEQ/L (136-145)
[2016-11-18] MEDS: HEPARIN SOD (PORCINE) 5000 UNITS/ML VIAL SC SCH ×3 (06:45→21:19)
[2016-11-18] MEDS: NS 1,000 ML IV SCH ×2 (06:45→15:45)
[2016-11-18 07:30] VITALS: BP 136/74
[2016-11-18] MEDS: MAG SULF 1GM/100ML (MAG RUN) 1 GM in APPROPRIATE DILUENT 1 EA IV SCH ×2 (07:34→08:49)
[2016-11-18] MEDS ORDERED: POTASSIUM CHLORIDE 10 MEQ SR TABLET PO ONE (08:00)
[2016-11-18] MEDS: SERTRALINE HCL 25 MG TABLET PO SCH (08:50)
[2016-11-18] MEDS: MAGNESIUM OXIDE 400 MG TAB (MAG-OX) PO SCH ×2 (08:50→21:19)
[2016-11-18] MEDS: CIPROFLOXACIN 400 MG in APPROPRIATE DILUENT 1 EA IV SCH ×2 (08:50→21:18)
[2016-11-18] MEDS ORDERED: PREVNAR 13 VACCINE SYRINGE (CPT CODE:90670) IM ONE (09:00)
--- NOTE | 2016-11-18 11:01 | IPN ---
DATE: 11/18/2016 SUBJECTIVE: Patient seen and examined in the room today. Per patient and family caregivers, patient started to eat more. No overnight events. No shortness of breath. No chest pain. Patient still feels very weak, feels dizzy especially when he tried to stand up or sit up. OBJECTIVE: Vital signs: Temperature 98.9, pulse 67, respirations 20, blood pressure is 136/74, pulse ox 95% on room air. General: Fatigue. No sign of acute distress. Alert and oriented times three. HEENT: Normocephalic, atraumatic. Extraocular movement grossly intact. Cardiovascular: Decreased heart sounds, positive S1, S2. Regular rate. Lungs: Clear to auscultation bilaterally. No wheezes or rhonchi. Abdomen: Soft, nontender, nondistended. Bowel sounds present. No rebound. No guarding. Extremities: No edema. No cyanosis. LABORATORY DATA: WBC 8.4, hemoglobin 8.5, hematocrit 26, platelet count is 222. Sodium is 140, potassium 3.4, chloride 109, carbon dioxide 26, BUN 9, creatinine 0.74, glomerular filtration rate is greater than 60, fasting glucose 91, magnesium 1.5, calcium 7.2. ASSESSMENT AND PLAN: 1. Altered mental status. The patient had a negative Magnetic Resonance Imaging (MRI). Electroencephalogram (EEG) has been ordered to rule out seizures. Patient's altered mental change may be due to poor oral intake also. Per the caregiver (two daughters), patient has been decreased oral intake due to depression. Patient become very weak a few days prior to admission. There is no event on telemetry. patient has active urinary tract infection (UTI) currently being treated with ciprofloxacin. 2. Orthostatic hypotension, secondary to very poor oral intake secondary to depression. The patient recently lost his and he is still experiencing significant grief/depression. Patient continued on aggressive IV fluid. The patient is still also hypotensive. 3. Positive urinalysis. The patient is started on ciprofloxacin. Urine culture is still pending. 4. History of hypertension. Patient is hypotensive. Blood pressure medication is on hold. 5. History of coronary artery disease. The patient is on pravastatin. 6. Benign prostatic hypertrophy (BPH), on Flomax. 7. Depression on fluoxetine. 8. History of bradycardia. Beta blockers on hold. Patient has average heart rate ranging between 65-70. 9. Deep vein thrombosis (DVT) prophylaxis on heparin. MTDD
[2016-11-18 11:05] VITALS: BP 123/67
[2016-11-18 14:00] VITALS: BP 116/63
--- NOTE | 2016-11-18 14:02 | CR ---
DATE OF CONSULTATION: 11/18/2016 REFERRING PHYSICIAN: Dr. Sherie Morton REASON FOR CONSULTATION: Loss of consciousness with altered mental status. HISTORY OF PRESENT ILLNESS: The patient is a male with a past medical history significant for history of transient ischemic attack with recent significant major depressive disorder with thoughts of suicide, wanting to end his life, presenting to [facility] with an episode of losing consciousness. The patient is accompanied by his daughters. After speaking to the daughters, they were able to provide history. Flex has been laying in bed for most of the week refusing to eat any food and drinking liquids minimally. He did agree to go ahead and sit up and agreed to get out of house for some fresh air. He was able to sit in a chair and was taken outside. The patient, while sitting in a chair, felt nauseated and dizzy. He then started to lose consciousness and collapsed and fell out of the chair. He had some shaking activity of the body. He was not incontinent of urine or stool and did not bite his tongue. He was with loss of consciousness for approximately 1-2 minutes. Soon after, the patient was confused for approximately a few minutes and was able to then answer questions appropriately. Emergency medical services (EMS) arrived within 5 minutes. He was able to answer all of their questions. There did not appear to be any prolonged postictal phase. The patient was found to have orthostatic hypotension during this admission. Likely, he was dehydrated and likely had an episode of syncope with syncopal seizure. The patient denies having any suicidal ideation at this time. He is agreeable to consider starting an antidepressant medication, specifically Seroquel. His daughters will try to encourage him to eat and drink better at home. When at home, the patient tends to not listen to his daughters and refuses to eat. The patient denies any focal weakness, numbness, dizziness, dysarthria, dysphasia. He does have some baseline dysarthria secondary to not having his dentures in his mouth. REVIEW OF SYSTEMS: 14-point review of systems obtained and is negative except as per history of present illness. PAST MEDICAL HISTORY: Hypertension, hyperlipidemia, coronary artery disease, benign prostatic hypertrophy, history of transient ischemic attack. PAST SURGICAL HISTORY: Bilateral cataract surgery, cystoscopy with left ureteral stent, shunt in bilateral eyes for glaucoma, transurethral resection of prostate, left shoulder surgery and hernia repair. HOME MEDICATIONS: - carvedilol 6.25 mg by mouth twice a day - losartan 50 mg at night - fluoxetine 20 mg by mouth at night - simvastatin 20 mg by mouth at night - Flomax 0.4 mg by mouth at night - doxazosin 2 mg by mouth daily - donepezil 5 mg by mouth daily - Geritol by mouth daily ALLERGIES: PENICILLIN causing anaphylaxis. SOCIAL HISTORY: The patient is a former smoker. Quit 20 years. Smoked a pipe and chewing tobacco for 20 to 30 years. Occasional cigarette use. Denies any alcohol or recreational drug use. FAMILY HISTORY: Noncontributory. PHYSICAL EXAMINATION: Blood pressure is 107/58 supine, 103/65 sitting, 87/57 standing. Heart rate 64. 95% oxygenation on room air, temperature is 98.4 degrees Fahrenheit, TSH 1.79. Urinalysis shows positive urinary tract infection (UTI). Head CT is negative. MRI shows mild small-vessel ischemic disease without any evidence of stroke. Current height 6 feet 2 inches, current weight is 61.5 kg. NEUROLOGIC EXAMINATION: The patient is alert, oriented to person, place and time. Speech, language, comprehension are intact. Pupils are 3 mm round, reactive to light. Extraocular movements are intact in all directions. Tongue is midline. Sensation V1, V2-V3 is intact to light touch. No facial asymmetry on activation. Strength is 5/5, including bilateral deltoids, biceps, triceps, quadriceps, anterior tibialis. Sensory is intact to light touch in all four extremities. Coordination: Normal [id number] without any signs of ataxia, dysmetria. Deep tendon reflexes are 2 throughout. Babinski signs are absent. Romberg testing deferred. ASSESSMENT: 1. Orthostatic hypotension and hypovolemia leading to episode of syncope after continuing blood pressure medications through the week and laying flat without getting out of bed for 1 week leading to orthostasis upon sitting. Less likely seizure. PLAN 1. Obtain EEG. 2. Continue telemetry monitoring. 3. Treat major depression, start Zoloft 25 mg daily. Due to past history and thoughts of suicide, consider a psychiatric consultation. 4. Hold off on starting any antiepileptic medications at this time. 5. Continue to treat underlying urinary tract infection.
[2016-11-18] MEDS: TAMSULOSIN 0.4 MG CAP PO SCH (21:18)
[2016-11-18] MEDS: FLUoxetine 20 MG CAP PO SCH (21:18)
[2016-11-18] MEDS: PRAVASTATIN 20 MG TAB PO SCH (21:18)
[2016-11-18 22:00] VITALS: BP 130/71
[2016-11-19] MEDS: HEPARIN SOD (PORCINE) 5000 UNITS/ML VIAL SC SCH ×3 (05:08→20:37)
[2016-11-19] MEDS: NS 1,000 ML IV SCH ×3 (05:08→20:38)
[2016-11-19 06:00] VITALS: BP 142/67
[2016-11-19 06:13] LABS: MEAN CORPUSCULAR HGB CONC 33.2 g/dl (32.0-36.5); MEAN CORPUSCULAR VOLUME 90.2 fl (80.0-96.0); RED CELL DISTRIBUTION WIDTH 14.5 % (11.5-14.5); WHITE BLOOD COUNT 7.3 K/mm3 (4.0-10.0)
[2016-11-19 06:24] LABS: ANION GAP 5 MEQ/L (8-16); BLOOD UREA NITROGEN 7 MG/DL (7-18); CALCIUM LEVEL 7.6 MG/DL (8.8-10.2); CARBON DIOXIDE LEVEL 27 MEQ/L (21-32); CHLORIDE LEVEL 110 MEQ/L (98-107); CREATININE FOR GFR 0.65 MG/DL (0.70-1.30); GLOMERULAR FILTRATION RATE > 60.0 (>35); GLUCOSE, FASTING 81 MG/DL (83-110); SODIUM LEVEL 142 MEQ/L (136-145)
[2016-11-19 08:41] LABS: RETIC HEMOGLOBIN CONTENT CHr 32.9 PG (24-36); RETICULOCYTE % ADVIA2120 2.1 % (0.5-1.5)
[2016-11-19 09:00] LABS: MAGNESIUM LEVEL 1.8 MG/DL (1.8-2.4); PERCENT SATURATION 29.4 % (19.7-37.4)
[2016-11-19] MEDS ORDERED: SERTRALINE HCL 50 MG TAB PO SCH (09:00)
[2016-11-19] MEDS: MAGNESIUM OXIDE 400 MG TAB (MAG-OX) PO SCH ×2 (09:23→20:37)
[2016-11-19] MEDS: CIPROFLOXACIN 400 MG in APPROPRIATE DILUENT 1 EA IV SCH (09:23)
[2016-11-19 09:24] LABS: FOLATE 11.9 NG/ML (>5.4)
--- NOTE | 2016-11-19 14:23 | IPNPDOC ---
Text Note Date of Service The patient was seen on 11/19/16. NOTE Subjective: Feels much improved. Appetite has improved as well. OOB and has started to ambulate. Objective: Vitals: (see below) General: No acute distress, laying comfortably in bed. HEENT: Moist mucous membranes. Neck: No JVD or lymphadenopathy Cardiac: RRR, No murmurs Pulm: Clear to auscultation b/l. No wheezing, rhonchi Abd: NT/ND + BS Ext: No edema or cyanosis Labs (see below) Images: Assessment/Plan 1. Orthostatic hypotension - 2/2 dehydration, poor PO intake. Depressed over his 's passing. Now his appetite has improved. on IVF. 2. UTI - Ent. Faecalis and staph aureus?? On Cipro. Change to vanco final pending cultures. 3. Major depression - not complaint with outpt SSRI. Spoke with Dr. Benavides with recommendation to d/c prozac and continue zoloft at 25mg daily. Will see patient given his suicidal ideations (plan to shoot himself with a gun at home) . Sitter one to one. 4. ? clonic activity - evaluated by neuro - likely patient's hypotensive presentation, hold off on AED at this time. EEG pending. 5. H/o CAD - start ASA. On Statin 6. H/o bradycardia - BB on hold 7. BPH - on Flomax DVT prophy: Heparin SQ DNR/DNI. Chloe Wadsworth is POA -[phone]. VS,Jennifere, I+O VS, Fishbone, I+O Laboratory Tests 11/19/16 05:35 Red Blood Count 2.66 L, Mean Corpuscular Volume 90.2, Mean Corpuscular Hemoglobin 30.0, Mean Corpuscular Hemoglobin Concent 33.2, Red Cell Distribution Width 14.5, Calcium Level 7.6 L Vital Signs Date Time Temp Pulse Resp B/P (MAP) Pulse Ox O2 Delivery O2 Flow Rate FiO2 11/19/16 09:25 Room Air 11/19/16 06:00 98.5 62 18 142/67 (92) 92 11/18/16 13:00 1.0 I&O- Last 24 Hours up to 6 AM 11/19/16 06:00 Intake Total 880 ml Output Total 2550 ml Balance -1670 ml STEPHIE SCRUGGS MD November 19, 2016 14:23
[2016-11-19] MEDS: SERTRALINE HCL 25 MG TABLET PO SCH (14:45)
[2016-11-19] MEDS: VANCOMYCIN HCL 1,000 MG, VIAL MATE ADAPTER 1 EACH in D5W 250 ML IV SCH (14:45)
[2016-11-19 14:50] VITALS: BP_SYST 116; BP_SYST 125; BP_SYST 88; BP_DIAS 55; BP_DIAS 57; BP_DIAS 60
--- NOTE | 2016-11-19 14:53 | PHACANCOPD ---
PHARMACY VANCOMYCIN DOSING Pt Demographics Demographics Patient Age:81 , Weight:66.000 , Gender: male Adjusted Body Weight Date: 11/19/16, Adjusted Body Weight: Kg Vancomycin Vancomycin indication: UTI Vancomycin Target Ranges: 15-20 mcg/ml Vancomycin Load Y/N: Yes Load Dose Date Time Vancomycin Load Dose: 1500mg Date: 11/19/16 Time: 1500 Vancomycin Dose Date: 11/19/16. Current Vancomycin Dose: [1g IV Q12H] Intermittent Dosing?: No Labs Labs Item Value Date Time White Blood Count 7.3 K/mm3 11/19/16 0535 White Blood Count 8.4 K/mm3 11/18/16447 White Blood Count 9.0 K/mm3 11/17/16 05 Creatinine 0.65 MG/DL L 11/19/16 0535 Creatinine 0.74 MG/DL 11/18/16447 Creatinine 0.63 MG/DL L 11/17/16 0527 Micro Microbiology 11/16/16 Blood Culture - Preliminary, Resulted No Growth after 72 hours. All specime... 11/16/16 Blood Culture - Preliminary, Resulted No Growth after 72 hours. All specime... 11/16/16 Urine Culture - Preliminary, Resulted Enterococcus Faecalis Staphylococcus Aureus Creatinine Clearance Date:11/19/16. Estimated Creatinine Clearance: [~70ml/min]. Pending Labs Vancomycin trough scheduled 11/21/16 @1400 Assessment and Plan Maintaining Current Dose?: Yes Reason for dose change: No Dose Change Pharmacist Note Pharmacist Note Date: 11/19/16. Pharmacist note: Day #1 empiric vancomycin initiated with a 1500mg loading dose, followed by a maintenance regimen of 1g IV Q12H for the treatment of a UTI - aiming for a goal trough of 15-20mcg/ml. WBC is currently WNL, and urine culture resulted enterococcus and staph aureus still awaiting final results. No PMH of MRSA or vanco use here at [facility]. A vancomycin trough has been scheduled 11/21/16 @1400, prior to the 5th dose. We will continue to monitor and make adjustments if needed. YANDY MANN [facility] November 19, 2016 14:53
[2016-11-19] MEDS ORDERED: NS 1,000 ML IV ONE (15:30)
[2016-11-19] MEDS ORDERED: VANCOMYCIN HCL 500 MG in D5W MINI-BAG PLUS 100 ML IV ONE (16:00)
[2016-11-19] MEDS: TAMSULOSIN 0.4 MG CAP PO SCH (20:37)
[2016-11-19] MEDS: FLUoxetine 20 MG CAP PO SCH (20:37)
--- NOTE | 2016-11-19 20:52 | EEG ---
DATE OF PROCEDURE: 11/19/2016 REFERRING PHYSICIAN: Archana García MD DIAGNOSIS: Seizure. [id number] HISTORY: The patient is an 81-year-old man with history of depression and suicidal ideation. He had an episode of loss of consciousness. This EEG was done to rule out epileptic potential. He is currently taking ciprofloxacin, Prozac, Flomax, pravastatin, Zoloft, etc. TECHNICAL DESCRIPTION: This digital EEG was recorded by 21 scalp, ear and two EKG electrodes and was reviewed in bipolar and referential montages following reformatting in 10-20 international electrode placement system. INTERPRETATION: The patient was noted to be in awake and drowsy states during this EEG. Resting awake background rhythm consisted of well-formed posterior dominant rhythm with anterior/posterior gradient comprising of 8 Hz alpha activity measuring 10-20 microvolts in amplitude, which was symmetric and reactive to eye opening. Attenuation of posterior dominant rhythm was seen during transition into drowsiness. Stage I and II sleep were reviewed and were symmetric bilaterally. Hyperventilation could not be performed. Photic stimulation remained unremarkable. EKG revealed normal sinus rhythm. No focal, lateralizing or epileptiform abnormalities were seen. No clinical or electrographic seizures were recorded. CONCLUSION: This EEG in awake, drowsy states, stage I and II sleep is within normal limits.
[2016-11-19 22:00] VITALS: BP 140/72
[2016-11-20] MEDS: VANCOMYCIN HCL 1,000 MG, VIAL MATE ADAPTER 1 EACH in D5W 250 ML IV SCH ×2 (03:55→14:39)
[2016-11-20] MEDS: NS 1,000 ML IV SCH ×2 (04:21→18:00)
[2016-11-20 06:00] VITALS: BP 137/75
[2016-11-20 06:22] LABS: MEAN CORPUSCULAR HEMOGLOBIN 29.7 pg (27.0-33.0); MEAN CORPUSCULAR HGB CONC 32.6 g/dl (32.0-36.5); MEAN CORPUSCULAR VOLUME 91.1 fl (80.0-96.0); RED CELL DISTRIBUTION WIDTH 14.7 % (11.5-14.5); WHITE BLOOD COUNT 7.6 K/mm3 (4.0-10.0)
[2016-11-20] MEDS: HEPARIN SOD (PORCINE) 5000 UNITS/ML VIAL SC SCH ×2 (06:23→14:39)
[2016-11-20 06:41] LABS: ANION GAP 6 MEQ/L (8-16); BLOOD UREA NITROGEN 5 MG/DL (7-18); CALCIUM LEVEL 7.1 MG/DL (8.8-10.2); CARBON DIOXIDE LEVEL 26 MEQ/L (21-32); CHLORIDE LEVEL 109 MEQ/L (98-107); GLOMERULAR FILTRATION RATE > 60.0 (>35); GLUCOSE, FASTING 87 MG/DL (83-110); POTASSIUM SERUM 3.9 MEQ/L (3.5-5.1); SODIUM LEVEL 141 MEQ/L (136-145)
[2016-11-20 07:05] VITALS: BP_SYST 158; BP_SYST 161; BP_SYST 164; BP_DIAS 79; BP_DIAS 82
[2016-11-20 08:41] LABS: ALBUMIN 1.7 GM/DL (3.2-5.2); ALBUMIN/GLOBULIN RATIO 0.52 (1.00-1.93); ALKALINE PHOSPHATASE 70 U/L (45-117); ALT/SGPT 27 U/L (12-78); ANION GAP 4 MEQ/L (8-16); AST/SGOT 26 U/L (15-37); BILIRUBIN,TOTAL 0.3 MG/DL (0.2-1.0); BLOOD UREA NITROGEN 5 MG/DL (7-18); CALCIUM LEVEL 7.1 MG/DL (8.8-10.2); CARBON DIOXIDE LEVEL 27 MEQ/L (21-32); CHLORIDE LEVEL 109 MEQ/L (98-107); CREATININE FOR GFR 0.62 MG/DL (0.70-1.30); GLOMERULAR FILTRATION RATE > 60.0 (>35); GLUCOSE, FASTING 85 MG/DL (83-110); POTASSIUM SERUM 3.9 MEQ/L (3.5-5.1); SODIUM LEVEL 140 MEQ/L (136-145)
[2016-11-20] MEDS: MAGNESIUM OXIDE 400 MG TAB (MAG-OX) PO SCH ×2 (09:42→21:05)
[2016-11-20] MEDS: SERTRALINE HCL 25 MG TABLET PO SCH (09:42)
[2016-11-20] MEDS ORDERED: GASTROGRAFIN SOLUTION 30ML PO ONE (10:30)
[2016-11-20] MEDS ORDERED: GASTROGRAFIN SOLUTION 30ML (Q9963) PO ONE (11:00)
[2016-11-20] MEDS ORDERED: ISOVUE-370 76% 100ML VIAL (Q9967) As Ordered ONE (12:53)
--- NOTE | 2016-11-20 14:24 | REP ---
CT ABDOMEN/PELVIS WITH ORAL AND IV CONTRAST: TECHNIQUE: Axial contrast enhanced images from the lung bases to the pubic symphysis using 100 mL Isovue 370 intravenous contrast material with multiplanar reformations. In the visualized lung bases, there are small effusions with mild bibasilar atelectasis/infiltrate. The liver is essentially unremarkable. The spleen demonstrates tiny calcified granulomas. Adrenals and pancreas are unremarkable. There is no hydronephrosis bilaterally. There is a cyst in the upper pole of the right kidney. Atherosclerotic calcifications are seen of the abdominal aorta without aneurysm. There is no adenopathy. There is no free air or free fluid. No bowel wall thickening is seen. Urinary bladder contains a Saleh catheter with some air and fluid within it. There is a right inguinal hernia containing fat. There is a small hiatal hernia. There appears to be a cluster of small stones in the right posterior urinary bladder. Right common femoral vein appears mildly enlarged with questionable internal filling defect. This could represent a partial thrombosis. Recommend ultrasound to further evaluate. IMPRESSION: Small bilateral pleural effusions with mild bibasilar atelectasis/infiltrate. Small hiatal hernia. Right inguinal hernia. Saleh catheter in the urinary bladder. Cluster of small stones in the urinary bladder. No free air, free fluid, or obstruction. Possible thrombus in the right common femoral vein. Recommend ultrasound to evaluate for DVT. Signed by Zach Cole MD 11/21/2016 07:06 P
[2016-11-20 14:30] VITALS: BP_SYST 111; BP_SYST 128; BP_SYST 93; BP_DIAS 64; BP_DIAS 73; BP_DIAS 75
--- NOTE | 2016-11-20 15:15 | IPNPDOC ---
Text Note Date of Service The patient was seen on 11/20/16. NOTE Subjective: Appetite continues to to improve. OOB and has started to ambulate with PT. Objective: Vitals: (see below) General: No acute distress, laying comfortably in bed. HEENT: Moist mucous membranes. Neck: No JVD or lymphadenopathy Cardiac: RRR, No murmurs Pulm: Clear to auscultation b/l. No wheezing, rhonchi Abd: NT/ND + BS Ext: No edema or cyanosis Labs (see below) Images: CT Abd/pelvis 11/20/16 Small bilateral pleural effusions with mild bibasilar atelectasis/infiltrate. Small hiatal hernia. Right inguinal hernia. Saleh catheter in the urinary bladder. Cluster of small stones in the urinary bladder. No free air, free fluid, or obstruction. Possible thrombus in the right common femoral vein. Recommend ultrasound to evaluate for DVT. Assessment/Plan 1. Orthostatic hypotension - resolved. 2/2 dehydration, poor PO intake. Depressed over his 's passing. Now his appetite has improved. s/p IVF. 2. UTI - Ent. Faecalis and staph aureus?? s/p Cipro. On vanco -final pending cultures. 3. Left sided abd discomfort - non specific. Lipase wnl. CT abd/pelvis see above. Cont to monitor. + constipation 4. ? Right common femoral dvt - will obtain LE U/S. 5. Major depression - not complaint with outpt SSRI. Spoke with Dr. Benavides with recommendation to d/c prozac and continue zoloft at 25mg daily. Will see patient given his suicidal ideations (plan to shoot himself with a gun at home) . Sitter one to one. 6. ? clonic activity - evaluated by neuro - likely patient's hypotensive presentation, hold off on AED at this time. EEG negative. 5. H/o CAD - start ASA. On Statin 6. H/o bradycardia - BB on hold 7. BPH - on Flomax DVT prophy: Heparin SQ DNR/DNI. Chloe Wadsworth is POA -[phone]. VS,Fishbone, I+O VS, Fishbone, I+O Laboratory Tests 11/20/16 05:55 Red Blood Count 2.72 L, Mean Corpuscular Volume 91.1, Mean Corpuscular Hemoglobin 29.7, Mean Corpuscular Hemoglobin Concent 32.6, Red Cell Distribution Width 14.7 H, Calcium Level 7.1 L 11/20/16 07:50 Calcium Level 7.1 L, Aspartate Amino Transf (AST/SGOT) 26, Alanine Aminotransferase (ALT/SGPT) 27, Lactate Dehydrogenase 153, Alkaline Phosphatase 70, Total Bilirubin 0.3, Total Protein 5.0 L, Albumin 1.7 L Vital Signs Date Time Temp Pulse Resp B/P (MAP) Pulse Ox O2 Delivery O2 Flow Rate FiO2 11/20/16 14:00 99.1 95 Room Air 11/20/16 07:05 75 161/79 (106) 76 164/82 (109) 86 158/79 (105) 11/20/16 06:00 18 11/18/16 13:00 1.0 I&O- Last 24 Hours up to 6 AM 11/20/16 06:00 Intake Total 4315 ml Output Total 2775 ml Balance 1540 ml STEPHIE SCRUGGS MD November 20, 2016 15:15
--- NOTE | 2016-11-20 16:26 | REP ---
BILATERAL LOWER EXTREMITY ULTRASOUND: HISTORY: Pain and swelling bilaterally. RIGHT THIGH: TECHNIQUE: Multiple ultrasonographic images of the deep venous structures of the right thigh were obtained in the longitudinal and transverse scan planes along with Doppler interrogation techniques and augmentation techniques along with compression techniques. FINDINGS: There is abnormal echogenic material seen from the common femoral vein to and including the popliteal vein with decreased augmentation and decreased color flow along with noncoaptability of the aforementioned vessels. LEFT THIGH: TECHNIQUE: Multiple ultrasonographic images of the deep venous structures of the left thigh were obtained from the common femoral vein to the popliteal vein along with Doppler interrogation and color flow Doppler images. FINDINGS: There is no abnormal echogenic material seen within any of the visualized deep venous structures that would suggest acute thrombosis. Coaptation is unremarkable throughout. Doppler interrogation shows an expected response to respiratory variability and augmentation. The color flow images show what appears to be a normal vascular pattern throughout. IMPRESSION: Positive right sided deep vein thrombosis as described above. Signed by Jose Solitario DO 11/21/2016 09:05 A
[2016-11-20] MEDS: FLUoxetine 20 MG CAP PO SCH (21:05)
[2016-11-20] MEDS: TAMSULOSIN 0.4 MG CAP PO SCH (21:05)
[2016-11-20] MEDS: ENOXAPARIN 80 MG/0.8 ML SYRINGE (J1650) SC SCH (21:05)
[2016-11-20 22:00] VITALS: BP 131/73
[2016-11-21] MEDS: NS 1,000 ML IV SCH ×4 (02:35→21:37)
[2016-11-21] MEDS: VANCOMYCIN HCL 1,000 MG, VIAL MATE ADAPTER 1 EACH in D5W 250 ML IV SCH ×2 (02:36→15:42)
[2016-11-21 06:00] VITALS: BP 111/57
--- NOTE | 2016-11-21 06:21 | CR ---
DATE OF CONSULTATION: 11/19/2016 HISTORY OF PRESENT ILLNESS: I was asked to see this 81-year-old white man who was admitted due to apparently seizure-like activity that was witnessed by the patient's daughter. According to the family, the patient has been increasingly depressed since his in June of this year. He has become more and more weaker and his appetite has become very poor, and is basically staying in bed most of the time. His oral intake is poor. The patient had voiced that he wanted to go home and shoot himself and indicated that he did have a gun. He verified this information to me that he had been having thoughts of going home and shooting himself. He admits to feeling very depressed since his passed, and to feeling very lonely especially at night, despite the fact that he does have family that is apparently supportive. Difficult to obtain a lot of information from him because he had difficulty speaking clearly. PAST PSYCHIATRIC HISTORY: The patient has no prior history of psychiatric treatment or suicidal attempts. FAMILY HISTORY: Unable to obtain. SUBSTANCE ABUSE HISTORY: This is negative according to the patient. MENTAL STATUS EXAMINATION: He is alert and oriented times three. He is pleasant and cooperative. Eye contact is fair. Psychomotor activity is decreased. No formal thought disorder noted. He responded in simple one-word answers. At times his speech was garbled and hard to understand. He did admit that he had suicidal thoughts of shooting himself. He was not homicidal, not psychotic. His mood is depressed. Affect is flat. Concentration fair. Memory intact. Insight and judgment poor. MEDICAL HISTORY: The patient currently has a urinary tract infection that he is being treated for , possible seizures, benign prostatic hypertrophy, hypertension. DIAGNOSIS: Major depressive disorder, single episode, severe without psychotic symptoms. RECOMMENDATIONS: At this point, when the patient is very depressed and voicing suicidal ideations. When stable he should be transferred to the psychiatric unit for further evaluation and treatment. LISA
[2016-11-21 06:43] LABS: MEAN CORPUSCULAR HEMOGLOBIN 30.9 pg (27.0-33.0); MEAN CORPUSCULAR VOLUME 90.9 fl (80.0-96.0); RED CELL DISTRIBUTION WIDTH 15.3 % (11.5-14.5); WHITE BLOOD COUNT 7.6 K/mm3 (4.0-10.0)
[2016-11-21 06:57] LABS: ANION GAP 5 MEQ/L (8-16); BLOOD UREA NITROGEN 6 MG/DL (7-18); CALCIUM LEVEL 7.2 MG/DL (8.8-10.2); CARBON DIOXIDE LEVEL 27 MEQ/L (21-32); CHLORIDE LEVEL 107 MEQ/L (98-107); CREATININE FOR GFR 0.54 MG/DL (0.70-1.30); GLOMERULAR FILTRATION RATE > 60.0 (>35); GLUCOSE, FASTING 77 MG/DL (83-110); POTASSIUM SERUM 3.6 MEQ/L (3.5-5.1); SODIUM LEVEL 139 MEQ/L (136-145)
[2016-11-21] MEDS: SERTRALINE HCL 25 MG TABLET PO SCH (08:11)
[2016-11-21] MEDS: MAGNESIUM OXIDE 400 MG TAB (MAG-OX) PO SCH ×2 (08:11→20:31)
[2016-11-21] MEDS: ENOXAPARIN 80 MG/0.8 ML SYRINGE (J1650) SC SCH ×2 (08:11→20:31)
[2016-11-21] MEDS: ACETAMINOPHEN TAB 650MG DOSE (2X325MG) PO PRN (08:11)
[2016-11-21 10:00] VITALS: BP_SYST 116; BP_SYST 126; BP_SYST 134; BP_DIAS 64; BP_DIAS 66; BP_DIAS 68
[2016-11-21] MEDS ORDERED: ELIQ5TAB PO (13:22)
--- NOTE | 2016-11-21 13:22 | IPNPDOC ---
Text Note Date of Service The patient was seen on 11/21/16. NOTE Subjective: Appetite continues to to improve. OOB and has started to ambulate with PT. Mood slightly improved. Objective: Vitals: (see below) General: No acute distress, laying comfortably in bed. HEENT: Moist mucous membranes. Neck: No JVD or lymphadenopathy Cardiac: RRR, No murmurs Pulm: Clear to auscultation b/l. No wheezing, rhonchi Abd: NT/ND + BS Ext: No edema or cyanosis. distal pulses intact. Not suicidal at this time. Labs (see below) Images: CT Abd/pelvis 11/20/16 Small bilateral pleural effusions with mild bibasilar atelectasis/infiltrate. Small hiatal hernia. Right inguinal hernia. Saleh catheter in the urinary bladder. Cluster of small stones in the urinary bladder. No free air, free fluid, or obstruction. Possible thrombus in the right common femoral vein. Recommend ultrasound to evaluate for DVT. U/S LE 11/20/16 FINDINGS: There is no abnormal echogenic material seen within any of the visualized deep venous structures that would suggest acute thrombosis. Coaptation is unremarkable throughout. Doppler interrogation shows an expected response to respiratory variability and augmentation. The color flow images show what appears to be a normal vascular pattern throughout. IMPRESSION: Positive right sided deep vein thrombosis as described above. Assessment/Plan 1. Orthostatic hypotension - 2/2 dehydration, and severe protein-calorie malnutrition. ? related to flomax, which is on hold for now. Depressed over his 's passing. Now his appetite has improved. On IVF. 2. UTI - Ent. Faecalis and staph aureus?? On vanco -final pending cultures. 3. Left sided abd discomfort - non specific. Lipase wnl. CT abd/pelvis see above. Cont to monitor. + constipation. Optimize bowel regimen. 4. Right common femoral dvt - started on Lovenox. Will send rita jeffers to pharmacy for pre-auth. 5. Major depression - not complaint with outpt SSRI. Spoke with Dr. Benavides with recommendation to d/c prozac and continue zoloft at 25mg daily. Will see patient given his suicidal ideations (plan to shoot himself with a gun at home) . Sitter one to one. Psych recommending inpatient mental health unit upon medical stabilization. 6. ? clonic activity - evaluated by neuro - likely patient's hypotensive presentation, hold off on AED at this time. EEG negative. 5. H/o CAD - start ASA. On Statin 6. H/o bradycardia - BB on hold 7. BPH - on Flomax DVT prophy: Lovenox DNR/DNI. Chloe Wadsworth is A -[phone]. VS,Fishbone, I+O VS, Fishbone, I+O Laboratory Tests 11/21/16 06:24 Red Blood Count 2.58 L, Mean Corpuscular Volume 90.9, Mean Corpuscular Hemoglobin 30.9, Mean Corpuscular Hemoglobin Concent 34.0, Red Cell Distribution Width 15.3 H, Calcium Level 7.2 L Vital Signs Date Time Temp Pulse Resp B/P (MAP) Pulse Ox O2 Delivery O2 Flow Rate FiO2 11/21/16 06:00 97.8 71 18 111/57 (75) 96 Room Air 11/18/16 13:00 1.0 I&O- Last 24 Hours up to 6 AM 11/21/16 05:59 Intake Total 2605 ml Output Total 2925 ml Balance -320 ml STEPHIE SCRUGGS MD Nov 21, 2016 13:22
[2016-11-21 14:00] VITALS: BP 140/78
[2016-11-21] MEDS: FLUoxetine 20 MG CAP PO SCH (20:31)
[2016-11-21 22:00] VITALS: BP 123/67
[2016-11-22] MEDS: VANCOMYCIN HCL 1,000 MG, VIAL MATE ADAPTER 1 EACH in D5W 250 ML IV SCH (02:42)
[2016-11-22] MEDS: ACETAMINOPHEN TAB 650MG DOSE (2X325MG) PO PRN ×2 (04:44→08:41)
[2016-11-22] MEDS: NS 1,000 ML IV SCH ×3 (05:19→16:49)
[2016-11-22 05:57] LABS: MEAN CORPUSCULAR HEMOGLOBIN 29.6 pg (27.0-33.0); MEAN CORPUSCULAR HGB CONC 32.6 g/dl (32.0-36.5); MEAN CORPUSCULAR VOLUME 90.7 fl (80.0-96.0); RED CELL DISTRIBUTION WIDTH 15.7 % (11.5-14.5); WHITE BLOOD COUNT 8.1 K/mm3 (4.0-10.0)
[2016-11-22 06:00] VITALS: BP 148/84
[2016-11-22 06:14] LABS: ANION GAP 6 MEQ/L (8-16); BLOOD UREA NITROGEN 7 MG/DL (7-18); CALCIUM LEVEL 7.4 MG/DL (8.8-10.2); CARBON DIOXIDE LEVEL 27 MEQ/L (21-32); CHLORIDE LEVEL 111 MEQ/L (98-107); CREATININE FOR GFR 0.58 MG/DL (0.70-1.30); GLOMERULAR FILTRATION RATE > 60.0 (>35); GLUCOSE, FASTING 78 MG/DL (83-110); POTASSIUM SERUM 3.6 MEQ/L (3.5-5.1); SODIUM LEVEL 144 MEQ/L (136-145)
[2016-11-22] MEDS ORDERED: POTASSIUM CHLORIDE 10 MEQ SR TABLET PO ONE (08:15)
[2016-11-22 08:34] LABS: MAGNESIUM LEVEL 1.8 MG/DL (1.8-2.4)
[2016-11-22] MEDS: SERTRALINE HCL 25 MG TABLET PO SCH (08:35)
[2016-11-22] MEDS: ENOXAPARIN 80 MG/0.8 ML SYRINGE (J1650) SC SCH ×2 (08:35→19:58)
[2016-11-22] MEDS: MAGNESIUM OXIDE 400 MG TAB (MAG-OX) PO SCH (08:35)
--- NOTE | 2016-11-22 10:48 | IPNPDOC ---
Text Note Date of Service The patient was seen on 11/22/16. NOTE Subjective: Pt dizzy/lightheaded on ambulation. Has been OOB and has participated with PT. Mood slightly improved. Objective: Vitals: (see below) General: No acute distress, laying comfortably in bed. HEENT: Moist mucous membranes. Neck: No JVD or lymphadenopathy Cardiac: RRR, No murmurs Pulm: Clear to auscultation b/l. No wheezing, rhonchi Abd: ND + BS. LUQ/epigastric discomfort. No rebound/guarding/rigidity. Ext: No edema or cyanosis. distal pulses intact. Not suicidal at this time. Labs (see below) Images: CT Abd/pelvis 11/20/16 Small bilateral pleural effusions with mild bibasilar atelectasis/infiltrate. Small hiatal hernia. Right inguinal hernia. Saleh catheter in the urinary bladder. Cluster of small stones in the urinary bladder. No free air, free fluid, or obstruction. Possible thrombus in the right common femoral vein. Recommend ultrasound to evaluate for DVT. U/S LE 11/20/16 FINDINGS: There is no abnormal echogenic material seen within any of the visualized deep venous structures that would suggest acute thrombosis. Coaptation is unremarkable throughout. Doppler interrogation shows an expected response to respiratory variability and augmentation. The color flow images show what appears to be a normal vascular pattern throughout. IMPRESSION: Positive right sided deep vein thrombosis as described above. Assessment/Plan 1. Orthostatic hypotension - 2/2 dehydration, and severe protein-calorie malnutrition. ? related to flomax, which is on hold for now. Depressed over his 's passing. Now his appetite has improved. On IVF. Dietary consult for malnutrition. 2. UTI - Ent. Faecalis and staph simulan - On vanco 3. Left sided abd discomfort - non specific. Lipase wnl. CT abd/pelvis see above. Cont to monitor. + constipation. Optimize bowel regimen. Will start PPI and carafate. Repeat LFT/Lipase. 4. Right common femoral dvt - started on Lovenox. Will send guillermoquis script to pharmacy for pre-auth. 5. Major depression - not complaint with outpt SSRI. Spoke with Dr. Benavides with recommendation to d/c prozac and continue zoloft at 25mg daily. Will see patient given his suicidal ideations (plan to shoot himself with a gun at home) . Sitter one to one. Psych recommending inpatient mental health unit upon medical stabilization. 6. ? clonic activity - evaluated by neuro - likely patient's hypotensive presentation, hold off on AED at this time. EEG negative. 5. H/o CAD - start ASA. On Statin 6. H/o bradycardia - BB on hold 7. BPH - Flomax on hold 2/2 orthostatic hypotension. DVT prophy: Lovenox DNR/DNI. Chloe Wadsworth is POA -[phone]. Daughter does not want pt to go to [facility], but understands that the psychiatrist will re-evaluate when pt is medically cleared. VS,Fishbone, I+O VS, Fishbone, I+O Laboratory Tests 11/22/16 05:40 Red Blood Count 2.68 L, Mean Corpuscular Volume 90.7, Mean Corpuscular Hemoglobin 29.6, Mean Corpuscular Hemoglobin Concent 32.6, Red Cell Distribution Width 15.7 H, Calcium Level 7.4 L Vital Signs Date Time Temp Pulse Resp B/P (MAP) Pulse Ox O2 Delivery O2 Flow Rate FiO2 11/22/16 06:00 99.5 72 18 148/84 (105) 95 Room Air 11/18/16 13:00 1.0 I&O- Last 24 Hours up to 6 AM 11/22/16 06:00 Intake Total 1990 ml Output Total 2950 ml Balance -960 ml STEPHIE SCRUGGS MD Nov 22, 2016 10:48
[2016-11-22] MEDS: MIRALAX *UNIT DOSE* 17GM PACKET PO SCH ×2 (11:09→19:59)
[2016-11-22] MEDS: DOCUSATE SODIUM 100 MG CAP PO SCH ×2 (11:09→20:00)
[2016-11-22] MEDS: PANTOPRAZOLE 40MG INJ (PROTONIX) (C9113) IV SCH (11:09)
[2016-11-22] MEDS: SUCRALFATE 1 GM TAB PO SCH ×3 (11:09→20:00)
[2016-11-22] MEDS ORDERED: MOM 30ML SUSPENSION UDC PO SCH (12:00)
[2016-11-22 12:08] LABS: ALBUMIN 1.6 GM/DL (3.2-5.2); ALBUMIN/GLOBULIN RATIO 0.46 (1.00-1.93); ALKALINE PHOSPHATASE 62 U/L (45-117); ALT/SGPT 30 U/L (12-78); AST/SGOT 28 U/L (15-37); BILIRUBIN,DIRECT < 0.1 MG/DL (0.0-0.2); BILIRUBIN,TOTAL 0.1 MG/DL (0.2-1.0); TOTAL PROTEIN 5.1 GM/DL (6.4-8.2)
[2016-11-22 14:00] VITALS: BP 129/67
[2016-11-22] MEDS: NITROFURANTOIN (MACROBID) 100 MG CAP PO SCH ×2 (14:24→20:00)
--- NOTE | 2016-11-22 18:29 | IPN ---
DATE: 11/22/2016 I received a phone call from the patient, Flex Peña's daughter by the name of Chloe Wadsworth today. She tells me that she is the power of garment patternmaker for her dad. She states that she was aware that the father had suicidal thoughts of shooting himself with a gun but that was when his had and not now. She spoke with Dr. Mills, patients attending today, and clarified the same thing. She verified with the patient that when he told the doctor in the hospital that he was feeling suicidal with plans to shoot himself that he was referring to him having those thoughts in the past after the 's and that he is now denying that he is ever had any thoughts since then of hurting himself. Also the daughter feels that the patient is improving and I did note to the daughter that when I went to see him on consult, I noticed that his appetite was better and he ate all of his lunch and his dessert. Also, the daughter informs me that she feels the patient would benefit from some counseling which I agreed and she said that the patient also feels that would be beneficial and he is willing to do that. In addition the daughter indicated that another sister by the name of Swathi Medeiros has already moved in to the patient's home and that between that sister and Chloe that they plan to provide a lot of supervision for her dad. I then informed her that based on the information she was giving me that I no longer consider him an acute danger to himself and I spoke with the nurse and informed her that the one to one sitter can be discontinued and that from a psychiatric point of view he does not need to go to the psychiatric unit once he is stable but that he would benefit from doing followup with psychiatry and informed the nurse that they should refer the patient for psychiatric treatment at discharge and of course continue him on the antidepressants.
[2016-11-22] MEDS: FLUoxetine 20 MG CAP PO SCH (20:00)
[2016-11-22 22:00] VITALS: BP 143/78
[2016-11-23 05:41] LABS: MEAN CORPUSCULAR HGB CONC 32.6 g/dl (32.0-36.5); MEAN CORPUSCULAR VOLUME 92.2 fl (80.0-96.0); RED CELL DISTRIBUTION WIDTH 15.8 % (11.5-14.5); WHITE BLOOD COUNT 8.2 K/mm3 (4.0-10.0)
[2016-11-23 06:00] VITALS: BP 134/71
[2016-11-23 06:08] LABS: ANION GAP 7 MEQ/L (8-16); BLOOD UREA NITROGEN 5 MG/DL (7-18); CALCIUM LEVEL 7.2 MG/DL (8.8-10.2); CARBON DIOXIDE LEVEL 25 MEQ/L (21-32); CHLORIDE LEVEL 111 MEQ/L (98-107); CREATININE FOR GFR 0.59 MG/DL (0.70-1.30); GLOMERULAR FILTRATION RATE > 60.0 (>35); GLUCOSE, FASTING 78 MG/DL (83-110); MAGNESIUM LEVEL 1.6 MG/DL (1.8-2.4); POTASSIUM SERUM 3.7 MEQ/L (3.5-5.1); SODIUM LEVEL 143 MEQ/L (136-145)
[2016-11-23] MEDS: NS 1,000 ML IV SCH ×2 (07:00→10:55)
[2016-11-23] MEDS: SUCRALFATE 1 GM TAB PO SCH ×4 (07:30→20:51)
[2016-11-23 08:07] LABS: REASON FOR REVIEW COMPREHENSIVE REVIEW
[2016-11-23] MEDS ORDERED: GASTROGRAFIN SOLUTION 30ML PO ONE (08:30)
[2016-11-23] MEDS ORDERED: GASTROGRAFIN SOLUTION 30ML (Q9963) PO ONE ×2 (08:30→09:00)
[2016-11-23] MEDS ORDERED: ISOVUE-370 76% 100ML VIAL (Q9967) As Ordered ONE (10:09)
--- NOTE | 2016-11-23 11:22 | IPNPDOC ---
Text Note Date of Service The patient was seen on 11/23/16. NOTE Subjective: Still has left sided abd pain. Has been OOB and has participated with PT. Objective: Vitals: (see below) General: No acute distress, laying comfortably in bed. HEENT: Moist mucous membranes. Neck: No JVD or lymphadenopathy Cardiac: RRR, No murmurs Pulm: Clear to auscultation b/l. No wheezing, rhonchi Abd: ND + BS. LUQ/epigastric discomfort. No rebound/guarding/rigidity. Ext: No edema or cyanosis. distal pulses intact. Not suicidal at this time. Labs (see below) Images: CT Abd/pelvis 11/20/16 Small bilateral pleural effusions with mild bibasilar atelectasis/infiltrate. Small hiatal hernia. Right inguinal hernia. Saleh catheter in the urinary bladder. Cluster of small stones in the urinary bladder. No free air, free fluid, or obstruction. Possible thrombus in the right common femoral vein. Recommend ultrasound to evaluate for DVT. U/S LE 11/20/16 FINDINGS: There is no abnormal echogenic material seen within any of the visualized deep venous structures that would suggest acute thrombosis. Coaptation is unremarkable throughout. Doppler interrogation shows an expected response to respiratory variability and augmentation. The color flow images show what appears to be a normal vascular pattern throughout. IMPRESSION: Positive right sided deep vein thrombosis as described above. Assessment/Plan 1. Orthostatic hypotension - 2/2 dehydration, and severe protein-calorie malnutrition. ? related to flomax, which is on hold for now. Depressed over his 's passing. Now his appetite has improved. On IVF. Dietary consult for malnutrition. 2. Acute on chronic anemia - normocytic, RACHEL noted. UA with RBCs. FOBT negative. No overt bleeding noted. Peripheral blood smear. Hb 14 in August 2016, now 7.9. Will transfuse 2U PRBC, consent obtained from Chloe Wadsworth. 3. UTI - Ent. Faecalis and staph simulan - On macrobid 4. Left sided abd discomfort - non specific. Lipase wnl. CT abd/pelvis see above. Cont to monitor. + constipation. Optimize bowel regimen. On PPI and carafate. Repeat LFT/Lipase wnl. Repeat CT abd/pelvis. Family states pt fell prior to coming in. Will obtain CT lumbar/thoracic spine/x ray ribs. 5. Right common femoral dvt - started on Lovenox. Will send rita jeffers to pharmacy for pre-auth. 6. Major depression - not complaint with outpt SSRI. Spoke with Dr. Benavides with recommendation to d/c prozac and continue zoloft at 25mg daily. Evaluated by psych. Not a candidate for [facility], and one to one was d/c. Will need outpt psych eval. 7. ? clonic activity - evaluated by neuro - likely patient's hypotensive presentation, hold off on AED at this time. EEG negative. 8. H/o CAD - start ASA. On Statin 9. H/o bradycardia - BB on hold 10. BPH - Flomax on hold 2/2 orthostatic hypotension. DVT prophy: Lovenox DNR/DNI. Chloe Wadsworth is POA -[phone]. Daughter does not want pt to go to [facility], but understands that the psychiatrist will re-evaluate when pt is medically cleared. VS,Fishbone, I+O VS, Fishbone, I+O Laboratory Tests 11/23/16 05:07 Red Blood Count 2.64 L, Mean Corpuscular Volume 92.2, Mean Corpuscular Hemoglobin 30.0, Mean Corpuscular Hemoglobin Concent 32.6, Red Cell Distribution Width 15.8 H, Calcium Level 7.2 L Vital Signs Date Time Temp Pulse Resp B/P (MAP) Pulse Ox O2 Delivery O2 Flow Rate FiO2 11/23/16 06:00 99.5 68 18 134/71 (92) 95 Room Air 11/18/16 13:00 1.0 I&O- Last 24 Hours up to 6 AM 11/23/16 06:00 Intake Total 5080 ml Output Total 2200 ml Balance 2880 ml STEPHIE SCRUGGS MD Nov 23, 2016 11:22
[2016-11-23] MEDS: ENOXAPARIN 80 MG/0.8 ML SYRINGE (J1650) SC SCH ×2 (11:29→19:56)
[2016-11-23] MEDS: PANTOPRAZOLE 40MG INJ (PROTONIX) (C9113) IV SCH (11:29)
[2016-11-23] MEDS: MIRALAX *UNIT DOSE* 17GM PACKET PO SCH ×2 (11:29→20:52)
[2016-11-23] MEDS: SERTRALINE HCL 25 MG TABLET PO SCH (11:30)
[2016-11-23] MEDS: DOCUSATE SODIUM 100 MG CAP PO SCH ×2 (11:30→20:52)
[2016-11-23] MEDS: NITROFURANTOIN (MACROBID) 100 MG CAP PO SCH ×2 (11:30→20:51)
[2016-11-23] MEDS ORDERED: MOM 30ML SUSPENSION UDC PO SCH (12:00)
[2016-11-23] MEDS ORDERED: amLODIPine 5 MG TAB PO ONE (13:00)
--- NOTE | 2016-11-23 13:48 | REP ---
CT THORACIC SPINE WITHOUT CONTRAST: HISTORY: Abdominal pain. There is no acute fracture or subluxation. There is no definite disc bulge or herniation. Facet hypertrophy is present at the T10-11 through T12-L1 levels. There is minimal narrowing of the spinal canal. There is loss of height of several mid and lower thoracic intervertebral discs. Vacuum phenomenon is present at the T11-12 level. These findings are consistent with disc degeneration. Anterior osteophytes are present throughout the thoracic spine. A small area of atelectasis or infiltrate is present in the left lower lobe. A small left pleural effusion is present. IMPRESSION: 1. Degenerative change, as described above. 2. Left lower lobe atelectasis or infiltrate and small left pleural effusion. Signed by Franck Armijo MD 11/23/2016 01:50 P
--- NOTE | 2016-11-23 13:51 | REP ---
BILATERAL RIBS, PA CHEST, SIX VIEWS: HISTORY: Left rib pain. The lungs are clear. The heart is normal in size. The pulmonary vasculature is normal in appearance. The bony structure is intact. IMPRESSION: No acute disease. Signed by Franck Armijo MD 11/23/2016 02:07 P
[2016-11-23 14:00] VITALS: BP 133/70
--- NOTE | 2016-11-23 14:01 | REP ---
CT LUMBAR SPINE WITHOUT CONTRAST: HISTORY: Left abdominal pain. A disc bulge with associated osteophyte formation is present at the L1-2 level. There is hypertrophy of the ligamenta flava and posterior articulating facets. These findings produce moderate central canal stenosis. The L1 nerves exit the neural foramina without compression. A diffuse disc bulge with associated osteophyte formation is present at the L2-3 level. There is hypertrophy of the ligamenta flava and posterior articulating facets. These findings produce severe central canal stenosis. The L2 nerves exit the neural foramina without compression. A diffuse disc bulge with associated osteophyte formation is present at the L3-4 level. There is hypertrophy of the ligamenta flava and posterior articulating facets. The 2 mm of grade 1 spondylolisthesis. These findings produce severe central canal stenosis. There is compression of the L3 nerves in the neural foramina. A diffuse disc bulge with associated osteophyte formation is present at the L4-5 level. There is hypertrophy of the ligamenta flava and posterior articulating facets. These findings produce moderate central canal stenosis. There is compression of the L4 nerves in the neural foramina. A diffuse disc bulge with associated osteophyte formation is present at the L5-S1 level. There is minimal compression of the thecal sac. There is hypertrophy of the posterior articulating facets. There is compression of the L5 nerves in the neural foramina. The L1-2 through L5-S1 intervertebral discs are decreased in height. Vacuum phenomenon is present at the L5-S1 level. These findings are consistent with disc degeneration. There is no subluxation. IMPRESSION: 1. Moderate central canal stenosis at the L1-2 and L4-5 levels secondary to disc bulge, ligamentous and facet hypertrophy and osteophyte formation. There is compression of the L4 nerves in the neural foramina. 2. Severe central canal stenosis at the L2-3 level secondary to disc bulge, ligamentous and facet hypertrophy, and osteophyte formation. 3. Severe central canal stenosis at the L3-4 level secondary to disc bulge, ligamentous and facet hypertrophy, and osteophyte formation, and grade 1 spondylolisthesis. There is compression of the L3 nerves in the neural foramina. 4. Diffuse disc bulge with associated osteophyte formation at the L5-S1 level with minimal thecal sac compression. There is compression of the L5 nerves in the neural foramina. Signed by Franck Armijo MD 11/23/2016 02:06 P
--- NOTE | 2016-11-23 14:21 | REP ---
CT ABDOMEN WITH CONTRAST: HISTORY: Abdominal pain. COMPARISON: 11/20/2016 The liver, gallbladder, pancreas, spleen, adrenal glands, and kidneys are normal in appearance. There is no mass, adenopathy, or free fluid. A small hiatal hernia is present. Small areas of atelectasis or infiltrate are present in the lower lobes. Small bilateral pleural effusions are present. IMPRESSION: 1. Small hiatal hernia. 2. Bibasilar atelectasis or infiltrate and small bilateral pleural effusions. Signed by Franck Armijo MD 11/23/2016 02:25 P
[2016-11-23 15:30] VITALS: BP_SYST 122; BP_SYST 130; BP_SYST 132; BP_DIAS 70; BP_DIAS 72; BP_DIAS 73
[2016-11-23] MEDS: FLUoxetine 20 MG CAP PO SCH (20:51)
[2016-11-23 22:00] VITALS: BP 145/78
[2016-11-24] MEDS ORDERED: zolPIDEM TARTRATE 5 MG TAB PO ONE (00:15)
[2016-11-24] MEDS: ACETAMINOPHEN TAB 650MG DOSE (2X325MG) PO PRN (00:22)
[2016-11-24 06:04] LABS: MAGNESIUM LEVEL 1.9 MG/DL (1.8-2.4)
[2016-11-24 06:21] VITALS: BP_SYST 149; BP_SYST 154; BP_SYST 161; BP_DIAS 81; BP_DIAS 84; BP_DIAS 89
[2016-11-24] MEDS: MIRALAX *UNIT DOSE* 17GM PACKET PO SCH ×2 (07:42→20:07)
[2016-11-24] MEDS: ENOXAPARIN 80 MG/0.8 ML SYRINGE (J1650) SC SCH ×2 (08:02→20:07)
[2016-11-24] MEDS: SERTRALINE HCL 25 MG TABLET PO SCH (08:02)
[2016-11-24] MEDS: NITROFURANTOIN (MACROBID) 100 MG CAP PO SCH (08:02)
[2016-11-24] MEDS: DOCUSATE SODIUM 100 MG CAP PO SCH ×2 (08:02→20:07)
[2016-11-24] MEDS: SUCRALFATE 1 GM TAB PO SCH ×4 (08:02→20:07)
[2016-11-24] MEDS: PANTOPRAZOLE 40MG INJ (PROTONIX) (C9113) IV SCH (08:02)
[2016-11-24 08:04] LABS: ALBUMIN 1.9 GM/DL (3.2-5.2); ALBUMIN/GLOBULIN RATIO 0.58 (1.00-1.93); ALKALINE PHOSPHATASE 80 U/L (45-117); ALT/SGPT 29 U/L (12-78); ANION GAP 7 MEQ/L (8-16); AST/SGOT 30 U/L (15-37); BLOOD UREA NITROGEN 5 MG/DL (7-18); CALCIUM LEVEL 7.7 MG/DL (8.8-10.2); CARBON DIOXIDE LEVEL 27 MEQ/L (21-32); CHLORIDE LEVEL 108 MEQ/L (98-107); CREATININE FOR GFR 0.61 MG/DL (0.70-1.30); GLOMERULAR FILTRATION RATE > 60.0 (>35); GLUCOSE, FASTING 78 MG/DL (83-110); POTASSIUM SERUM 3.8 MEQ/L (3.5-5.1); SODIUM LEVEL 142 MEQ/L (136-145); TOTAL PROTEIN 5.2 GM/DL (6.4-8.2)
[2016-11-24 08:06] LABS: BASO % 0.4 % (0.0-1.0); EOS # 0.3 K/mm3 (0.0-0.50); EOS % 3.6 % (0.0-3.0); LARGE UNSTAINED CELL # 0.2 K/mm3 (0.0-0.4); LARGE UNSTAINED CELL % 2.8 % (0.0-4.0); LYMPH # 2.2 K/mm3 (1.5-4.5); LYMPH % 24.7 % (24.0-44.0); MEAN CORPUSCULAR HEMOGLOBIN 29.8 pg (27.0-33.0); MEAN CORPUSCULAR HGB CONC 32.9 g/dl (32.0-36.5); MEAN CORPUSCULAR VOLUME 90.4 fl (80.0-96.0); MONO # 0.6 K/mm3 (0.0-0.8); MONO % 7.7 % (0.0-5.0); NEUTROPHILS # 4.8 K/mm3 (1.8-7.7); NEUTROPHILS % 60.9 % (36.0-66.0); PLATELET COUNT, AUTOMATED 222 k/mm3 (150-450); RED CELL DISTRIBUTION WIDTH 16.3 % (11.5-14.5); WHITE BLOOD COUNT 7.8 K/mm3 (4.0-10.0)
[2016-11-24 08:28] LABS: BILIRUBIN,TOTAL 0.3 MG/DL (0.2-1.0)
[2016-11-24] MEDS ORDERED: LevoFLOXacin 500 MG TABLET PO ONE (12:00)
[2016-11-24] MEDS: guaiFENesin ER 600 MG TAB PO SCH ×2 (12:31→20:07)
--- NOTE | 2016-11-24 13:22 | IPNPDOC ---
Text Note Date of Service The patient was seen on 11/24/16. NOTE Subjective: Pt now states his abd pain is actually starting in his left thoracic region, radiating to his stomach, and it has improved. Has been OOB and has participated with PT. Objective: Vitals: (see below) General: No acute distress, laying comfortably in bed. HEENT: Moist mucous membranes. Neck: No JVD or lymphadenopathy Cardiac: RRR, No murmurs Pulm: Clear to auscultation b/l. No wheezing, rhonchi Abd: ND + BS. LUQ discomfort. No rebound/guarding/rigidity. Back - Tenderness at the thoracic region radiating to the LUQ. Ext: No edema or cyanosis. distal pulses intact. 5/5 strength BUE/BLE. DTR 2+ BLE. Sensation intact. Not suicidal at this time. Labs (see below) Images: CT Abd/pelvis 11/20/16 Small bilateral pleural effusions with mild bibasilar atelectasis/infiltrate. Small hiatal hernia. Right inguinal hernia. Saleh catheter in the urinary bladder. Cluster of small stones in the urinary bladder. No free air, free fluid, or obstruction. Possible thrombus in the right common femoral vein. Recommend ultrasound to evaluate for DVT. U/S LE 11/20/16 FINDINGS: There is no abnormal echogenic material seen within any of the visualized deep venous structures that would suggest acute thrombosis. Coaptation is unremarkable throughout. Doppler interrogation shows an expected response to respiratory variability and augmentation. The color flow images show what appears to be a normal vascular pattern throughout. IMPRESSION: Positive right sided deep vein thrombosis as described above. Assessment/Plan 1. Orthostatic hypotension - resolved. 2/2 dehydration, and severe protein- calorie malnutrition. ? related to flomax, which is on hold for now. Depressed over his 's passing. Now his appetite has improved. s/p IVF. Dietary consult for malnutrition. 2. Acute on chronic anemia - normocytic, RACHEL noted. UA with RBCs. FOBT negative. No overt bleeding noted. Peripheral blood smear. Hb 14 in August 2016, now 7.9. s/p 2U PRBC 11/23/16, consent obtained from Chloe Wadsworth. 3 LLL PNA - started on levaquin. Recent cough. On mucinex. 4. Spinal stenosis - will consult neurosurgery. CT Lumbar/thoracic spine (see above). MRI thoracic/lumbar spine pending. Strength/sensation preserved. Participating with PT. Spoke with Chloe Wadsworth who prefers PT/Pain control before entertaining surgery. 5. UTI - Ent. Faecalis and staph simulan - On levaquin 6. Left sided abd discomfort - non specific. Lipase wnl. CT abd/pelvis see above. Cont to monitor. + constipation. Optimize bowel regimen. On PPI and carafate. Repeat LFT/Lipase wnl. Repeat CT abd/pelvis. Family states pt fell prior to coming in. Will obtain CT lumbar/thoracic spine/x ray ribs. 7. Right common femoral dvt - started on Lovenox. Will send eliquis script to pharmacy for pre-auth. 8. Major depression - not complaint with outpt SSRI. Spoke with Dr. Benavides with recommendation to d/c prozac and continue zoloft at 25mg daily. Evaluated by psych. Not a candidate for [facility], and one to one was d/c. Will need outpt psych eval. 9. ? clonic activity - evaluated by neuro - likely patient's hypotensive presentation, hold off on AED at this time. EEG negative. 10. H/o CAD - start ASA. On Statin 11. H/o bradycardia - BB on hold 12. BPH - Flomax on hold 2/2 orthostatic hypotension. DVT prophy: Lovenox DNR/DNI. Chloe Wadsworth is POA -[phone]. Daughter does not want pt to [facility], but understands that the psychiatrist will re-evaluate when pt is medically cleared. VS,Ruby, I+O VS, Ruby, I+O Laboratory Tests 11/24/16 05:20 Red Blood Count 3.47 L, Mean Corpuscular Volume 90.4, Mean Corpuscular Hemoglobin 29.8, Mean Corpuscular Hemoglobin Concent 32.9, Red Cell Distribution Width 16.3 H, Neutrophils (%) (Auto) 60.9, Lymphocytes (%) (Auto) 24.7, Monocytes (%) (Auto) 7.7 H, Eosinophils (%) (Auto) 3.6 H, Basophils (%) ( Auto) 0.4, Neutrophils # (Auto) 4.8, Lymphocytes # (Auto) 2.2, Monocytes # (Auto ) 0.6, Eosinophils # (Auto) 0.3, Basophils # (Auto) 0.0, Calcium Level 7.7 L, Aspartate Amino Transf (AST/SGOT) 30, Alanine Aminotransferase (ALT/SGPT) 29, Alkaline Phosphatase 80, Total Bilirubin 0.3 #, Total Protein 5.2 L, Albumin 1.9 L Vital Signs Date Time Temp Pulse Resp B/P (MAP) Pulse Ox O2 Delivery O2 Flow Rate FiO2 11/24/16 09:55 Room Air 11/24/16 08:03 81 167/81 11/24/16 06:21 99.4 17 96 11/18/16 13:00 1.0 I&O- Last 24 Hours up to 6 AM 11/24/16 06:00 Intake Total 2465 ml Output Total 3225 ml Balance -760 ml STEPHIE SCRUGGS MD Nov 24, 2016 13:21
[2016-11-24 14:55] VITALS: BP_SYST 157; BP_SYST 159; BP_SYST 162; BP_DIAS 83; BP_DIAS 87; BP_DIAS 88
[2016-11-24] MEDS: FLUoxetine 20 MG CAP PO SCH (20:07)
[2016-11-24] MEDS: zolPIDEM TARTRATE 5 MG TAB PO SCH (20:07)
[2016-11-24 22:00] VITALS: BP 145/84
[2016-11-25] MEDS: LevoFLOXacin 500 MG TABLET PO SCH (05:50)
[2016-11-25 06:00] VITALS: BP_SYST 130; BP_SYST 158; BP_SYST 162; BP_DIAS 86; BP_DIAS 88
[2016-11-25 06:04] LABS: BASO % 0.3 % (0.0-1.0); EOS # 0.2 K/mm3 (0.0-0.50); EOS % 2.3 % (0.0-3.0); LARGE UNSTAINED CELL # 0.3 K/mm3 (0.0-0.4); LARGE UNSTAINED CELL % 2.9 % (0.0-4.0); LYMPH % 19.7 % (24.0-44.0); MEAN CORPUSCULAR HEMOGLOBIN 30.2 pg (27.0-33.0); MEAN CORPUSCULAR HGB CONC 33.7 g/dl (32.0-36.5); MEAN CORPUSCULAR VOLUME 89.6 fl (80.0-96.0); MONO # 0.6 K/mm3 (0.0-0.8); NEUTROPHILS # 5.9 K/mm3 (1.8-7.7); NEUTROPHILS % 67.8 % (36.0-66.0); PLATELET COUNT, AUTOMATED 227 k/mm3 (150-450); RED CELL DISTRIBUTION WIDTH 16.2 % (11.5-14.5); WHITE BLOOD COUNT 8.8 K/mm3 (4.0-10.0)
[2016-11-25 06:27] LABS: ALBUMIN 1.9 GM/DL (3.2-5.2); ALBUMIN/GLOBULIN RATIO 0.46 (1.00-1.93); ALKALINE PHOSPHATASE 82 U/L (45-117); ALT/SGPT 36 U/L (12-78); ANION GAP 5 MEQ/L (8-16); AST/SGOT 40 U/L (15-37); BILIRUBIN,TOTAL 0.3 MG/DL (0.2-1.0); BLOOD UREA NITROGEN 6 MG/DL (7-18); CALCIUM LEVEL 7.8 MG/DL (8.8-10.2); CARBON DIOXIDE LEVEL 29 MEQ/L (21-32); CHLORIDE LEVEL 107 MEQ/L (98-107); CREATININE FOR GFR 0.62 MG/DL (0.70-1.30); GLOMERULAR FILTRATION RATE > 60.0 (>35); GLUCOSE, FASTING 82 MG/DL (83-110); MAGNESIUM LEVEL 1.7 MG/DL (1.8-2.4); POTASSIUM SERUM 3.5 MEQ/L (3.5-5.1); SODIUM LEVEL 141 MEQ/L (136-145)
[2016-11-25] MEDS ORDERED: POTASSIUM CHLORIDE 10 MEQ SR TABLET PO ONE (08:15)
[2016-11-25] MEDS: MIRALAX *UNIT DOSE* 17GM PACKET PO SCH ×2 (09:00→20:11)
[2016-11-25] MEDS ORDERED: MAG SULF 1GM/100ML (MAG RUN) 1 GM in APPROPRIATE DILUENT 1 EA IV ONE (09:00)
[2016-11-25] MEDS: guaiFENesin ER 600 MG TAB PO SCH ×2 (09:23→20:11)
[2016-11-25] MEDS: PANTOPRAZOLE 40MG INJ (PROTONIX) (C9113) IV SCH (09:23)
[2016-11-25] MEDS: SERTRALINE HCL 25 MG TABLET PO SCH (09:23)
[2016-11-25] MEDS: SUCRALFATE 1 GM TAB PO SCH ×4 (09:24→20:11)
[2016-11-25] MEDS: ENOXAPARIN 80 MG/0.8 ML SYRINGE (J1650) SC SCH ×2 (09:24→20:12)
[2016-11-25] MEDS: DOCUSATE SODIUM 100 MG CAP PO SCH ×2 (09:24→20:11)
--- NOTE | 2016-11-25 09:27 | REP ---
MRI LUMBAR SPINE WITHOUT CONTRAST: HISTORY: Spinal stenosis. COMPARISON: CT 11/23/2016. A disc bulge with associated osteophyte formation is present at the L1-2 level. There is hypertrophy of the ligamenta flava and posterior articulating facets. These findings produce moderate central canal stenosis. The L1 nerves exit the neural foramina without compression. A diffuse disc bulge with associated osteophyte formation is present at the L2-3 level. There is hypertrophy of the ligamenta flava and posterior articulating facets. These findings produce severe central canal stenosis. The L2 nerves exit the neural foramina without compression. A diffuse disc bulge with associated osteophyte formation is present at the L3-4 level. There is hypertrophy of the ligamenta flava and posterior articulating facets. There are 2 mm of grade 1 spondylolisthesis of L3 on 4. These findings produce severe central canal stenosis. There is compression of the L3 nerves in the neural foramina. A diffuse disc bulge with associated osteophyte formation is present at the L4-5 level. There is hypertrophy of the ligamenta flava and posterior articulating facets. These findings produce moderate central canal stenosis. There is compression of the L4 nerves in the neural foramina. A diffuse disc bulge with associated osteophyte formation is present at the L5-S1 level. There is minimal compression of the thecal sac. There is hypertrophy of the posterior articulating facets. There is compression of the L5 nerves in the neural foramina. The conus medullaris is normal in appearance terminating at the level of the T12-L1 intervertebral disc. A hemangioma is present in the L5 vertebral body. Increased signal intensity on T2-weighted images is present in the end plates of the L1-L3, L5 and S1 vertebral bodies. This represents degenerative change. IMPRESSION: 1. Moderate central canal stenosis at the L1-2 and L4-5 levels secondary to disc bulge, ligamentous and facet hypertrophy. There is compression of the L4 nerves in the neural foramina. 2. Severe central canal stenosis at the L2-3 level secondary to disc bulge, ligamentous and facet hypertrophy and osteophyte formation . 3. Severe central canal stenosis at the L3-4 level secondary to disc bulge, ligamentous and facet hypertrophy and osteophyte formation and grade 1 spondylolisthesis. There is compression of the L3 nerves in the neural foramina. 4. Diffuse disc bulge with associated osteophyte formation at the L5-S1 level with minimal thecal sac compression. There is compression of the L5 nerves in the neural foramina. Signed by Franck Armijo MD 11/25/2016 09:36 A
--- NOTE | 2016-11-25 09:30 | REP ---
MR THORACIC SPINE WITHOUT CONTRAST: HISTORY: Spinal stenosis. A disc bugle is present at the T1-2 level. There is minimal effacement of the thecal sac without spinal cord compression. The T1 neural foramina are patent. A disc bulge is present at the T3-4 level. There is minimal effacement of the thecal sac without spinal cord compression. The T3 neural foramina are patent. A disc bulge is present at the T6-7 level. There is minimal effacement of the thecal sac without spinal cord compression. The T6 neural foramina are patent. A disc bulge is present at the T8-9 level. There is minimal effacement of the thecal sac without spinal cord compression. The T8 neural foramina are patent. A small left paracentral disc protrusion is present at the T9-10 level. There is minimal effacement of the thecal sac without spinal cord compression. The T9 neural foramina are patent. A disc bulge is present at the T12-L1 level. There is minimal effacement of the thecal sac without spinal cord compression. The T12 neural foramina are patent. There is no other disc bulge or herniation. The remaining neural foramina are patent. The spinal cord is normal in signal intensity. There is loss of height of several mid and lower thoracic intervertebral discs. Areas of increased signal intensity on T2-weighted images are present in the endplates of several mid and lower thoracic vertebral bodies. This represents degenerative change. IMPRESSION: 1. Disc bulges at the T1-2, T3-4, T6-7, T8-9, and T12-L1 levels without spinal cord compression. 2. Small left paracentral disc protrusion at the T9-10 level without spinal cord compression. Signed by Franck Armijo MD 11/25/2016 09:32 A
--- NOTE | 2016-11-25 11:20 | IPNPDOC ---
Text Note Date of Service The patient was seen on 11/25/16. NOTE Subjective: Pt now states his abd pain is actually starting in his left thoracic region, radiating to his stomach, and it has improved. Has been OOB and has participated with PT. Objective: Vitals: (see below) General: No acute distress, laying comfortably in bed. HEENT: Moist mucous membranes. Neck: No JVD or lymphadenopathy Cardiac: RRR, No murmurs Pulm: Clear to auscultation b/l. No wheezing, rhonchi Abd: ND + BS. LUQ discomfort. No rebound/guarding/rigidity. Back - Tenderness at the thoracic region radiating to the LUQ. Ext: No edema or cyanosis. distal pulses intact. 10/25 strength BUE/BLE. DTR 2+ BLE. Sensation intact. Not suicidal at this time. Labs (see below) Images: CT Abd/pelvis 11/20/16 Small bilateral pleural effusions with mild bibasilar atelectasis/infiltrate. Small hiatal hernia. Right inguinal hernia. Saleh catheter in the urinary bladder. Cluster of small stones in the urinary bladder. No free air, free fluid, or obstruction. Possible thrombus in the right common femoral vein. Recommend ultrasound to evaluate for DVT. U/S LE 11/20/16 FINDINGS: There is no abnormal echogenic material seen within any of the visualized deep venous structures that would suggest acute thrombosis. Coaptation is unremarkable throughout. Doppler interrogation shows an expected response to respiratory variability and augmentation. The color flow images show what appears to be a normal vascular pattern throughout. IMPRESSION: Positive right sided deep vein thrombosis as described above. Assessment/Plan 1. Orthostatic hypotension - improved. 2/2 dehydration, and severe protein- calorie malnutrition. ? related to flomax, which is on hold for now. Depressed over his 's passing. Now his appetite has improved. s/p IVF. Dietary consult for malnutrition. 2. Acute on chronic anemia - normocytic, RACHEL noted. UA with RBCs. FOBT negative. No overt bleeding noted. Peripheral blood smear. Hb 14 in August 2016, now 7.9. s/p 2U PRBC 11/23/16, consent obtained from Chloe Wadsworth. 3 LLL PNA - started on levaquin. Recent cough. On mucinex. Sputum cx. Afebile. 4. Spinal stenosis - will consult neurosurgery. CT Lumbar/thoracic spine (see above). MRI thoracic/lumbar spine pending. Strength/sensation preserved. Participating with PT. Spoke with Chloe Wadsworth who prefers PT/Pain control before entertaining surgery. 5. UTI - Ent. Faecalis and staph simulan - On levaquin 6. Left sided abd discomfort - non specific. Lipase wnl. CT abd/pelvis see above. Cont to monitor. + constipation. Optimize bowel regimen. On PPI and carafate. Repeat LFT/Lipase wnl. Repeat CT abd/pelvis. Family states pt fell prior to coming in. Will obtain CT lumbar/thoracic spine/x ray ribs. 7. Right common femoral dvt - started on Lovenox. Will send eliquis script to pharmacy for pre-auth. 8. Major depression - not complaint with outpt SSRI. Spoke with Dr. Benavides with recommendation to d/c prozac and continue zoloft at 25mg daily. Evaluated by psych. Not a candidate for [facility], and one to one was d/c. Will need outpt psych eval. 9. ? clonic activity - evaluated by neuro - likely patient's hypotensive presentation, hold off on AED at this time. EEG negative. 10. H/o CAD - start ASA. On Statin 11. H/o bradycardia - BB on hold 12. BPH - Flomax on hold 2/2 orthostatic hypotension. DVT prophy: Lovenox DNR/DNI. Chloe Ananth is POA -[phone]. Dr. Benavides has evaluated pt and believes he does not meet criteria for [facility] admission. VS,Jennifere, I+O VS, Ruby, I+O Laboratory Tests 11/25/16 05:39 Red Blood Count 3.72 L, Mean Corpuscular Volume 89.6, Mean Corpuscular Hemoglobin 30.2, Mean Corpuscular Hemoglobin Concent 33.7, Red Cell Distribution Width 16.2 H, Neutrophils (%) (Auto) 67.8 H, Lymphocytes (%) (Auto ) 19.7 L, Monocytes (%) (Auto) 7.0 H, Eosinophils (%) (Auto) 2.3, Basophils (%) (Auto) 0.3, Neutrophils # (Auto) 5.9, Lymphocytes # (Auto) 2.0, Monocytes # ( Auto) 0.6, Eosinophils # (Auto) 0.2, Basophils # (Auto) 0.0, Calcium Level 7.8 L , Aspartate Amino Transf (AST/SGOT) 40 H, Alanine Aminotransferase (ALT/SGPT) 36 , Alkaline Phosphatase 82, Total Bilirubin 0.3, Total Protein 6.0 L, Albumin 1.9 L Vital Signs Date Time Temp Pulse Resp B/P (MAP) Pulse Ox O2 Delivery O2 Flow Rate FiO2 11/25/16 06:00 66 162/88 (112) 69 158/86 (110) 80 130/88 (102) 11/24/16 22:00 98.6 17 96 Room Air I&O- Last 24 Hours up to 6 AM 11/25/16 06:00 Intake Total 1080 ml Output Total 2575 ml Balance -1495 ml STEPHIE SCRUGGS MD Nov 25, 2016 11:20
[2016-11-25 14:00] VITALS: BP 145/85
--- NOTE | 2016-11-25 15:13 | CR ---
DATE OF CONSULTATION: 11/25/2016 CONSULTATION REPORT FOR: [place] MD REASON FOR CONSULTATION: Spinal stenosis. HISTORY OF PRESENT ILLNESS: Mr. Peña is a pleasant 81-year-old right-handed gentleman who was admitted to the hospital for possible seizures. Subsequently, he complained of lower thoracic spine pain on the left radiating into his abdomen. Imaging of his thoracic and lumbar spine was obtained by [facility] which showed lumbar stenosis and neurosurgery was consulted for his lumbar stenosis. The patient states that, "I have had back pain my whole life." He denies any leg or foot pain. He denies any leg or foot numbness or tingling. He denies any bowel or bladder dysfunction. He denies any pain with coughing or sneezing. He states that he has had lower thoracic spine pain radiating to his left ribs and upper abdomen for the past four months. He states, at this point in time, it is not bothering him. The patient does not report any modifying factors of anything that seems to aggravate or relieve his pain. He describes his pain as occasionally a sharp pain, sometimes aching, sometimes burning. He gives no history of neurogenic claudication. He uses a walker to walk and, in fact, he states that walking does not bother him. PAST MEDICAL HISTORY: Significant for: 1. Hypertension. 2. Hyperlipidemia. 3. Coronary artery disease. 4. Benign prostatic hypertrophy (BPH). 5. Transient ischemic attack (TIA). PAST SURGICAL HISTORY: Significant for: 1. Bilateral cataract surgery. 2. Cystoscope with left ureteral stenting. 3. Shunt in bilateral eyes for glaucoma. 4. Transurethral resection of prostate. 5. Left shoulder surgery. 6. Hernia repair. HOME MEDICATIONS: Carvedilol, losartan, fluoxetine, simvastatin, Flomax, doxazosin, donepezil. ALLERGIES: He is allergic to PENICILLIN. SOCIAL HISTORY: He reports a history of smoking, quit 20 years ago. Denies any alcohol or drug use. FAMILY HISTORY: Noncontributory. REVIEW OF SYSTEMS: Remarkable for history of present illness (HPI). PHYSICAL EXAMINATION: VITAL SIGNS: Blood pressure 145/84, respiratory rate of 17, heart rate is 68, SPO2 is 96% on room air. Other vital signs are in the electronic medical record (EMR). He is in no acute distress, well-developed, thin gentleman. HEENT: Head is normocephalic, atraumatic. Pupils are equal, round and reactive to light. Extraocular movements are full and conjugate. RESPIRATORY: No tachyrhythmia, good expansion of chest. CARDIAC: Regular rate and rhythm. NEUROLOGIC: Speech is clear and fluent. Smile is symmetrical. Tongue is midline. He has good shoulder shrug bilaterally. Hearing is grossly intact to finger rub bilaterally. No pronator drift. He has good strength in his upper and lower extremities. 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 Quads, hamstring, gastrocs, anterior tibialis are at 5/5. Toes are downgoing. Reflexes: Biceps, triceps bilaterally at 2 symmetrical. No pathologic reflexes. Knees are bilaterally at 2+. Ankles are bilaterally at 1+. Straight leg raise negative on the left, negative on the right. He does report back pain on palpation, lower thoracic spine, paraspinous muscles on the left. Gait and balance not tested. Birch's sign is negative bilaterally. He is alert and oriented times three. DIAGNOSTIC STUDIES: MRI of the lumbar spine was reviewed with multilevel degenerative disc disease, disc bulges L1-2, L2-3 with posterior ligamentous and facette hypertrophic changes causing mild to slightly moderate stenosis at L3-4 secondary to ligamentous facet hypertrophic changes, bulging disc. He has severe central stenosis, lumbar facet arthropathy throughout his lumbar spine. MRI of the thoracic spine was also reviewed which shows degenerative disc disease, disc bulges T8-9, T11-12, facet arthropathy, central canal is patent, no spinal cord compression. NEUROSURGICAL ASSESSMENT: Chronic low back pain, lumbar stenosis without neurogenic claudication, thoracic back pain, degenerative disc disease. RECOMMENDATIONS: The patient states specifically that he does not want to have any surgical intervention and would like to try physical therapy. This is very reasonable. He does not complain of any radicular symptoms and has no symptoms of neurogenic claudication. He has had chronic back pain for years. If physical therapy fails, he could try pain clinic injections. No neurosurgical intervention is indicated at this time for his low back pain. I did discuss this with Dr. Mills and advised him that no neurosurgical intervention was recommended at this time. I also have reviewed and discussed the case with Dr. Wild and he is in agreement with the aforementioned.
[2016-11-25] MEDS: ACETAMINOPHEN TAB 650MG DOSE (2X325MG) PO PRN (15:41)
[2016-11-25 18:29] VITALS: BP_SYST 160; BP_SYST 161; BP_SYST 168; BP_DIAS 83; BP_DIAS 89; BP_DIAS 94
[2016-11-25] MEDS: FLUoxetine 20 MG CAP PO SCH (20:11)
[2016-11-25] MEDS: zolPIDEM TARTRATE 5 MG TAB PO SCH (20:11)
[2016-11-25 22:00] VITALS: BP 154/79
[2016-11-26 06:00] VITALS: BP_SYST 149; BP_SYST 151; BP_SYST 156; BP_SYST 165; BP_DIAS 80; BP_DIAS 88; BP_DIAS 90; BP_DIAS 92
[2016-11-26] MEDS: LevoFLOXacin 500 MG TABLET PO SCH (06:03)
[2016-11-26 06:54] LABS: BASO % 0.5 % (0.0-1.0); EOS # 0.2 K/mm3 (0.0-0.50); EOS % 2.8 % (0.0-3.0); LARGE UNSTAINED CELL # 0.2 K/mm3 (0.0-0.4); LARGE UNSTAINED CELL % 2.9 % (0.0-4.0); LYMPH % 24.4 % (24.0-44.0); MEAN CORPUSCULAR HEMOGLOBIN 30.4 pg (27.0-33.0); MEAN CORPUSCULAR HGB CONC 32.8 g/dl (32.0-36.5); MEAN CORPUSCULAR VOLUME 92.9 fl (80.0-96.0); MONO # 0.6 K/mm3 (0.0-0.8); MONO % 7.5 % (0.0-5.0); NEUTROPHILS # 4.6 K/mm3 (1.8-7.7); NEUTROPHILS % 61.9 % (36.0-66.0); PLATELET COUNT, AUTOMATED 247 k/mm3 (150-450); RED CELL DISTRIBUTION WIDTH 16.4 % (11.5-14.5); WHITE BLOOD COUNT 7.5 K/mm3 (4.0-10.0)
[2016-11-26 07:13] LABS: ALBUMIN/GLOBULIN RATIO 0.44 (1.00-1.93); ALKALINE PHOSPHATASE 78 U/L (45-117); ALT/SGPT 42 U/L (12-78); ANION GAP 8 MEQ/L (8-16); AST/SGOT 39 U/L (15-37); BILIRUBIN,TOTAL 0.3 MG/DL (0.2-1.0); BLOOD UREA NITROGEN 10 MG/DL (7-18); CALCIUM LEVEL 7.9 MG/DL (8.8-10.2); CARBON DIOXIDE LEVEL 25 MEQ/L (21-32); CHLORIDE LEVEL 106 MEQ/L (98-107); CREATININE FOR GFR 0.75 MG/DL (0.70-1.30); GLOMERULAR FILTRATION RATE > 60.0 (>35); GLUCOSE, FASTING 84 MG/DL (83-110); PHOSPHORUS LEVEL 2.5 MG/DL (2.5-4.9); POTASSIUM SERUM 3.9 MEQ/L (3.5-5.1); SODIUM LEVEL 139 MEQ/L (136-145); TOTAL PROTEIN 6.5 GM/DL (6.4-8.2)
--- NOTE | 2016-11-26 08:39 | CR.PDOC ---
[facility] Pain Clinic Consultation General Date of Consultation: 11/25/16 Consultation Report For: STEPHIE SCRUGGS MD Chief Complaint The patient is a 81-year-old male admitted with a reason for visit of Seizure. Pain management is asked to see the patient regarding history of chronic back pain. History of Present Illness Flex Peña is an 81-year-old white male who was admitted on 11/16/2016 following an episode of what appeared to be seizure activity. Subsequently, he was found to have some issues with hypotension and orthostatic hypotension, urinary tract infection femoral DVT, and respiratory issues including possible pneumonia. Patient was seen and examined at his bedside. He reports that he has had low back pain times many, many years. States that he uses his walker. He states that the current medication with that. He is receiving that his Tylenol is effective in keeping his pain under control. He describes the pain as an ache. He denies any pain radiating into the legs. Denies any numbness or tingling into the legs Home Medications Scheduled (Geritol Complete) 1 Tab Tab, 1 TAB PO DAILY, (Reported) Apixaban Base (Eliquis) 5 Mg Tab, 5 MG PO BID Carvedilol (Carvedilol) 6.25 Mg Tab, 6.25 MG PO BID, (Reported) Donepezil Hcl (Donepezil HCl) 5 Mg Tab, 5 MG PO DAILY, (Reported) Doxazosin Mesylate (Doxazosin) 2 Mg Tab, 2 MG PO DAILY, (Reported) Fluoxetine Hcl (Fluoxetine) 20 Mg Cap, 20 MG PO QHS, (Reported) Losartan Potassium (Losartan Potassium) 50 Mg Tab, 50 MG PO QHS, (Reported) Simvastatin (Simvastatin) 20 Mg Tab, 20 MG PO QHS, (Reported) Tamsulosin Hydrochloride (Flomax) 0.4 Mg Cap, 0.4 MG PO QHS, (Reported) Allergies Coded Allergies: Penicillins (Verified Allergy, Severe, 08/14/16) Penicillins Cross Reactors (Verified Allergy, Severe, 08/14/16) Past Medical History Medical History Includes mild dementia, some degree of depression, being followed by Dr. Benavides and recent grieving secondary to the loss of his 6 months ago. Has history of urinary retention and is followed by urology. Does have chronic Saleh catheter in place.Other health issues include hypertension, coronary artery disease, history of TIA, history of hyperlipidemia Family History Significant Family History: Other Social History Social History Denies recent tobacco use, alcohol, or illicit substance abuse. Is dealing with the loss of his 6 months ago. Has attentive family. Has daughter who is power of attorney at law. Review of Systems Subjective Constitutional: Reports: weakness, fatigue HEENT: Denies: head aches, vision problems, hearing problems Skin: Denies: lesions, rash, breakdown Pulmonary: Reports: shortness of breath Cardiovascular: Denies: chest pain, edema, palpitations Gastrointestinal: Reports: constipation, Denies: loss of bowel control Genitourinary: Reports: other (Saleh catheter in place. 4. Chronic urinary retention. Patient denies any prostate issues, but does note he follows with urology) Hematologic: Reports: anemia Musculoskeletal: Reports: leg pain, muscle pain, spasms, muscle stiffness, midthoracic pain Neurological: Reports: seizures (recent seizure felt to be secondary to hypotension), weakness (of the lower extremities), Denies: headache Psych: Reports: other (admits to some sadness) Physical Examination Physical Examination Vital Signs/I&O Vital Signs Date Time Temp Pulse Resp B/P (MAP) Pulse Ox O2 Delivery O2 Flow Rate FiO2 11/26/16 06:00 67 156/88 (110) 69 151/90 (110) 74 149/92 (111) 11/26/16 06:00 98.5 18 97 Room Air I&O- Last 24 Hours up to 6 AM 11/26/16 06:00 Intake Total 1560 ml Output Total 1425 ml Balance 135 ml General Exam: Positive: alert, attentive, no acute distress, oriented times three, other (has some difficulty being clearly understood) ENT EXAM: Positive: normocephalic, mucous membr. moist/pink Neck Exam: Positive: Limited range of motion Chest Exam: Positive: Decreased breath sounds (at bases. No wheezing, rales or rhonchi) Heart Exam: Positive: Regular rate and rhythm, Normal S1, S2, Negative: Murmurs, Rubs Abdominal Exam: Positive: Normal bowel sounds, Soft, Nondistended Extremity Exam: Negative: Edema Skin Exam: Positive: Warm, Dry, Negative: Rashes, Lesions Neuro Exam: Positive: Other Psych Exam: Positive: Alert and oriented x 3 Musculoskeletal Able to sit up without significant difficulty. Able to roll to the side without difficulty. Minimal tenderness noted with palpation over the lumbar spinous processes or across the lumbosacral axis. No specific tenderness elicited with palpation at the bilateral sacroiliac joints. No focal weakness noted with quad flexion. Laboratory Data Labs 24H Laboratory Tests 2 11/26/16 06:22: White Blood Count 7.5, Red Blood Count 3.91L, Hemoglobin 11.9L, Hematocrit 36.3L , Mean Corpuscular Volume 92.9, Mean Corpuscular Hemoglobin 30.4, Mean Corpuscular Hemoglobin Concent 32.8, Red Cell Distribution Width 16.4H, Platelet Count 247, Neutrophils (%) (Auto) 61.9, Lymphocytes (%) (Auto) 24.4, Monocytes (%) (Auto) 7.5H, Eosinophils (%) (Auto) 2.8, Basophils (%) (Auto) 0.5 , Neutrophils # (Auto) 4.6, Lymphocytes # (Auto) 2.0, Monocytes # (Auto) 0.6, Eosinophils # (Auto) 0.2, Basophils # (Auto) 0.0, Large Unclassified Cells % 2.9 , Large Unclassified Cells # 0.2, Anion Gap 8, Glomerular Filtration Rate > 60.0 , Blood Urea Nitrogen 10#, Creatinine 0.75, Sodium Level 139, Potassium Level 3.9, Chloride Level 106, Carbon Dioxide Level 25, Calcium Level 7.9L, Phosphorus Level 2.5, Aspartate Amino Transf (AST/SGOT) 39H, Alanine Aminotransferase (ALT/SGPT) 42, Alkaline Phosphatase 78, Total Bilirubin 0.3, Total Protein 6.5, Albumin 2.0L, Albumin/Globulin Ratio 0.44L CBC/BMP Laboratory Tests 11/26/16 06:22 Red Blood Count 3.91 L, Mean Corpuscular Volume 92.9, Mean Corpuscular Hemoglobin 30.4, Mean Corpuscular Hemoglobin Concent 32.8, Red Cell Distribution Width 16.4 H, Neutrophils (%) (Auto) 61.9, Lymphocytes (%) (Auto) 24.4, Monocytes (%) (Auto) 7.5 H, Eosinophils (%) (Auto) 2.8, Basophils (%) ( Auto) 0.5, Neutrophils # (Auto) 4.6, Lymphocytes # (Auto) 2.0, Monocytes # (Auto ) 0.6, Eosinophils # (Auto) 0.2, Basophils # (Auto) 0.0, Calcium Level 7.9 L, Phosphorus Level 2.5, Aspartate Amino Transf (AST/SGOT) 39 H, Alanine Aminotransferase (ALT/SGPT) 42, Alkaline Phosphatase 78, Total Bilirubin 0.3, Total Protein 6.5, Albumin 2.0 L Microbiology Microbiology 11/16/16 Blood Culture - Final, Complete NO GROWTH AFTER 5 DAYS 11/16/16 Blood Culture - Final, Complete NO GROWTH AFTER 5 DAYS 11/20/16 Stool Occult Blood (SUJIT) - Final, Complete 11/24/16 Gram Stain - Final, Resulted 11/24/16 Sputum Culture, Resulted Pending 11/16/16 Urine Culture - Final, Complete Enterococcus Faecalis Staphylococcus Simulans Assessment MRI of lumbar spine was reviewed. 1. Chronic low back pain, long-standing duration. 2. Lumbar spinal stenosis. 3. Lumbar facet arthropathy. 4. Multiple medical problems which include urinary tract infection, currently on antibiotics, upper respiratory infection, possible pneumonia, DVT, right lower extremity. Currently on Lovenox and to be switched to L Cortez Recommendation and Plan At this time on. I did review the evaluation and recommendations as per Eliel cordova PA-C, from neurosurgery. Currently due to patient's significant medical issues, he would not be a Candidate for interventional treatment. Would recommend physical therapy, which patient states is helping. I also would not make any changes in his pain medications. He states that his Tylenol, which is already being used is helpful. He will continue to follow with Dr. Benavides. After discharge. Should his primary care provider feel that it would be helpful for him to return to the pain Center. We would certainly be glad to evaluate then for any possible interventional treatment. Thank you , for allowing us to participate in the care of your patient, Flex Peña. Should you have any questions we will be glad to discuss this with you at any time please contact us here at the pain center at [phone]. Whit Saleh Nov 26, 2016 08:39
[2016-11-26] MEDS: MIRALAX *UNIT DOSE* 17GM PACKET PO SCH ×2 (09:00→20:16)
[2016-11-26] MEDS: PANTOPRAZOLE 40MG TAB (PROTONIX) PO SCH (09:10)
[2016-11-26] MEDS: guaiFENesin ER 600 MG TAB PO SCH ×2 (09:10→20:16)
[2016-11-26] MEDS: DOCUSATE SODIUM 100 MG CAP PO SCH ×2 (09:10→20:16)
[2016-11-26] MEDS: ENOXAPARIN 80 MG/0.8 ML SYRINGE (J1650) SC SCH ×2 (09:10→20:17)
[2016-11-26] MEDS: SERTRALINE HCL 25 MG TABLET PO SCH (09:10)
[2016-11-26] MEDS: SUCRALFATE 1 GM TAB PO SCH ×4 (09:10→20:16)
[2016-11-26 14:00] VITALS: BP 129/75
--- NOTE | 2016-11-26 15:07 | IPN ---
DATE: 11/26/2016 SUBJECTIVE: The patient is seen and examined in the room today. The patient is sitting comfortably in the recliner. Denies any acute complaint or acute changes. The patient stated he has been trying to work hard with physical therapy. No overnight events reported. OBJECTIVE: VITAL SIGNS: Temperature is 98.5, pulse is 74, respirations 18, blood pressure is 156/88 supine, standing is 149/92. Pulse oximetry is 97% in room air. GENERAL: No sign of acute distress. The patient is alert and awake, shows some sign of dementia. HEENT: Normocephalic, atraumatic. Extraocular motor grossly intact. CARDIOVASCULAR: Positive S1, S2, regular rate. LUNGS: Clear to auscultation bilaterally. ABDOMEN: Soft, nontender, nondistended. Bowel sounds present. No rebound. No guarding. EXTREMITIES: No edema. No sign of cyanosis. LABORATORY DATA: WBC is 7.5, hemoglobin 11.9, hematocrit 36.3, platelet count is 247. Sodium is 139, potassium 3.9, chloride is 106, carbon dioxide 25, BUN 10, creatinine 0.75, GFR greater than 60, fasting glucose is 84, calcium is 7.9, phosphorus 2.5, total bilirubin is 0.3, AST 39, ALT is 42, alkaline phosphatase is 78, total protein is 6.5, albumin is 2. Sputum culture showed normal jhoana. ASSESSMENT AND PLAN: 1. Orthostatic hypotension secondary to poor oral intake and dehydration. The patient has been receiving IV fluid. The patient's orthostatic hypotension has resolved and the patient has good oral intake. IV fluid is discontinued. 2. Acute on chronic anemia. No sign of acute bleeding at this moment. The patient had a history of two pack red blood cell transfusion on 11/23/2016. Stool occult blood test was negative. 3. Left lower lobe pneumonia. The patient is on Levaquin. Unfortunately, sputum culture was not able to capture the organism. 4. Spinal stenosis. Neurosurgery consulted. No surgery is recommended. Continue with physical therapy. Continue pain control. Pain management has been consulted and recommended continuing with current pain regimen. 5. Urinary tract infection. Urine culture showed Enterococcus faecalis and Staphylococcus simulans. The patient is on Levaquin. 6. Left-sided abdominal discomfort, improving. The patient is on a bowel regimen. The patient is on proton pump inhibitor (PPI) and Carafate. 7. Right common femoral vein deep vein thrombosis (DVT). The patient is on therapeutic dose of Lovenox which is 70 mg subcutaneous every 12 hours. 8. Depression, on Zoloft. 9. History of coronary artery disease, on aspirin and statin. 10. History of bradycardia. Beta shaila has been on hold. Currently, the patient's heart rate is within normal range. 11. Benign prostatic hypertrophy. Flomax is on hold secondary to orthostatic hypotension. 12. DVT prophylaxis. The patient is on therapeutic dose of Lovenox.
[2016-11-26] MEDS: zolPIDEM TARTRATE 5 MG TAB PO SCH (20:16)
[2016-11-26] MEDS: FLUoxetine 20 MG CAP PO SCH (20:16)
[2016-11-26 22:00] VITALS: BP 148/82
[2016-11-27] MEDS: LevoFLOXacin 500 MG TABLET PO SCH (05:46)
[2016-11-27 06:00] VITALS: BP_SYST 160; BP_SYST 161; BP_SYST 169; BP_DIAS 78; BP_DIAS 92
[2016-11-27 06:43] LABS: BASO % 0.4 % (0.0-1.0); EOS # 0.2 K/mm3 (0.0-0.50); EOS % 3.5 % (0.0-3.0); LARGE UNSTAINED CELL # 0.2 K/mm3 (0.0-0.4); LARGE UNSTAINED CELL % 3.2 % (0.0-4.0); LYMPH # 2.1 K/mm3 (1.5-4.5); LYMPH % 25.7 % (24.0-44.0); MEAN CORPUSCULAR HEMOGLOBIN 29.4 pg (27.0-33.0); MEAN CORPUSCULAR HGB CONC 31.9 g/dl (32.0-36.5); MEAN CORPUSCULAR VOLUME 92.3 fl (80.0-96.0); MONO # 0.5 K/mm3 (0.0-0.8); MONO % 6.7 % (0.0-5.0); NEUTROPHILS # 4.4 K/mm3 (1.8-7.7); NEUTROPHILS % 60.6 % (36.0-66.0); PLATELET COUNT, AUTOMATED 253 k/mm3 (150-450); RED CELL DISTRIBUTION WIDTH 16.4 % (11.5-14.5); WHITE BLOOD COUNT 7.2 K/mm3 (4.0-10.0)
[2016-11-27 06:59] LABS: ALBUMIN 2.2 GM/DL (3.2-5.2); ALBUMIN/GLOBULIN RATIO 0.52 (1.00-1.93); ALKALINE PHOSPHATASE 83 U/L (45-117); ALT/SGPT 43 U/L (12-78); ANION GAP 4 MEQ/L (8-16); AST/SGOT 33 U/L (15-37); BILIRUBIN,TOTAL 0.4 MG/DL (0.2-1.0); BLOOD UREA NITROGEN 13 MG/DL (7-18); CARBON DIOXIDE LEVEL 29 MEQ/L (21-32); CHLORIDE LEVEL 106 MEQ/L (98-107); CREATININE FOR GFR 0.71 MG/DL (0.70-1.30); GLOMERULAR FILTRATION RATE > 60.0 (>35); GLUCOSE, FASTING 81 MG/DL (83-110); MAGNESIUM LEVEL 1.9 MG/DL (1.8-2.4); POTASSIUM SERUM 4.1 MEQ/L (3.5-5.1); SODIUM LEVEL 139 MEQ/L (136-145); TOTAL PROTEIN 6.4 GM/DL (6.4-8.2)
[2016-11-27] MEDS: SUCRALFATE 1 GM TAB PO SCH ×4 (08:40→20:26)
[2016-11-27] MEDS: SERTRALINE HCL 25 MG TABLET PO SCH (08:41)
[2016-11-27] MEDS: DOCUSATE SODIUM 100 MG CAP PO SCH ×2 (08:41→20:27)
[2016-11-27] MEDS: ENOXAPARIN 80 MG/0.8 ML SYRINGE (J1650) SC SCH ×2 (08:41→20:25)
[2016-11-27] MEDS: MIRALAX *UNIT DOSE* 17GM PACKET PO SCH ×2 (08:42→20:27)
[2016-11-27] MEDS: guaiFENesin ER 600 MG TAB PO SCH ×2 (08:42→20:26)
[2016-11-27] MEDS: PANTOPRAZOLE 40MG TAB (PROTONIX) PO SCH (08:42)
[2016-11-27] MEDS: CARVedilol 6.25 MG TAB PO SCH ×2 (09:00→20:17)
[2016-11-27 14:00] VITALS: BP 142/73
--- NOTE | 2016-11-27 14:57 | IPN ---
DATE: 11/27/2016 SUBJECTIVE: The patient is seen and examined in the room today. The patient is eating well. No acute complaints. The patient has been working with physical therapy (PT). The patient still experienced some chronic back pain. No overnight events reported. OBJECTIVE: VITAL SIGNS: Temperature is 98.7, pulse is 66, respirations 20, blood pressure is 161/78, pulse oximetry is 95% on room air. GENERAL: No sign of acute distress. Sitting comfortably in the room in a chair. Able to answer questions and follow commands. HEENT: Normocephalic, atraumatic. Extraocular motor grossly intact. CARDIOVASCULAR: Positive S1, S2, regular rate. LUNGS: Clear to auscultation bilaterally. ABDOMEN: Soft, nontender, nondistended. Bowel sounds present. No rebound. No guarding. EXTREMITIES: No edema. No sign of cyanosis. LABORATORY DATA: WBC is 7.2, hemoglobin 11.4, hematocrit 35.6, platelet count is 253. Sodium is 139, potassium 4.1, chloride is 106, carbon dioxide 29, BUN 13, creatinine 0.71, GFR greater than 60, fasting glucose is 81, calcium is 8, magnesium 1.9, total bilirubin 0.4, AST 33, ALT 43, alkaline phosphatase 83, total protein 6.4, albumin 2.2. ASSESSMENT AND PLAN: 1. Orthostatic hypotension secondary to poor oral intake and dehydration. The patient had IV resuscitation previously. Currently, the patient is not hypotensive anymore. IV fluid has been discontinued. The patient is unable to maintain satisfactory blood pressure. We will restart the patient on his normal blood pressure medications, including carvedilol and losartan. 2. Acute on chronic anemia. No sign of active bleeding at this moment. The patient had two pack red blood cell transfusion on 11/23/2016. The patient is not symptomatic at this moment. 3. Left lower lobe pneumonia. The patient is on Levaquin. Unfortunately, sputum culture did not citrus picker any significant organisms. 4. Urinary tract infection. Culture showed Enterococcus faecalis and Staphylococcus simulans. The patient is on Levaquin. 5. Spinal stenosis. Neurosurgery was consulted. No surgery was recommended. The patient is to continue with physical therapy (PT). Continue with pain control. Pain management has been consulted. Recommend continue current pain regimen. 6. Left-sided abdominal discomfort, improved after the bowel regimen. The patient is on proton pump inhibitor (PPI) and Carafate. 7. Right common femoral vein deep vein thrombosis (DVT). The patient is on therapeutic dose of Lovenox. On the day of discharge, the patient will be on Eliquis 5 mg by mouth twice a day. 8. Depression. The patient has been evaluated by the psychiatrist. The patient is currently on Zoloft and Prozac. 9. History of coronary artery disease, on aspirin and statin. 10. Benign prostatic hypertrophy. Flomax has been on hold due to orthostatic hypotension. Since orthostatic hypotension resolved, we will restart the Flomax for the patient. Continue to monitor input and output. 12. Deep vein thrombosis (DVT) prophylaxis. The patient is on therapeutic dose of Lovenox.
[2016-11-27 18:00] VITALS: BP_SYST 149; BP_SYST 165; BP_DIAS 82; BP_DIAS 85; BP_DIAS 86
[2016-11-27] MEDS: zolPIDEM TARTRATE 5 MG TAB PO SCH (20:26)
[2016-11-27] MEDS: FLUoxetine 20 MG CAP PO SCH (20:26)
[2016-11-27] MEDS: LOSARTAN 50 MG TAB PO SCH (20:27)
[2016-11-27 22:00] VITALS: BP 131/74
[2016-11-28] MEDS: LevoFLOXacin 500 MG TABLET PO SCH (05:15)
[2016-11-28 06:00] VITALS: BP_SYST 151; BP_SYST 153; BP_SYST 157; BP_DIAS 82; BP_DIAS 87
[2016-11-28 07:01] LABS: BASO % 0.3 % (0.0-1.0); EOS # 0.3 K/mm3 (0.0-0.50); EOS % 4.3 % (0.0-3.0); LARGE UNSTAINED CELL # 0.3 K/mm3 (0.0-0.4); LARGE UNSTAINED CELL % 3.7 % (0.0-4.0); LYMPH # 2.1 K/mm3 (1.5-4.5); LYMPH % 25.6 % (24.0-44.0); MEAN CORPUSCULAR HEMOGLOBIN 30.4 pg (27.0-33.0); MEAN CORPUSCULAR VOLUME 92.3 fl (80.0-96.0); MONO # 0.4 K/mm3 (0.0-0.8); MONO % 5.4 % (0.0-5.0); NEUTROPHILS # 4.3 K/mm3 (1.8-7.7); NEUTROPHILS % 60.6 % (36.0-66.0); PLATELET COUNT, AUTOMATED 228 k/mm3 (150-450); RED CELL DISTRIBUTION WIDTH 16.2 % (11.5-14.5); WHITE BLOOD COUNT 7.1 K/mm3 (4.0-10.0)
[2016-11-28 07:15] LABS: ALBUMIN/GLOBULIN RATIO 0.51 (1.00-1.93); ALKALINE PHOSPHATASE 71 U/L (45-117); ALT/SGPT 35 U/L (12-78); ANION GAP 6 MEQ/L (8-16); AST/SGOT 29 U/L (15-37); BILIRUBIN,TOTAL 0.4 MG/DL (0.2-1.0); BLOOD UREA NITROGEN 12 MG/DL (7-18); CALCIUM LEVEL 7.9 MG/DL (8.8-10.2); CARBON DIOXIDE LEVEL 28 MEQ/L (21-32); CHLORIDE LEVEL 105 MEQ/L (98-107); GLOMERULAR FILTRATION RATE > 60.0 (>35); GLUCOSE, FASTING 82 MG/DL (83-110); POTASSIUM SERUM 3.9 MEQ/L (3.5-5.1); SODIUM LEVEL 139 MEQ/L (136-145); TOTAL PROTEIN 5.9 GM/DL (6.4-8.2)
[2016-11-28] MEDS: guaiFENesin ER 600 MG TAB PO SCH ×2 (08:51→20:41)
[2016-11-28] MEDS: DOCUSATE SODIUM 100 MG CAP PO SCH ×2 (08:51→20:40)
[2016-11-28] MEDS: CARVedilol 6.25 MG TAB PO SCH ×2 (08:51→20:41)
[2016-11-28] MEDS: SERTRALINE HCL 25 MG TABLET PO SCH (08:51)
[2016-11-28] MEDS: SUCRALFATE 1 GM TAB PO SCH ×4 (08:51→20:41)
[2016-11-28] MEDS: ENOXAPARIN 80 MG/0.8 ML SYRINGE (J1650) SC SCH ×2 (08:51→20:40)
[2016-11-28] MEDS: PANTOPRAZOLE 40MG TAB (PROTONIX) PO SCH (08:51)
[2016-11-28] MEDS: MIRALAX *UNIT DOSE* 17GM PACKET PO SCH ×2 (08:52→20:42)
--- NOTE | 2016-11-28 16:36 | IPN ---
DATE: 11/28/2016 SUBJECTIVE: The patient is seen and examined in the room today. The patient stated he is feeling fine. He has been working with physical therapy. He noticed some improvement in his mobility. No overnight events reported. OBJECTIVE: VITAL SIGNS: Temperature is 96.8, pulse is 63, respirations 20, blood pressure is 151/82, pulse oximetry is 95% on room air. GENERAL: No sign of acute distress. Alert and oriented times three. HEENT: Normocephalic, atraumatic. Extraocular motor grossly intact. CARDIOVASCULAR: Positive S1, S2, regular rate. LUNGS: Clear to auscultation bilaterally. ABDOMEN: Soft, nontender, nondistended. Bowel sounds present. No rebound. No guarding. EXTREMITIES: No edema. No sign of cyanosis. LABORATORY DATA: WBC 7.1, hemoglobin 10.9, hematocrit 33, platelet count 228. Sodium 139, potassium 3.9, chloride 105, carbon dioxide 28, BUN 12, creatinine 0.7, GFR greater than 60, fasting glucose 82, calcium 7.9, total bilirubin 0.4, AST 29, ALT 35, alkaline phosphatase 71, total protein 5.9, albumin 2. ASSESSMENT AND PLAN: 1. Orthostatic hypotension secondary to poor oral intake and dehydration. Repeated orthostatic show patient's orthostatic hypotension had resolved. Patient has been off the IV fluid support, and patient is able to maintain satisfactory blood pressure. Patient continues to work with physical therapy. Patient's blood pressure medication was started since yesterday, that includes carvedilol and losartan. 2. Acute on chronic anemia. No active bleeding at this moment. Hemoglobin and hematocrit has been stable. Most recent blood transfusion was 11/23/2016 when patient had two packed red blood cell transfusion. 3. Left lower lobe pneumonia. The patient is on Levaquin. Unfortunately, sputum culture did not package pick up any significant organisms. Clinically, patient shows significant improvement. Continue management., 4. Urinary tract infection. Culture showed Enterococcus faecalis and Staphylococcus simulans. The patient is on Levaquin. 5. Spinal stenosis. Neurosurgery was consulted. No surgery was recommended. Continue with physical therapy (PT). Continue with pain control. Pain management has been consulted and pain management regimen to maintain unchanged.. 6. Left-sided abdominal discomfort, possibly due to constipatiom. Improved after bowel regimen. The patient is on proton pump inhibitor (PPI) and Carafate. 7. Right common femoral vein deep vein thrombosis (DVT). The patient is on therapeutic dose of Lovenox. On the day of discharge, the patient will be on Eliquis 5 mg by mouth twice a day. 8. Depression. The patient was been evaluated by the psychiatrist. The patient does not need [facility] admission. Patient is on Zoloft and Prozac. 9. History of coronary artery disease, on aspirin and statin. 10. Benign prostatic hypertrophy. Patient is started on Flomax. 12. Deep vein thrombosis (DVT) prophylaxis. The patient is on therapeutic dose of Lovenox. DISPOSITION: Patient continues to work with physical therapy. We anticipate patient may be discharged in the next 24 to 48 hours based on the physical therapy evaluation.
[2016-11-28 18:00] VITALS: BP_SYST 141; BP_SYST 142; BP_SYST 148; BP_DIAS 80; BP_DIAS 83
[2016-11-28] MEDS: FLUoxetine 20 MG CAP PO SCH (20:41)
[2016-11-28] MEDS: LOSARTAN 50 MG TAB PO SCH (20:41)
[2016-11-28] MEDS: zolPIDEM TARTRATE 5 MG TAB PO SCH (20:42)
[2016-11-28] MEDS ORDERED: TAMSULOSIN 0.4 MG CAP PO SCH (21:00)
[2016-11-28 22:00] VITALS: BP 140/72
[2016-11-29] MEDS: LevoFLOXacin 500 MG TABLET PO SCH (05:31)
[2016-11-29 05:36] VITALS: BP_SYST 133; BP_SYST 143; BP_DIAS 79; BP_DIAS 85; BP_DIAS 87
[2016-11-29 06:44] LABS: BASO % 0.6 % (0.0-1.0); EOS # 0.3 K/mm3 (0.0-0.50); EOS % 4.7 % (0.0-3.0); LARGE UNSTAINED CELL # 0.2 K/mm3 (0.0-0.4); LARGE UNSTAINED CELL % 3.6 % (0.0-4.0); LYMPH % 26.9 % (24.0-44.0); MEAN CORPUSCULAR HEMOGLOBIN 30.2 pg (27.0-33.0); MEAN CORPUSCULAR HGB CONC 32.4 g/dl (32.0-36.5); MEAN CORPUSCULAR VOLUME 93.1 fl (80.0-96.0); MONO # 0.5 K/mm3 (0.0-0.8); MONO % 7.4 % (0.0-5.0); NEUTROPHILS # 3.6 K/mm3 (1.8-7.7); NEUTROPHILS % 56.8 % (36.0-66.0); PLATELET COUNT, AUTOMATED 254 k/mm3 (150-450); RED CELL DISTRIBUTION WIDTH 16.4 % (11.5-14.5); WHITE BLOOD COUNT 6.4 K/mm3 (4.0-10.0)
[2016-11-29 06:55] LABS: ALBUMIN 2.1 GM/DL (3.2-5.2); ALBUMIN/GLOBULIN RATIO 0.58 (1.00-1.93); ALKALINE PHOSPHATASE 71 U/L (45-117); ALT/SGPT 34 U/L (12-78); ANION GAP 6 MEQ/L (8-16); AST/SGOT 26 U/L (15-37); BILIRUBIN,TOTAL 0.3 MG/DL (0.2-1.0); BLOOD UREA NITROGEN 14 MG/DL (7-18); CALCIUM LEVEL 7.8 MG/DL (8.8-10.2); CARBON DIOXIDE LEVEL 27 MEQ/L (21-32); CHLORIDE LEVEL 105 MEQ/L (98-107); CREATININE FOR GFR 0.74 MG/DL (0.70-1.30); GLOMERULAR FILTRATION RATE > 60.0 (>35); GLUCOSE, FASTING 83 MG/DL (83-110); POTASSIUM SERUM 3.9 MEQ/L (3.5-5.1); SODIUM LEVEL 138 MEQ/L (136-145); TOTAL PROTEIN 5.7 GM/DL (6.4-8.2)
[2016-11-29] MEDS: MIRALAX *UNIT DOSE* 17GM PACKET PO SCH (08:23)
[2016-11-29] MEDS: DOCUSATE SODIUM 100 MG CAP PO SCH (08:27)
[2016-11-29] MEDS: ENOXAPARIN 80 MG/0.8 ML SYRINGE (J1650) SC SCH (08:27)
[2016-11-29] MEDS: guaiFENesin ER 600 MG TAB PO SCH (08:27)
[2016-11-29] MEDS: PANTOPRAZOLE 40MG TAB (PROTONIX) PO SCH (08:27)
[2016-11-29] MEDS: SUCRALFATE 1 GM TAB PO SCH (08:27)
[2016-11-29] MEDS: SERTRALINE HCL 25 MG TABLET PO SCH (08:27)
[2016-11-29 08:28] VITALS: BP 133/85
[2016-11-29] MEDS: CARVedilol 6.25 MG TAB PO SCH (08:28)
[2016-11-29] MEDS ORDERED: SERT25TA PO (08:53)
--- NOTE | 2016-11-30 15:04 | DSES ---
DATE OF ADMISSION: 11/16/2016 DATE OF DISCHARGE: 11/29/2016 PRIMARY CARE PROVIDER: Dr. Paulino CONSULTANTS: Psychiatrist, Dr. Restrepo, pain management, Whit Saleh, neurosurgery. PROCEDURES: None. COMPLICATIONS: None. ADMISSION/DISCHARGE DIAGNOSES: 1. Orthostatic hypotension secondary to poor oral intake and dehydration. 2. Acute on chronic anemia. 3. Left lower lobe pneumonia. 4. Urinary tract infection from Enterococcus faecalis and Staphylococcus simulans. 5. Spinal stenosis. 6. Left-sided abdominal discomfort from constipation. 7. Right common femoral vein deep vein thrombosis. 8. Depression. 9. History of coronary artery disease. 10. Benign prostatic hypertrophy. HOSPITALIZATION COURSE: Patient is an 81-year-old male who presented to [facility] on 11/16/2016 for altered mental status. MR brain scan was performed, which did not show any abnormalities, and the patient has been admitted on telemetry. Electroencephalogram (EEG) was ordered to rule out seizures. Later, EEG came back negative. Patient was found to be severely hydrated, resulting in symptomatic orthostasis. Patient was started on intravenous (IV) support. Later, the urinalysis showed positive results, and patient was started on empiric antibiotics while waiting for the urine cultures. Later, patient was seen by the neurologist and recommended holding of antiepileptic medication and continuing with patient's antidepressants. Due to significant history of depression and possible suicidal thoughts, psychiatrist, Dr. Restrepo was consulted and recommended inpatient mental health unit (IMHU) transfer once patient is medically stabilized. Later patient was found to have a deep vein thrombosis (DVT) of the right common femoral vein, and patient was started on Lovenox. Patient did also have a complaint of significant abdominal pain. Imaging shows patient has severe constipation, and patient's pain was treated with bowel regimen. Patient also started on a proton pump inhibitor. Later, patient was re-evaluated by the psychiatrist, who felt patient does not really need IMHU admission, and patient's antidepressant is being adjusted and recommend outpatient psychiatry followup. Clothing Patternmaker was also consulted for patient's severe protein caloric malnutrition. On 11/23/2016, patient was found to have significant anemia. Consent was obtained from the patient's proxy, and 2 units packed red blood cells were ordered and were given to the patient. Patient was Hemoccult negative. Later, during the CT scan, patient was found to have left lower lobe findings, and patient was started on antibiotic treatment. MRI of the lumbar spine was performed due to persistent back pain. Neurosurgery was consulted, and patient was determined to not be a good candidate for surgical intervention, and patient management was consulted. Then patient's IV fluid was discontinued, and patient demonstrated good oral intake with good nutritional intake, and patient did not show any recurrence of orthostasis. On 11/29/2016, patient passed physical therapy for discharge. VITAL SIGNS: Temperature 99.1, pulse is 65, respirations 16, blood pressure supine is 133/79, sitting is 133/85, standing is 143/87. LABORATORY DATA: WBC 6.4, hemoglobin 10.7, hematocrit 33.1, platelet count is 254. Sodium is 138, potassium 3.9, chloride 105, carbon dioxide 27, BUN 14, creatinine 1.74, GFR greater than 60, fasting glucose 83, calcium 7.8. Total bilirubin 0.3, AST 26, ALT is 34, alkaline phosphatase 71, total protein is 5.7, albumin 2.1. Microbiology: Urine culture on 11/16/2016 showed Enterococcus faecalis and Staphylococcus simulans. Blood cultures on 11/16/2016 are negative after 5 days times two sets. Hemoccult on 11/20/2016 negative. Sputum culture on 11/24/2016 showed normal jhonaa. IMAGING STUDIES: CT of the head without contrast on 11/16/2016 showed age-related atrophy and microvascular ischemic change. No acute intracranial hemorrhage, infarction, or mass. Chest x-ray on 11/16/2016 showed normal portable chest x-ray. MRI of the brain without contrast on 11/16/2016 showed no evidence of acute hemorrhages or infarcts. Mild chronic small-vessel ischemic changes. CT of the abdomen and pelvis with contrast on 11/20/2016 showed small bilateral pleural effusion with mild bibasilar atelectasis/infiltrate. A small hiatal hernia. Right inguinal hernia. There is a possible thrombus of the right common femoral vein. Recommend ultrasound. Bilateral lower extremity Doppler shows positive right-sided DVT. CT of the thoracic spine without contrast showed degenerative changes, left lower lobe atelectasis or infiltrate, and small pleural effusions. CT of the lumbar spine without contrast showed severe central stenosis at L2-3, severe central stenosis at L3-4, and there is diffuse disc bulging at L5-S1 level, and there is compression of the L5 nerve in the neural foramen. There is compression of the L3 and L4 nerve. DISCHARGE MEDICATIONS: - Eliquis 5 mg by mouth twice a day - carvedilol 6.25 mg by mouth twice a day - donepezil 5 mg by mouth daily - doxazosin 2 mg by mouth daily - fluoxetine 20 mg by mouth at bedtime - losartan 5 mg by mouth at bedtime - simvastatin 20 mg by mouth at bedtime - Flomax 0.4 mg by mouth at bedtime DISCHARGE INSTRUCTIONS: Discontinue line. Discharge home. Activity as tolerated. Low-salt diet as tolerated. Patient shall followup with primary care provider in 1 weeks. DISCHARGE CONDITION: Stable. DISCHARGE TIME: Greater than 30 minutes.
[2016-11-30] MEDS ORDERED: SERT25TA PO (18:25)
[2016-11-30] MEDS ORDERED: DOXA1TAB71 PO (18:25)
== END 2016-11-29 12:04 | disposition home health service (06) | DRG 640 ==
LOC: EDBD 13:37 → M ED 15:01 → M ED INP 18:54 → M PCU 20:04 → M MSPAV 11-18 11:03
PROVIDERS: ADMIT Hospitalist; ATTEND Internal Medicine
DX: E86.0 Dehydration (principal); E43 Unspecified severe protein-calorie malnutrition; J18.9 Pneumonia, unspecified organism; N39.0 Urinary tract infection, site not specified; R45.851 Suicidal ideations; I82.411 Acute embolism and thrombosis of right femoral vein; F32.2 Major depressive disorder, single episode, severe without psychotic features; I95.1 Orthostatic hypotension; K59.00 Constipation, unspecified; Z66 Do not resuscitate; N40.0 Benign prostatic hyperplasia without lower urinary tract symptoms; I25.10 Atherosclerotic heart disease of native coronary artery without angina pectoris; Z79.899 Other long term (current) drug therapy; M48.06 Spinal stenosis, lumbar region; Z86.73 Personal history of transient ischemic attack (TIA), and cerebral infarction without residual deficits; I10 Essential (primary) hypertension; E78.5 Hyperlipidemia, unspecified; Z88.0 Allergy status to penicillin; Z87.891 Personal history of nicotine dependence; E86.1 Hypovolemia

== ENCOUNTER 2016-11-30 18:12 | Emergency (ER) | payer MEDICARE, OTHER ==
[~2016-11-30] VITALS: Ht 162.6 cm; Wt 59.0 kg
[~2016-11-30 18:12] MED LIST changes: +CARV6.25 PO; +DONETAB5 PO; +DOXA1TAB71 PO; +ELIQ5TAB PO; +FLUO20CA8 PO; +GERITAB9 PO; +SERT25TA PO
[2016-11-30] MEDS ORDERED: SERT25TA PO (18:25)
[2016-11-30] MEDS ORDERED: DOXA1TAB71 PO (18:25)
[2016-11-30] MEDS ORDERED: ACETAMINOPH W/CODEINE #3 TAB UD PO ONE (19:30)
[2016-11-30] MEDS ORDERED: LIDOCAINE 2% 5ML JELLY UROJET TOP ONE (19:30)
[2016-11-30 19:56] VITALS: BP 132/79
--- NOTE | 2016-11-30 19:57 | ED PDOC ---
Post-Departure Follow-Up SPOKE WITH DR. DUMONT REGARDING THIS PT WELL. ADVISED BLADDER SCAN SHOWED NO RESIDUAL URINE IN THE BLADDER AND CATHETER BAG DRAINING NICELY. DR. DUMONT WANTED NURSING STAFF TO FLUSH THE CATHETER BUT ADVISED PT COMPLAINING OF PAIN AND DID NOT WANT THE CATHETER CHANGED. ADVISED THIS IS FINE AND CAN FOLLOW UP IN THE OFFICE. TUNG KOROMA PA-C Nov 30, 2016 19:57
== END 2016-11-30 20:02 | disposition home or self-care (01) ==
LOC: M ED 19:13
DX: R31.9 Hematuria, unspecified (principal); R10.9 Unspecified abdominal pain; I10 Essential (primary) hypertension; I25.2 Old myocardial infarction; Z96.0 Presence of urogenital implants; Z87.442 Personal history of urinary calculi; Z86.718 Personal history of other venous thrombosis and embolism; Z95.5 Presence of coronary angioplasty implant and graft; Z79.01 Long term (current) use of anticoagulants; Z79.899 Other long term (current) drug therapy; Z88.0 Allergy status to penicillin; Z87.891 Personal history of nicotine dependence

== ENCOUNTER → 2017-01-14 | Outpatient (REF) | payer MEDICARE, OTHER ==
[~2017-01-14] MED LIST changes: +ACET65SU PR; +ASPI1TAB PO; +B-12100010 PO; +BACITAB PO; +CIPR-249 PO; +CIPR250T3; -CIPR500T89 PO; -COLA100C3 PO; +COLA100C5 PO; +DRIS50002 PO; +FERR325T3 PO; +HYOS125TA PO; +LORA0.5T11 PO; -MAGNSOL PO; +MAGNSOL18 PO; +MOME50SP2; +MORP20SO3 PO; +MULTLIQ7 PO; +PERC5TAB12 PO; -PERC5TAB6 PO; +RANI300T PO; +TRAM50TA2 PO; +VITA-110 PO; +VITA1CAP40; +VITA1TAB27 PO; +VITMTA PO; +XYZA5TAB2 PO; +[UNRECOGNIZED DRUG - OTHER]
[2017-01-14 18:41] LABS: ALBUMIN 3.1 GM/DL (3.2-5.2)
== END ==
LOC: M SFHCPLAZ 15:57
PROVIDERS: ATTEND Family Medicine
DX: E88.09 Other disorders of plasma-protein metabolism, not elsewhere classified (principal); D50.9 Iron deficiency anemia, unspecified; F32.9 Major depressive disorder, single episode, unspecified; I10 Essential (primary) hypertension; Z79.899 Other long term (current) drug therapy
CPT/HCPCS: 36415; 82040; 82306; 84134; G0463

== ENCOUNTER → 2017-01-16 | Outpatient (REF) | payer MEDICARE, OTHER | LOC: M SFHCPLAZ 15:35 | PROVIDERS: ATTEND Family Medicine | DX: D50.9 Iron deficiency anemia, unspecified (principal) ==

== ENCOUNTER → 2017-01-21 | Outpatient (REF) | payer MEDICARE, OTHER | LOC: M SMT 17:08 | PROVIDERS: ATTEND Urology | DX: R31.29 Other microscopic hematuria (principal) | CPT/HCPCS: 87088; 87186; G0463 ==

== ENCOUNTER → 2017-02-07 | Outpatient (CLI) | payer MEDICARE, OTHER ==
[2017-02-07 13:33] LABS: INR 1.14
[2017-02-07 13:34] LABS: MEAN CORPUSCULAR HEMOGLOBIN 30.1 pg (27.0-33.0); MEAN CORPUSCULAR HGB CONC 32.6 g/dl (32.0-36.5); MEAN CORPUSCULAR VOLUME 92.3 fl (80.0-96.0); RED CELL DISTRIBUTION WIDTH 15.1 % (11.5-14.5); WHITE BLOOD COUNT 8.6 K/mm3 (4.0-10.0)
[2017-02-07 13:57] LABS: ANION GAP 8 MEQ/L (8-16); BLOOD UREA NITROGEN 19 MG/DL (7-18); CALCIUM LEVEL 8.7 MG/DL (8.8-10.2); CARBON DIOXIDE LEVEL 28 MEQ/L (21-32); CHLORIDE LEVEL 106 MEQ/L (98-107); CREATININE FOR GFR 0.85 MG/DL (0.70-1.30); GLOMERULAR FILTRATION RATE > 60.0 (>35); GLUCOSE, FASTING 80 MG/DL (83-110); POTASSIUM SERUM 4.4 MEQ/L (3.5-5.1); SODIUM LEVEL 142 MEQ/L (136-145)
== END ==
LOC: M SMT 10:29
PROVIDERS: ATTEND Urology
DX: N40.1 Benign prostatic hyperplasia with lower urinary tract symptoms (principal); Z79.899 Other long term (current) drug therapy

== ENCOUNTER → 2017-02-07 | Outpatient (REF) | payer MEDICARE, OTHER | LOC: M SMT 13:06 | PROVIDERS: ATTEND Urology | DX: Z01.818 Encounter for other preprocedural examination (principal); N40.1 Benign prostatic hyperplasia with lower urinary tract symptoms; N39.0 Urinary tract infection, site not specified; I25.2 Old myocardial infarction; Z88.0 Allergy status to penicillin; Z79.899 Other long term (current) drug therapy; R33.9 Retention of urine, unspecified ==

== ENCOUNTER → 2017-02-12 | Outpatient (CLI) | payer MEDICARE, OTHER ==
--- NOTE | 2017-02-12 13:58 | REP ---
CHEST X-RAY, PA AND LATERAL: 02/12/2017. Comparison: PA chest 11/23/2016, portable chest 11/16/2016. Clinical history: Pre-procedural examination. Findings: Lung drake are well inflated. There is no pleural effusion, lateral pleural thickening, acute infiltrate, atelectasis or mass. The heart has left ventricular configuration with borderline cardiac size. I see no vascular redistribution, pulmonary edema, pleural effusion or acute infiltrate. Hilar and mediastinal contours are stable. Slight tortuosity of the aorta without aneurysm, normal for age. Scattered gas in colon without dilatation. Bones show no acute compression deformity or destructive lesion. There is no free air under the diaphragm. Impression: 1. Left ventricular configuration of the heart without gross cardiomegaly, vascular redistribution or pulmonary edema. 2. Some prominence of pulmonary arteries that may reflect some pulmonary artery hypertension, possibly on the basis of COPD. No acute bony finding, aortic aneurysm or other significant abnormality. Signed by Oswald Jimenez MD 02/12/2017 04:13 P
== END ==
LOC: M RAD 11:54
PROVIDERS: ATTEND Urology
DX: Z01.818 Encounter for other preprocedural examination (principal); N40.1 Benign prostatic hyperplasia with lower urinary tract symptoms

== ENCOUNTER 2017-02-17 09:12 | Day surgery (SDC) | payer MEDICARE, OTHER ==
[~2017-02-17] VITALS: Ht 165.1 cm; Wt 61.2 kg
[~2017-02-17 09:12] MED LIST changes: -ACET65SU PR; -ASPI1TAB PO; -B-12100010 PO; -BACITAB PO; -CIPR250T3; -DRIS50002 PO; -FERR325T3 PO; -HYOS125TA PO; -LORA0.5T11 PO; +LR 1,000 ML IV ONE; +LevoFLOXacin IV 500 MG in APPROPRIATE DILUENT 1 EA IV ONE; -MOME50SP2; -MORP20SO3 PO; -MULTLIQ7 PO; -RANI300T PO; -TRAM50TA2 PO; -VITA-110 PO; -VITA1CAP40; -VITMTA PO; -XYZA5TAB2 PO; -[UNRECOGNIZED DRUG - OTHER]
[2017-02-17] MEDS ORDERED: MIDAZOLAM INJ 2 MG/2 ML VIAL (J2250) As Ordered ONE (10:45)
[2017-02-17] MEDS ORDERED: LIDOCAINE 2% INJ 100 MG/5 ML SDV (FOR ANES.) As Ordered ONE (10:45)
[2017-02-17] MEDS ORDERED: ROCURONIUM BROMIDE 50 MG/5 ML VIAL/SYRINGE As Ordered ONE (10:45)
[2017-02-17] MEDS ORDERED: fentaNYL 250 MCG/5 ML INJECTION (J3010) As Ordered ONE (10:45)
[2017-02-17] MEDS ORDERED: PROPOFOL 200 MG/20 ML VIAL As Ordered ONE (10:45)
[2017-02-17] MEDS ORDERED: ePHEDrine SULFATE 25 MG/5 ML(5MG/ML) SYRINGE As Ordered ONE (11:22)
[2017-02-17] MEDS ORDERED: FUROSEMIDE 100 MG/10 ML VIAL (J1940) As Ordered ONE (11:51)
[2017-02-17] MEDS ORDERED: dexameTHASONE 4 MG/ML 1ML VIAL (J1100) As Ordered ONE (11:52)
[2017-02-17] MEDS ORDERED: ONDANSETRON 4MG/2ML VIAL (J2405) As Ordered ONE (11:52)
[2017-02-17] MEDS ORDERED: LR 1,000 ML IV SCH (12:45)
[2017-02-17] MEDS ORDERED: ONDANSETRON 4MG/2ML VIAL (J2405) IV PRN (12:45)
[2017-02-17] MEDS ORDERED: PERCOCET 5MG/325MG TAB PO PRN (12:45)
[2017-02-17] MEDS ORDERED: fentaNYL 100 MCG/2 ML INJECTION (J3010) IV PRN (12:45)
[2017-02-17] MEDS ORDERED: ACETAMINOPHEN TAB 650MG DOSE (2X325MG) PO PRN (12:45)
[2017-02-17 15:45] VITALS: BP 151/73
--- NOTE | 2017-02-17 18:45 | RO ---
DATE OF PROCEDURE: 02/17/2017 PREPROCEDURE DIAGNOSIS: Benign prostatic hyperplasia with urinary retention. POSTPROCEDURE DIAGNOSIS: Benign prostatic hyperplasia with urinary retention, bladder stone. PROCEDURE: Cystoscopy, Button transurethral electrovaporization of the prostate , removal of bladder stone. SURGEON: Dr. Garfield Morgan WAREHOUSE WORKER 2ND SHIFT: None. ANESTHESIA: General. OPERATIVE INDICATIONS: This is an 82-year-old male with benign prostatic hyperplasia with urinary retention. We have done urodynamics previously to see if his bladder was strong enough to allow him to void if we did do surgery. That testing did demonstrate a weak bladder. Despite this, the patient wanted to give the surgery a shot to see if he would be able to void without the catheter. He was therefore brought to the operating room today for the above listed procedure. DESCRIPTION OF PROCEDURE: The patient was brought to the operating room and general anesthesia was induced. Prophylactic antibiotics were infused. He was then placed in the dorsal lithotomy position and prepped and draped in the usual sterile fashion. The Button resectoscope was inserted into the urethral meatus and advanced into the bladder using the visual obturator. Once within the bladder, of note, a small bladder stone was seen. The stone was then removed. At this point, we noted the location of bilateral ureteral orifices as well as the verumontanum. Of note, the patient had bilobar benign prostatic hyperplasia. At this point, we began vaporizing hyperplastic tissue, beginning circumferentially at the bladder neck. We then started vaporizing both lobes of disease. We kept doing this until there was a clear channel established. Once there was a clear channel established, this marked the conclusion of the procedure. We then utilized a coagulation current to obtain hemostasis. Once there was adequate hemostasis, this marked the conclusion of the procedure. The Button resectoscope was then removed, and an 18-Burmese Saleh catheter was inserted into the bladder. The balloon was filled with 15 mL of sterile water. Fluid drained clear out of the catheter at the end of the procedure. The catheter was then connected to gravity drainage, and this marked the conclusion of the procedure. The patient was then taken out of the dorsal lithotomy position, awakened from anesthesia and transported to the recovery room in stable condition. Estimated blood loss: 5 mL. Complications: None. Specimens: Bladder stone. PLAN: The patient will followup in the clinic in approximately 1 week for catheter removal and a voiding trial. CHANCED
[2017-03-04 00:06] LABS: Size 7x3x3 mm (.)
== END 2017-02-17 14:23 | disposition home or self-care (01) ==
LOC: M SDC 09:12
PROVIDERS: ATTEND Urology
DX: N40.1 Benign prostatic hyperplasia with lower urinary tract symptoms (principal); I25.10 Atherosclerotic heart disease of native coronary artery without angina pectoris; I25.2 Old myocardial infarction; I10 Essential (primary) hypertension; E78.5 Hyperlipidemia, unspecified; K44.9 Diaphragmatic hernia without obstruction or gangrene; F32.9 Major depressive disorder, single episode, unspecified; Z98.61 Coronary angioplasty status; Z87.891 Personal history of nicotine dependence; Z79.02 Long term (current) use of antithrombotics/antiplatelets; Z79.899 Other long term (current) drug therapy; Z88.0 Allergy status to penicillin
CPT/HCPCS: 36415; 52601; 82360; 86850; 86900; 86901; 88300; J1100; J1940; J1956; J2250; J2405; J3010

== ENCOUNTER → 2017-03-03 | Outpatient (CLI) | payer MEDICARE, OTHER ==
[~2017-03-03] MED LIST changes: +ACET65SU PR; +ASPI1TAB PO; +B-12100010 PO; +BACITAB PO; +CIPR250T3; +DRIS50002 PO; +FERR325T3 PO; +HYOS125TA PO; +LORA0.5T11 PO; -LR 1,000 ML IV ONE; -LevoFLOXacin IV 500 MG in APPROPRIATE DILUENT 1 EA IV ONE; +MOME50SP2; +MORP20SO3 PO; +MULTLIQ7 PO; +RANI300T PO; +TRAM50TA2 PO; +VITA-110 PO; +VITA1CAP40; +VITMTA PO; +XYZA5TAB2 PO; +[UNRECOGNIZED DRUG - OTHER]
[2017-03-03 13:58] LABS: MEAN CORPUSCULAR HEMOGLOBIN 30.1 pg (27.0-33.0); MEAN CORPUSCULAR HGB CONC 32.5 g/dl (32.0-36.5); MEAN CORPUSCULAR VOLUME 92.5 fl (80.0-96.0); RED CELL DISTRIBUTION WIDTH 14.8 % (11.5-14.5); WHITE BLOOD COUNT 15.7 K/mm3 (4.0-10.0)
[2017-03-03 14:52] LABS: ANION GAP 6 MEQ/L (8-16); BLOOD UREA NITROGEN 18 MG/DL (7-18); CALCIUM LEVEL 8.5 MG/DL (8.8-10.2); CARBON DIOXIDE LEVEL 30 MEQ/L (21-32); CHLORIDE LEVEL 103 MEQ/L (98-107); CREATININE FOR GFR 1.04 MG/DL (0.70-1.30); GLOMERULAR FILTRATION RATE > 60.0 (>35); GLUCOSE, FASTING 97 MG/DL (83-110); POTASSIUM SERUM 4.4 MEQ/L (3.5-5.1); SODIUM LEVEL 139 MEQ/L (136-145)
== END ==
LOC: M SMT 11:41
PROVIDERS: ATTEND Urology
DX: N40.1 Benign prostatic hyperplasia with lower urinary tract symptoms (principal); Z79.899 Other long term (current) drug therapy
CPT/HCPCS: 36415; 51703; 51798; 80048; 85027; 87088; 87186; G0463

== ENCOUNTER → 2017-03-10 | Outpatient (CLI) | payer MEDICARE, OTHER ==
--- NOTE | 2017-03-10 15:35 | REP ---
PA and lateral chest: Comparison is 02/12/2017. There is minor discoid atelectasis inferiorly in the left lung. The lung drake otherwise clear. Cardiac size is normal. The danielle, mediastinum, and bony thorax are unremarkable. Impression: Minor atelectasis inferior in the right lung. Signed by Zach Boogie MD 03/10/2017 03:27 P
--- NOTE | 2017-03-10 15:37 | REP ---
Supine abdomen two views: Comparison is a CT of the abdomen pelvis dated 11/23/2016. The bowel gas pattern is normal. There is a electronic device superimposed over the pelvis as previously. There is mild lumbar scoliosis convex left, possibly positional. No calcifications. Impression: Normal bowel gas pattern. Signed by Zach Boogie MD 03/10/2017 03:29 P
== END ==
LOC: M WUC 14:09
PROVIDERS: ATTEND Family Medicine
DX: J98.11 Atelectasis (principal); R10.12 Left upper quadrant pain; D64.9 Anemia, unspecified; Z23 Encounter for immunization
CPT/HCPCS: 36415; 71020; 74000; 82728; 84439; 84443; 84466; 85046; 86580; 90662; 90670; G0008; G0009; G0463

== ENCOUNTER → 2017-03-10 | Outpatient (CLI) | payer MEDICARE, OTHER ==
[2017-03-10 19:11] LABS: RETIC HEMOGLOBIN CONTENT CHr 28.5 PG (24-36); RETICULOCYTE % 1.4 % (0.5-1.5)
[2017-03-10 20:15] LABS: FREE T4 1.66 NG/DL (0.76-1.46)
== END ==
LOC: M SMT 13:10
PROVIDERS: ATTEND Family Medicine
DX: R10.12 Left upper quadrant pain (principal); D64.9 Anemia, unspecified

== ENCOUNTER → 2017-03-12 | Outpatient (REF) | payer MEDICARE, OTHER | LOC: M SFHCPLAZ 09:56 | PROVIDERS: ATTEND Family Medicine | DX: R10.12 Left upper quadrant pain (principal); R68.89 Other general symptoms and signs; D64.9 Anemia, unspecified; D50.0 Iron deficiency anemia secondary to blood loss (chronic); E61.1 Iron deficiency; R05 Cough; J30.9 Allergic rhinitis, unspecified ==

== ENCOUNTER → 2017-03-14 | Outpatient (REF) | payer MEDICARE, OTHER | LOC: M SFHCPLAZ 14:42 | PROVIDERS: ATTEND Family Medicine | DX: D50.0 Iron deficiency anemia secondary to blood loss (chronic) (principal) ==

== ENCOUNTER → 2017-03-18 | Outpatient (REF) | payer MEDICARE, OTHER | LOC: M SFHCPLAZ 11:02 | PROVIDERS: ATTEND Family Medicine | DX: D50.0 Iron deficiency anemia secondary to blood loss (chronic) (principal) ==

== ENCOUNTER → 2017-03-19 | Outpatient (REF) | payer MEDICARE, OTHER | LOC: M SFHCPLAZ 09:36 | PROVIDERS: ATTEND Family Medicine | DX: D50.0 Iron deficiency anemia secondary to blood loss (chronic) (principal) ==

== ENCOUNTER 2017-03-24 09:06 | Outpatient (CLI) | payer MEDICARE, OTHER ==
[~2017-03-24 09:06] MED LIST changes: -ACET65SU PR; -ASPI1TAB PO; -B-12100010 PO; -BACITAB PO; -CIPR250T3; -DRIS50002 PO; -FERR325T3 PO; -HYOS125TA PO; -LORA0.5T11 PO; -MOME50SP2; -MORP20SO3 PO; -MULTLIQ7 PO; -RANI300T PO; -TRAM50TA2 PO; -VITA-110 PO; -VITA1CAP40; -VITMTA PO; -XYZA5TAB2 PO; -[UNRECOGNIZED DRUG - OTHER]
[2017-03-24] MEDS ORDERED: IRON SUCROSE 200 MG in NS 250 ML IV ONE (10:00)
== END 2017-03-24 13:15 | disposition home or self-care (01) ==
LOC: M INFU 09:06
PROVIDERS: ATTEND Family Medicine
DX: D50.0 Iron deficiency anemia secondary to blood loss (chronic) (principal); E61.1 Iron deficiency; Z87.891 Personal history of nicotine dependence; Z88.0 Allergy status to penicillin; Z79.899 Other long term (current) drug therapy; Z95.5 Presence of coronary angioplasty implant and graft; Z96.619 Presence of unspecified artificial shoulder joint
CPT/HCPCS: 96365; 96366; J1756

== ENCOUNTER 2017-04-02 08:40 | Outpatient (CLI) | payer MEDICARE, OTHER ==
[~2017-04-02] VITALS: Ht 162.6 cm; Wt 58.9 kg
[2017-04-02] MEDS ORDERED: IRON SUCROSE 200 MG in NS 100 ML IV ONE ×4 (10:00)
== END 2017-04-02 12:00 | disposition home or self-care (01) ==
LOC: M INFU 08:40
PROVIDERS: ATTEND Family Medicine
DX: D50.9 Iron deficiency anemia, unspecified (principal); Z88.0 Allergy status to penicillin; Z96.619 Presence of unspecified artificial shoulder joint; Z95.5 Presence of coronary angioplasty implant and graft; Z87.891 Personal history of nicotine dependence; Z79.899 Other long term (current) drug therapy
CPT/HCPCS: 96365; 96366; J1756

== ENCOUNTER → 2017-04-09 | Outpatient (REF) | payer MEDICARE, OTHER ==
[~2017-04-09] MED LIST changes: +ACET65SU PR; +ASPI1TAB PO; +B-12100010 PO; +BACITAB PO; +CIPR250T3; +DRIS50002 PO; +FERR325T3 PO; +HYOS125TA PO; +LORA0.5T11 PO; +MOME50SP2; +MORP20SO3 PO; +MULTLIQ7 PO; +RANI300T PO; +TRAM50TA2 PO; +VITA-110 PO; +VITA1CAP40; +VITMTA PO; +XYZA5TAB2 PO; +[UNRECOGNIZED DRUG - OTHER]
[2017-04-09 15:57] LABS: MEAN CORPUSCULAR HEMOGLOBIN 28.7 pg (27.0-33.0); MEAN CORPUSCULAR HGB CONC 31.9 g/dl (32.0-36.5); MEAN CORPUSCULAR VOLUME 89.8 fl (80.0-96.0); PLATELET COUNT, AUTOMATED 229 10^3/uL (150-450); RED CELL DISTRIBUTION WIDTH 15.9 % (11.5-14.5); WHITE BLOOD COUNT 13.6 10^3/uL (4.0-10.0)
[2017-04-09 16:33] LABS: FREE T4 1.27 NG/DL (0.76-1.46)
[2017-04-09 17:49] LABS: ADD MANUAL DIFFER YES; DIFF SLIDE NUMBER 283; PLT CLUMPS? POS FLAG; POS COUNT POS FLAG; POSITIVE DIFF POS FLAG
[2017-04-09 17:54] LABS: EOSINOPHILS 2 % (0-5)
== END ==
LOC: M SFHCPLAZ 11:36
PROVIDERS: ATTEND Family Medicine
DX: R05 Cough (principal); D50.0 Iron deficiency anemia secondary to blood loss (chronic); R94.6 Abnormal results of thyroid function studies

== ENCOUNTER 2017-04-12 12:02 | Inpatient (IN) | payer MEDICARE, OTHER ==
[~2017-04-12] VITALS: Ht 165.1 cm; Wt 65.2 kg
[~2017-04-12 12:02] MED LIST changes: -ACET65SU PR; -ASPI1TAB PO; +ASPIRIN 81 MG ENTERIC TAB PO SCH; -B-12100010 PO; -BACITAB PO; -CIPR250T3; -DRIS50002 PO; -FERR325T3 PO; -HYOS125TA PO; -LORA0.5T11 PO; -MOME50SP2; -MORP20SO3 PO; -MULTLIQ7 PO; -RANI300T PO; -TRAM50TA2 PO; -VITA-110 PO; -VITA1CAP40; -VITMTA PO; -XYZA5TAB2 PO; -[UNRECOGNIZED DRUG - OTHER]
[2017-04-12] MEDS ORDERED: TRAM50TA2 PO (12:37)
[2017-04-12] MEDS ORDERED: VITA1CAP40 (12:37)
[2017-04-12] MEDS ORDERED: [UNRECOGNIZED DRUG - OTHER] (12:37)
[2017-04-12] MEDS ORDERED: CIPR250T3 (12:37)
[2017-04-12] MEDS ORDERED: RANI300T PO (12:37)
[2017-04-12] MEDS ORDERED: MULTLIQ7 PO (12:37)
[2017-04-12] MEDS ORDERED: VITA-110 PO (12:37)
[2017-04-12] MEDS ORDERED: NS 500 ML IV ONE (13:45)
[2017-04-12 13:50] LABS: BASO % 0.2 % (0.0-1.0); EOS % 0.2 % (0.0-3.0); IMMATURE GRANULOCYTE % 0.6 % (0-0); LYMPH # 2.4 10^3/uL (1.5-4.5); LYMPH % 14.9 % (24.0-44.0); MEAN CORPUSCULAR HEMOGLOBIN 28.7 pg (27.0-33.0); MEAN CORPUSCULAR HGB CONC 32.6 g/dl (32.0-36.5); MEAN CORPUSCULAR VOLUME 87.9 fl (80.0-96.0); MONO # 1.4 10^3/uL (0.0-0.8); MONO % 8.6 % (0.0-5.0); NEUTROPHILS # 12.2 10^3/uL (1.8-7.7); NEUTROPHILS % 75.5 % (36.0-66.0); PLATELET COUNT, AUTOMATED 232 10^3/uL (150-450); RED CELL DISTRIBUTION WIDTH 15.9 % (11.5-14.5); WHITE BLOOD COUNT 16.2 10^3/uL (4.0-10.0)
[2017-04-12 13:53] LABS: INR 1.2
[2017-04-12 14:00] LABS: ALBUMIN 2.2 GM/DL (3.2-5.2); ALBUMIN/GLOBULIN RATIO 0.45 (1.00-1.93); ALKALINE PHOSPHATASE 73 U/L (45-117); ALT/SGPT 23 U/L (12-78); ANION GAP 6 MEQ/L (8-16); AST/SGOT 30 U/L (15-37); BILIRUBIN,DIRECT 0.1 MG/DL (0.0-0.2); BILIRUBIN,TOTAL 0.4 MG/DL (0.2-1.0); BLOOD UREA NITROGEN 19 MG/DL (7-18); CALCIUM LEVEL 8.5 MG/DL (8.8-10.2); CARBON DIOXIDE LEVEL 28 MEQ/L (21-32); CHLORIDE LEVEL 105 MEQ/L (98-107); CREATININE FOR GFR 0.82 MG/DL (0.70-1.30); GLOMERULAR FILTRATION RATE > 60.0 (>35); GLUCOSE, FASTING 114 MG/DL (83-110); POTASSIUM SERUM 4.4 MEQ/L (3.5-5.1); SODIUM LEVEL 139 MEQ/L (136-145); TOTAL PROTEIN 7.1 GM/DL (6.4-8.2)
[2017-04-12] MEDS ORDERED: ISOVUE-370 76% 100ML VIAL (Q9967) As Ordered ONE (14:13)
--- NOTE | 2017-04-12 14:47 | REP ---
Chest semi upright AP and lateral views: Comparison is 03/05/2017. There are no infiltrates or effusions. Cardiac size appears enlarged although there is magnification from positioning. On the lateral view I cannot rule out an anterior pneumothorax, however this could be artifact from radiographic technique. The danielle, mediastinum, bony thorax are unremarkable. Signed by Zach Boogie MD 04/12/2017 02:39 P
[2017-04-12] MEDS ORDERED: ACETAMINOPHEN 650 MG SUPP PR ONE (15:15)
--- NOTE | 2017-04-12 15:49 | REP ---
CT of the brain without IV contrast: Comparisons are the CT of the brain dated 11/16 2016 and 01/22/2009 as well as brain MRIs of 01/22/2009 and 11/16/2016. There is no hemorrhage. There is no edema, mass effect or midline shift. The cortical stripe is normally maintained. There is mild dilatation of the ventricles and sulci compatible with diffuse volume loss. This is unchanged. The visualized paranasal sinuses and mastoids are unremarkable. Impression: There is no interval change. There is no hemorrhage, acute infarct or mass. There is moderate diffuse volume loss, unchanged. Signed by Zach Boogie MD 04/12/2017 03:40 P
--- NOTE | 2017-04-12 16:06 | REP ---
CT of the cervical spine: Axial images are acquired with helical scanning and a reformatted in sagittal and coronal projections. Vertebral body heights and alignment are normal. The prevertebral soft tissues are normal. 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 The facets are normally aligned. There is advanced degenerative disc disease at every cervical spine level. There is uncinate spurring encroaching the spinal canal on the left at C5 and C6 accompanied by mild bony foraminal encroachment on the left at C6. There is no fracture or listhesis. Impression: Advanced degenerative disc disease at every cervical spine level. Uncinate spurring encroaching the spinal canal on the left at C5 and C6. Bony foraminal encroachment on the left at C6. Advanced facet hypertrophy throughout the cervical spine from osteoarthritis. Recommend MRI follow-up. Signed by Zach Boogie MD 04/12/2017 03:58 P
--- NOTE | 2017-04-12 16:18 | REP ---
CT of the abdomen pelvis with IV contrast, without bowel contrast:Comparison is 11/23/2016.The visualized lung drake are unremarkable. The previous small bilateral pleural effusions have resolved.The hepatic parenchyma is homogeneous and unremarkable. The gallbladder and pancreas are unremarkable.There are large wedge shaped low density lesions in the spleen as an interval change compatible with splenic infarct. There are calcified granulomas in the spleen, unchanged.The adrenals are unremarkable.There is no hydronephrosis. There are parapelvic cysts in the right kidney. These are unchanged.The abdominal aorta is unremarkable.There is no bowel distension or obstruction. Pelvis:There is no ascites or adenopathy. There is a Saleh catheter in the urinary bladder and the bladder is mostly collapsed. However, I suspect there is a diverticulum anteriorly in the bladder. There is air within the diverticulum, likely a consequence of catheterization.There is a large fecal bolus in the rectal ampulla, possibly an impaction.There is no diverticulosis or diverticulitis. 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 Suspect there is a bladder diverticulum anteriorly that is a air-filled, likely a consequence of catheterization. Signed by Zach Boogie MD 04/12/2017 04:10 P
[2017-04-12] MEDS ORDERED: COLA100C5 PO (16:20)
[2017-04-12] MEDS ORDERED: DRIS50002 PO (16:20)
[2017-04-12] MEDS ORDERED: BACITAB PO (16:21)
[2017-04-12] MEDS ORDERED: ASPI1TAB PO (16:21)
[2017-04-12] MEDS ORDERED: VITMTA PO (16:22)
[2017-04-12] MEDS ORDERED: XYZA5TAB2 PO (16:23)
[2017-04-12] MEDS ORDERED: B-12100010 PO (16:24)
[2017-04-12] MEDS ORDERED: FERR325T3 PO (16:24)
[2017-04-12] MEDS ORDERED: MOME50SP2 (16:25)
[2017-04-12] MEDS ORDERED: LevoFLOXacin IV 750 MG in APPROPRIATE DILUENT 1 EA IV ONE (17:00)
[2017-04-12] MEDS ORDERED: ENOXAPARIN 100MG/1ML SYRINGE (J1650) SC ONE (19:00)
[2017-04-12] MEDS ORDERED: ENOXAPARIN 80 MG/0.8 ML SYRINGE (J1650) SC ONE (19:00)
[2017-04-12] MEDS ORDERED: D5W/0.9% SODIUM CHLORIDE 1,000 ML IV SCH (19:00)
--- NOTE | 2017-04-12 19:40 | REPUSA ---
HISTORY: ? INFILTRATE ? PTX. TECHNIQUE: Axial CT imaging of chest with coronal and sagittal reformatted imaging, without contrast. DLP= 358.4 mGy-cm. FINDINGS: There is very minimal atelectasis or fibrosis at the lung bases. No pulmonary mass lesions or acute alveolar infiltrates are seen to suspect pneumonia. No pneumothorax or significant pleural effusion is seen. Mediastinal windows demonstrate a small sliding hiatal hernia. No pathologically enlarged mediastina l or hilar lymphadenopathy is seen. Small calcified nodes is seen in the right perihilar region. Th ere is extensive calcification in the left LAD. Upper abdomen demonstrates bilateral nephrolithiasis, incompletely evaluated at this time. There is parapelvic cyst or possible hydronephrosis in the right kidney. IMPRESSION: 1. Minimal atelectasis or fibrosis at the lung bases, greatest in the left lower lobe. No segmental consolidation, pneumothorax, or pleural effusion is seen. 2. Calcification in the LAD. 3. Incomplete evaluation of bilateral nephrolithiasis in the upper abdomen. Clinical correlation and followup imaging may be warranted as clinically indicated.
[2017-04-12] MEDS: SERTRALINE HCL 25 MG TABLET PO SCH (19:59)
--- NOTE | 2017-04-12 20:19 | HPEPDOC ---
[facility] Medical History & Physical Date of Admission Apr 12, 2017 History and Physical PRIMARY CARE PROVIDER: Dr. oTmi Peraza ATTENDING: Dr. Karon Mcdowell CHIEF COMPLAINT: Slurred speech/left upper extremity weakness HISTORY OF PRESENT ILLNESS: This is a 82-year-old male with past medical history of CAD, TIA, BPH, hypertension, spinal stenosis, right DVT, depression, chronic Saleh with multiple UTIs who presents with slurred speech, left upper extremity weakness that started at 9 AM today. Family states that the patient's dysarthria slightly improved however still has left upper extremity weakness. Patient also complained of neck pain that's been progressive over the past few months. He has a history of spinal stenosis that has been severe in the lumbar spine with the family and the patient refusing surgery in the past. Family states that even if the patient has severe cervical stenosis, they would not want to surgical intervention. The patient also had complained of abdominal pain that's been nonspecific. It appears that the patient has pelvic fractures on the CT abdomen and pelvis. Dr. Gomez had spoken to Dr. Lama who recommends anticoagulating the patient with either heparin or Lovenox, with no surgical intervention at this time. PAST MEDICAL HISTORY: As per HPI PAST SURGICAL HISTORY: Bilateral cataracts, cystocele with left ureter stents, bilateral shunts for glaucoma, TURP, left shoulder surgery, hernia repair SOCIAL HISTORY: Former smoker quit 20 years ago, no alcohol or illicit drug use. FAMILY HISTORY: Noncontributory ALLERGIES: Please see below. REVIEW OF SYSTEMS: HEENT: Denies sore throat/headache CARDIOVASCULAR: Denies chest pain/palpitations RESPIRATORY: Denies shortness of breath/cough GASTROINTESTINAL: denies nausea/vomiting GENITOURINARY: Denies dysuria/urinary urgency. MUSCULOSKELETAL: Denies myalgias/arthralgias NEUROLOGICAL: LUE weakness. Dysarthria HOME MEDICATIONS: Please see below. PHYSICAL EXAMINATION: Vitals: (see below) General: No acute distress, laying comfortably in bed. HEENT: Moist mucous membranes. Neck: No JVD or lymphadenopathy Cardiac: RRR, No murmurs Pulm: Clear to auscultation b/l. No wheezing, rhonchi Abd: NT/ND + BS Ext: No edema or cyanosis Neuro: Strength 5/5 BLE and 5/5 RUE, 2-3/5 LUE. CN 2-12 intact, with the exception of dysarthria and expressive aphasia. Pronator drift - left upper ext. LABORATORY DATA: See below. IMAGING: CT Chest 04/12/17 IMPRESSION: 1. Minimal atelectasis or fibrosis at the lung bases, greatest in the left lower lobe. No segmental consolidation, pneumothorax, or pleural effusion is seen. 2. Calcification in the LAD. 3. Incomplete evaluation of bilateral nephrolithiasis in the upper abdomen. CT Abd/pelvis 04/12/17 Impression: Advanced degenerative disc disease at every cervical spine level. Uncinate spurring encroaching the spinal canal on the left at C5 and C6. Bony foraminal encroachment on the left at C6. Advanced facet hypertrophy throughout the cervical spine from osteoarthritis. Recommend MRI follow-up. CT Head 04/12/17 Impression: There is no interval change. There is no hemorrhage, acute infarct or mass. There is moderate diffuse volume loss, unchanged. CT abd/pelvis 04/12/17 Impression:There are findings compatible with splenic infarcts, not present previously.The previous bilateral pleural effusions have resolved.There is no hydronephrosis.Possible fecal impaction.Saleh catheter in the bladder. Suspect there is a bladder diverticulum anteriorly that is a air- filled, likely a consequence of catheterization. MRI Brain/Cervical Spine pending. MICROBIOLOGY: Please see below. ASSESSMENT/PLAN: 1. TIA/CVA - patient with dysarthria/left upper extremity weakness that occurred at [address] of the head (see above). MRI of the brain pending. History of TIAs. Echocardiogram pending. Carotid ultrasound pending. On aspirin/statin. Questionable whether patient has multiple embolic events from cardiac origin especially given his neuro symptoms in conjunction with his splenic infarct. Echocardiogram has been ordered to further evaluate. 2. Sepsis secondary to Complicated UTI the chronic Saleh- started on Levaquin. History of UTIs. Urine/blood cultures pending. Patient was febrile on presentation, with notable leukocytosis. 3. Neck pain likely secondary to chronic cervical spine stenosis. CT head (see above) sees. Dr. Gomez had spoken to neurosurgery with recommendations for MRI cervical spine. Family states that even if surgery was recommended, they would not want to proceed with it. 4. 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 Lama with recommendations for anticoagulation with heparin/Lovenox with no surgical intervention at this time. 5. History of hypertension continue meds 6. History of right DVT 7. CAD status post PCI continue home meds 8. History of depression DVT Prophy - enoxaparin Patient followed by Dr. Karon Mcdowell starting 04/13/17 at 7 AM Vital Signs Vital Signs Date Time Temp Pulse Resp B/P (MAP) Pulse Ox O2 Delivery O2 Flow Rate FiO2 04/12/17 17:25 101.9 04/12/17 17:21 94 Nasal Cannula 2.0 04/12/17 17:17 90 04/12/17 16:32 18 Laboratory Data Labs 24H Laboratory Tests 2 04/12/17 12:51: Immature Granulocyte % (Auto) 0.6H, White Blood Count 16.2H, Red Blood Count 3.63L, Hemoglobin 10.4L, Hematocrit 31.9L, Mean Corpuscular Volume 87.9, Mean Corpuscular Hemoglobin 28.7, Mean Corpuscular Hemoglobin Concent 32.6, Red Cell Distribution Width 15.9H, Platelet Count 232, Neutrophils (%) (Auto) 75.5H, Lymphocytes (%) (Auto) 14.9L, Monocytes (%) (Auto) 8.6H, Eosinophils (%) (Auto) 0.2, Basophils (%) (Auto) 0.2, Neutrophils # (Auto) 12.2H, Lymphocytes # (Auto) 2.4, Monocytes # (Auto) 1.4H, Eosinophils # (Auto) 0.0, Basophils # (Auto) 0.0, Immature Granulocyte # (Auto) 0.1H, Nucleated Red Blood Cells % (auto) 0.0, Prothrombin Time 15.4H, Prothromb Time International Ratio 1.20, Activated Partial Thromboplast Time 35.1, Anion Gap 6L, Glomerular Filtration Rate > 60.0 , Lactic Acid Level 1.3, Calcium Level 8.5L, Aspartate Amino Transf (AST/SGOT) 30, Alanine Aminotransferase (ALT/SGPT) 23, Alkaline Phosphatase 73, Total Bilirubin 0.4, Direct Bilirubin 0.1, Total Protein 7.1, Albumin 2.2L, Albumin/ Globulin Ratio 0.45L, Lipase 171 04/12/17 15:44: Urine Appearance CLOUDYH, Urine Color YELLOW, Urine pH 6.0, Urine Specific [place] 1.051, Urine Protein NEGATIVE, Urine Glucose (UA) NEGATIVE, Urine Ketones NEGATIVE, Urine Urobilinogen 0.2, Urine Bilirubin NEGATIVE, Urine Leukocyte Esterase 3+H, Urine Blood 2+H, Urine Nitrite NEGATIVE, Urine WBC (Auto ) TNTCH, Urine RBC (Auto) 61H, Urine Hyaline Casts (Auto) 0, Urine Bacteria ( Auto) 3+H, Urine Squamous Epithelial Cells 0, Urine Sperm (Auto) 04/12/17 18:50: Total Creatine Kinase 54, Creatine Kinase MB 1.0, Creatine Kinase MB Relative Index 1.85, Troponin I 0.09 CBC/BMP Laboratory Tests 04/12/17 12:51 Red Blood Count 3.63 L, Mean Corpuscular Volume 87.9, Mean Corpuscular Hemoglobin 28.7, Mean Corpuscular Hemoglobin Concent 32.6, Red Cell Distribution Width 15.9 H, Neutrophils (%) (Auto) 75.5 H, Lymphocytes (%) (Auto ) 14.9 L, Monocytes (%) (Auto) 8.6 H, Eosinophils (%) (Auto) 0.2, Basophils (%) (Auto) 0.2, Neutrophils # (Auto) 12.2 H, Lymphocytes # (Auto) 2.4, Monocytes # ( Auto) 1.4 H, Eosinophils # (Auto) 0.0, Basophils # (Auto) 0.0 Microbiology Microbiology 04/12/17 Blood Culture, Received Pending 04/12/17 Blood Culture, Received Pending 04/12/17 Influenza Virus Type A Antigen - Final, Complete 04/12/17 Influenza Virus Type B Antigen - Final, Complete Home Medications Scheduled (Mometasone Furoate) 50 Mcg/Act Spr, 2 SPRAYS NA DAILY Aspirin (Aspirin 81) 81 Mg Tab, 81 MG PO DAILY Carvedilol (Carvedilol) 6.25 Mg Tab, 6.25 MG PO QHS Cyanocobalamin (B-12) 1,000 Mcg Cap, 1,000 MCG PO DAILY Docusate Sodium (Colace) 100 Mg Cap, 100 MG PO QHS Doxazosin Mesylate (Doxazosin) 2 Mg Tab, 2 MG PO DAILY Ferrous Sulfate (Ferrous Sulfate) 325 Mg Tab, 325 MG PO DAILY Lactobacillus Acidophilus (Bacid) 1 Tab Tab, 1 TAB PO DAILY Levocetirizine Dihydrochloride (Xyzal) 5 Mg Tab, 5 MG PO QHS Losartan Potassium (Losartan Potassium) 50 Mg Tab, 50 MG PO QHS Multivitamins *[facility] STOCKED* (Thera M Plus *[facility] STOCKED*) 1 Tab Tab, 1 TAB PO DAILY Ranitidine HCl (Ranitidine HCl) 300 Mg Tab, 1 TAB PO QHS Sertraline Hcl (Sertraline HCl) 25 Mg Tab, 25 MG PO DAILY Simvastatin (Simvastatin) 20 Mg Tab, 20 MG PO DAILY Tamsulosin Hydrochloride (Flomax) 0.4 Mg Cap, 0.4 MG PO QHS Vitamin D (Drisdol) 50,000 Unit Cap, 50,000 UNIT PO QWEEK FRIDAY Scheduled PRN Tramadol HCl (Tramadol HCl) 50 Mg Tab, 50 MG PO BID PRN for PAIN Allergies Coded Allergies: Penicillins (Verified Allergy, Severe, 02/06/17) Penicillins Cross Reactors (Verified Allergy, Severe, 02/06/17) STEPHIE SCRUGGS MD Apr 12, 2017 20:19
[2017-04-12 21:00] VITALS: BP 133/66
[2017-04-12] MEDS: TAMSULOSIN 0.4 MG CAP PO SCH (21:00)
[2017-04-12] MEDS ORDERED: LOSARTAN 50 MG TAB PO SCH (21:00)
[2017-04-12] MEDS ORDERED: CARVedilol 6.25 MG TAB PO SCH (21:00)
[2017-04-12] MEDS: DOCUSATE SODIUM 100 MG CAP PO SCH (21:00)
[2017-04-12] MEDS: FAMOTIDINE 20 MG TAB PO SCH (21:00)
[2017-04-12] MEDS ORDERED: ATORVASTATIN 20 MG TAB PO SCH (21:00)
--- NOTE | 2017-04-12 22:30 | REPUSA ---
HISTORY: SLURRED SPEECH LEFT UPPER ARM WEAKNESS. TECHNIQUE: Multisequence, multiplanar MRI imaging of brain without contrast. FINDINGS: Diffusion weighted imaging demonstrates a large regional territorial area of restricted dif fusion in the right posterior parietal lobe measuring approximately 5.1 x 3.2 cm, consistent with acu te infarction. There is no evidence of intracranial hemorrhage, or of midline shift. The ventricles and sulci are otherwise enlarged consistent with generalized cerebral atrophy. No oth er mass is seen in the brain. There is normal flow-void seen in the bilateral internal carotid arter ies. Orbits, optic nerves, pituitary gland, paranasal sinuses, and CP angle regions are normal. IMPRESSION: 1. Acute infarct in territorial distribution of the right posterior parietal lobe, witho ut evidence of intracranial hemorrhage or midline shift. 2. Some degree of generalized cerebral atrophy with no other lesions identified in the brain. This report is being called stat to the facility at 10:28 PM on 04/12/17.
[2017-04-12] MEDS ORDERED: LORazepam 2 MG/ML VIAL (J2060) IV STA (22:49)
[2017-04-13] VITALS (7 sets, daily range): BP systolic 106–152; BP diastolic 56–70
[2017-04-13] MEDS: ACETAMINOPHEN 650 MG SUPP PR PRN ×2 (01:59→07:53)
--- NOTE | 2017-04-13 02:10 | REPUSA ---
PROCEDURE: MRI CERVICAL SPINE. REASON FOR EXAM: Neck pain. TECHNIQUE: Axial and sagittal T1 and T2 weighted images were obtained. Fat suppressed images were als o obtained. COMPARISON: None. FINDINGS: Moderate diffuse spondylotic changes. Findings are demonstrated by diffuse disc dehydration, disc space narrowing, osteophyte formation and degenerative endplate changes. Bilateral facet joint arthropathy and degenerative uncovertebral joint disease. There is normal signal intensity from the visualized bone marrow without evidence of replacement or a cute fracture. The visualized portions of the spinal cord are unremarkable. The visualized portions of the posterior fossa are unremarkable. There is normal cervical lordosis. Evaluation of the individual levels revealed the following: C2-C3: There is a 0.4 mm retrolisthesis of C2 on C3. Mild diffuse disc bulge and posterior osteophyte formation. The spinal canal is not narrowed. There is mild right and moderate left neural foramina n arrowing. C3-C4: There is 4.2 mm retrolisthesis of C3 on C4. Moderate diffuse disc bulge and posterior osteophy te formation. Superimposed broad-based left paracentral/posterolateral disc protrusion measuring 4.2 mm in its largest anteroposterior dimension. The spinal canal is moderately narrowed. The narrowest a nteroposterior dimension measures 4.9 mm. There is moderate to severe bilateral neural foramina narro wing. C4-C5: There is mild diffuse disc bulge and posterior osteophyte formation. The spinal canal is not n arrowed. There is moderate bilateral neural foramina narrowing. C5-C6: There is mild diffuse disc bulge and posterior osteophyte formation. Superimposed broad-based left posterolateral disc protrusion. The spinal canal is not narrowed. There is mild bilateral neural foramina narrowing. C6-C7: There is mild diffuse disc bulge and posterior osteophyte formation. The spinal canal is not n arrowed. There is mild right and severe left neural foramina narrowing. C7-T1: There is mild diffuse disc bulge and posterior osteophyte formation. The spinal canal is not n arrowed. There is mild bilateral neural foramina narrowing. Impression: Spondylosis. Multilevel degenerative disc disease.
--- NOTE | 2017-04-13 03:10 | REPUSA ---
CLINICAL HISTORY: Stroke. TECHNIQUE: Three dimensional [id number] angiography is performed of the [place]. The ramsey dy was performed without IV contrast agent. FINDINGS: Normal bilateral petrous carotid arteries. Normal right cavernous carotid artery with a normal suprac linoid bifurcation. Normal left cavernous carotid artery with a normal supraclinoid bifurcation. Normal right A1 segments of the anterior cerebral artery. Normal left A1 segments of the anterior cer ebral artery. Normal intact anterior communicating artery (ACOM). Normal bilateral A2 segments of the anterior cerebral arteries. Normal right M1 and M2 segments of the middle cerebral arteries, with a normal M1 bifurcation. Normal left M1 and M2 segments of the middle cerebral arteries, with a normal M1 bifurcation. Normal right posterior communicating artery (PCOM). Normal left posterior communicating artery (PCOM) . Normal bilateral vertebral arteries. Normal basilar artery with a normal basilar bifurcation. The vis ualized bilateral superior cerebellar (SCA) arteries are normal. Normal bilateral P1, P2 and visualized P3 segments of the posterior cerebral arteries. There is no demonstrated aneurysm of the [place]. There is no major vessel occlusion or hemo dynamically significant stenosis. IMPRESSION: MRA of the [place] is within normal limits. Thank you for your kind referral of this patient.
[2017-04-13] MEDS ORDERED: ENOXAPARIN 80 MG/0.8 ML SYRINGE (J1650) SC SCH (08:00)
--- NOTE | 2017-04-13 08:07 | ECGEPIP ---
Stationary ECG Study [facility] - ED Test Date: 2017-04-12 Pat Name: JOHN ALEGRE Department: Room: - Gender: M Legal Records Clerk: : [id number] Requested By: HILDA Arellano Order Number: [id number] Reading MD: Karime Pink Measurements Intervals [place] Rate: 87 P: 61 VA: 170 QRS: 22 QRSD: 129 T: 17 QT: 371 QTc: 449 Interpretive Statements SINUS RHYTHM LEFT BUNDLE BRANCH BLOCK INCREASED RATE 11/16/16 Electronically Signed On 04-13-2017 8:06:49 EDT by Karime Pink
[2017-04-13] MEDS: MULTIVITAMINS/MINERALS THERAP 1 TAB PO SCH (09:00)
[2017-04-13] MEDS: LACTOBACILLUS ACIDOPHILUS CAP (BACID) PO SCH (09:00)
[2017-04-13] MEDS ORDERED: LevoFLOXacin IV 500 MG in APPROPRIATE DILUENT 1 EA IV SCH (09:00)
[2017-04-13] MEDS: CYANOCOBALAMIN 500 MCG TAB PO SCH (09:00)
[2017-04-13] MEDS: SERTRALINE HCL 25 MG TABLET PO SCH (09:00)
[2017-04-13] MEDS ORDERED: SIMVASTATIN 20 MG TAB PO SCH (09:00)
[2017-04-13] MEDS: FERROUS SULFATE 325MG TAB PO SCH (09:00)
--- NOTE | 2017-04-13 09:18 | REP ---
Bilateral carotid artery duplex ultrasound: Peak flow velocity analysis: RIGHT LEFT ICA Peak flow velocity cm/sec 56 53 ICA Diastolic flow velocity cm/sec 18 14 ICA/CCA Ratio 0.51 1.0 ECA Peak flow velocity cm/sec 38 66 CCA Peak flow velocity cm/sec 69 53 There is a shallow atheromatous plaque at the origins of the internal carotid arteries and external carotid arteries bilaterally. The peak flow velocities are normal bilaterally. There is no stenosis on the right or the left. There is antegrade flow in the vertebral arteries bilaterally. Signed by Zach Boogie MD 04/13/2017 08:35 A
[2017-04-13 09:36] LABS: MEAN CORPUSCULAR HGB CONC 33.3 g/dl (32.0-36.5); PLATELET COUNT, AUTOMATED 220 10^3/uL (150-450); RED CELL DISTRIBUTION WIDTH 15.9 % (11.5-14.5); WHITE BLOOD COUNT 14.2 10^3/uL (4.0-10.0)
[2017-04-13 09:53] LABS: ADD MANUAL DIFFER YES; DIFF SLIDE NUMBER 91; POSITIVE DIFF POS FLAG
[2017-04-13 10:03] LABS: BASOPHILS 1 % (0-4)
[2017-04-13 10:04] LABS: ANISOCYTOSIS 1+
[2017-04-13 10:05] LABS: ALKALINE PHOSPHATASE 61 U/L (45-117); ALT/SGPT 20 U/L (12-78); ANION GAP 7 MEQ/L (8-16); AST/SGOT 27 U/L (15-37); BILIRUBIN,TOTAL 0.5 MG/DL (0.2-1.0); BLOOD UREA NITROGEN 20 MG/DL (7-18); CALCIUM LEVEL 7.8 MG/DL (8.8-10.2); CARBON DIOXIDE LEVEL 25 MEQ/L (21-32); CHLORIDE LEVEL 108 MEQ/L (98-107); CREATININE FOR GFR 0.73 MG/DL (0.70-1.30); GLOMERULAR FILTRATION RATE > 60.0 (>35); GLUCOSE, FASTING 115 MG/DL (83-110); MAGNESIUM LEVEL 1.9 MG/DL (1.8-2.4); PHOSPHORUS LEVEL 2.5 MG/DL (2.5-4.9); POTASSIUM SERUM 3.9 MEQ/L (3.5-5.1); SODIUM LEVEL 140 MEQ/L (136-145)
[2017-04-13] MEDS: VANCOMYCIN HCL 1,000 MG, VIAL MATE ADAPTER 1 EACH in D5W 250 ML IV SCH ×2 (11:13→22:24)
[2017-04-13] MEDS: ASPIRIN 300 MG SUPP PR SCH (12:16)
[2017-04-13] MEDS: ENOXAPARIN 80 MG/0.8 ML SYRINGE (J1650) SC SCH (12:17)
--- NOTE | 2017-04-13 13:57 | IPNPDOC ---
Text Note Date of Service The patient was seen on 04/13/17. NOTE Subjective: Patient is an 82 year old male with a PMHx of CAD, HTN, TIA, Hx of DVT , Spinal stenosis, Depression, BPH, and Chronic Saleh catheter with Hx of Multiple UTIs who presented to the ER with slurred speech and L UE weakness that started at 9 AM on 04/12. The patient was noted to have an acute stroke on MRI and also had splenic infarction on CT abdomen. Dr. Gomez discussed with Dr. Lama who has recommended anticoagulation with Loevnox, no surgical intervention was advised at the time. Patient was seen and examined at the bedside. Currently he appears lethargic, and remains non-verbal. Objective: Vitals (See below) General: Lying in bed, no acute distress, Lethargic HEENT: NC, AT CVS: RRR, +S1S2 Lungs: Fair air entry b/l, -w/r/r Abdomen: Soft, ND, NT Extremities: - Edema, - Calf tenderness Assessment and plan: Acute metabolic encephalopathy - possibly 2/2 acute CVA, possibly 2/2 sepsis - See below Slurred speech / LUE weakness - likely 2/2 acute ischemic CVA - possibly 2/2 embolic phenomenon - Presented with slurred speech and LUE weakness - MRI Brain 04/12: Acute infarct in territorial distribution of the R posterior parietal lobe, some degree of generalized cerebral atrophy - MRA Brain 04/12: Negative - MRI Cervical Spine 04/13: Spondylosis. Multilevel degenerative disc disease - Carotid duplex US: Negative for stenosis bilaterally - ECHO to be done - will change to STAT - Increased ASA from 81 to 325, Increased Atorvastatin from 20 to 40 - Discussed case with Neurology (Dr. Wynn); will be on consult Sepsis - possibly 2/2 acute bacterial meningitis, possibly 2/2 urinary tract infection 2/2 chronic indwelling Saleh catheter - Presented with fever and neck pain, and Hx of multiple UTIs in the past - Blood culture 04/12: 1 of 2 bottle positive for Gram Positive Cocci in chains - CT chest 04/12: minimal atelectasis / fibrosis at lung bases, greatest in LLL , no consolidation / pneumothorax / effusion; calcification of LAD - Repeated blood culture set today - Discussed with Pharmacy given Penicillin allergy, will start Vancomycin and Meropenem for coverage of Bacterial Meningitis (including Listeria) - c/w Vancomycin and Meropenem (Day #1) - Will start IV fluid hydration with NS Splenic infarction - possibly 2/2 embolic phenomenon - Initially reported generalized abdominal pain - CT ab/pelvis 04/12: Splenic infarction, resolution of bilateral pleural effusions, no hydronephrosis, possible fecal impaction, Saleh catheter, Bladder diverticulum - Case was discussed between Dr. Gomez and Dr. Lama; Recommended anticoagulation with Lovenox / Heparin; No surgical intervention was requried at the time - c/w Lovenox therapeutic Neck pain - possibly 2/2 chronic cervical spine stenosis, possibly 2/2 acute bacterial meningitis - Family has indicated that they don't want any surgical intervention if required HTN - allow permissive hypertension, between 140-180 - Will hold Lisinopril and Carvedilol Hx of Right LE DVT CAD s/p PCI - Increased ASA and Atorvastatin Chronic Saleh catheter with Hx of Multiple UTIs BPH - Hold Tamsulosin (re: no PO meds 2/2 lethargy) Depression - Hold Sertraline (re: no PO meds 2/2 lethargy) GERD - Hold Famotidine (re: no PO meds 2/2 lethargy) - Start Protonix IV DVT prophylaxis - on full anticoagulation with Lovenox Code Status: - DNR / DNI - Patient has noted that he does not want PEG tube as per [facility] Disposition: - c/w adjusted antibiotics - Neurology consultation - Discussed with family about poor prognosis VS,Torobone, I+O VS, Fishbone, I+O Laboratory Tests 04/13/17 09:27 Red Blood Count 3.24 L, Mean Corpuscular Volume 87.0, Mean Corpuscular Hemoglobin 29.0, Mean Corpuscular Hemoglobin Concent 33.3, Red Cell Distribution Width 15.9 H, Monocytes # (Auto) 04/13/17 09:28 Calcium Level 7.8 L, Phosphorus Level 2.5, Aspartate Amino Transf (AST/SGOT) 27 , Alanine Aminotransferase (ALT/SGPT) 20, Alkaline Phosphatase 61, Total Bilirubin 0.5, Total Protein 6.0 L, Albumin 2.0 L Vital Signs Date Time Temp Pulse Resp B/P (MAP) Pulse Ox O2 Delivery O2 Flow Rate FiO2 04/13/17 12:22 Nasal Cannula 2.0 04/13/17 07:30 101.5 76 76 112/56 (06) 95 I&O- Last 24 Hours up to 6 AM 04/14/17 06:00 Intake Total 0 ml Balance 0 ml MAIRA VALENTE MD Apr 13, 2017 13:57
[2017-04-13] MEDS: NS 1,000 ML IV SCH (14:50)
[2017-04-13] MEDS: PANTOPRAZOLE 40MG INJ (PROTONIX) (C9113) IV SCH (14:50)
[2017-04-13] MEDS: MEROPENEM INJ 2 GM in NS 100 ML IV SCH (15:15)
--- NOTE | 2017-04-13 15:32 | PHACANCOPD ---
PHARMACY VANCOMYCIN DOSING Pt Demographics Demographics Patient Age:82 , Weight:62.700 , Gender: male Adjusted Body Weight Date: 04/13/17, Adjusted Body Weight: [NA] Kg Events Past 24 Hours Events Past 24 Hours: YES: Fever, Elevation in WBC, NO: Dialysis, Diuretic Therapy, Change in CrCl, Pending Diagnostics, Pending Procedures, Other Vancomycin Vancomycin indication: coverage for MRSA Vancomycin Target Ranges: 15-20 mcg/ml Vancomycin Load Y/N: Yes Load Dose Date Time Vancomycin Load Dose: 1000mg Date: 04/13 Time: 10:00, 16:00 Vancomycin Dose Date: 04/13/17. Current Vancomycin Dose: [1g IV q12h @22] Intermittent Dosing?: No Labs Labs Item Value Date Time White Blood Count 16.2 10^3/uL H 04/12/17 1251 White Blood Count 14.2 10^3/uL H 04/13/17 0927 Creatinine 0.73 MG/DL 04/13/17 0928 Creatinine 0.82 MG/DL 04/12/17 1251 Vital Signs Label Value Date Time Patient Temperature 101.5 degrees F 04/13/17 0730 Temperature Source Rectal 04/13/17 0730 Patient Temperature 99.5 degrees F 04/13/17 0400 Temperature Source Temporal 04/13/17 0400 Patient Temperature 98.8 degrees F 04/13/17 0215 Temperature Source Temporal 04/13/17 0215 Patient Temperature 100.8 degrees F 04/13/17 0015 Temperature Source Temporal 04/13/17 0015 Micro Microbiology 04/13/17 Blood Culture, Received Pending 04/13/17 Blood Culture, Received Pending 04/12/17 Blood Culture, Received Pending 04/12/17 Blood Culture - Preliminary, Resulted 04/12/17 Influenza Virus Type A Antigen - Final, Complete 04/12/17 Influenza Virus Type B Antigen - Final, Complete 04/13/17 Urine Culture, Received Pending 04/12/17 Urine Culture, Received Pending Creatinine Clearance Date:04/13/17. Creatinine Clearance: [~60 ml/min]. Pending Labs Vanco trough scheduled 04/13 @09:00 Assessment and Plan Maintaining Current Dose?: Yes Reason for dose change: No Dose Change Pharmacist Note Pharmacist Note Date: 04/13/17. Pharmacist note: pt has been started on meropenem (previously on levaquin x2 doses) and vancomycin for sepsis secondary to complicated UTI - coverage for meningitis/listeria. Pt does not have a Hx of MRSA however was on vancomycin last in November 2016. I have resumed similar dosing with an increased loading dose (2g). I have a trough scheduled Friday morning barring any acute changes in renal function. Blood cultures from yesterday 06/24 was positive for G + cocci in pr ch; repeat blood cultures, MRSA and urine cultures are pending. We will continue to monitor and make adjustments as necessary. Rj Velasquez Pharm.D. Apr 13, 2017 15:32
[2017-04-13] MEDS ORDERED: VANCOMYCIN HCL 1,000 MG, VIAL MATE ADAPTER 1 EACH in D5W 250 ML IV ONE (16:00)
[2017-04-13] MEDS: TAMSULOSIN 0.4 MG CAP PO SCH (20:48)
[2017-04-13] MEDS: DOCUSATE SODIUM 100 MG CAP PO SCH (20:48)
[2017-04-13] MEDS: SIMVASTATIN 40 MG TAB PO SCH (20:49)
[2017-04-13] MEDS: FAMOTIDINE 20 MG TAB PO SCH (20:49)
[2017-04-14] VITALS: BP 133/65
[2017-04-14] MEDS: ENOXAPARIN 80 MG/0.8 ML SYRINGE (J1650) SC SCH ×2 (00:33→12:31)
[2017-04-14] MEDS: MEROPENEM INJ 2 GM in NS 100 ML IV SCH ×3 (00:33→14:50)
[2017-04-14] MEDS: ACETAMINOPHEN 650 MG SUPP PR PRN (01:34)
[2017-04-14 04:00] VITALS: BP 159/75
[2017-04-14 05:19] LABS: MEAN CORPUSCULAR HEMOGLOBIN 29.3 pg (27.0-33.0); MEAN CORPUSCULAR VOLUME 86.3 fl (80.0-96.0); PLATELET COUNT, AUTOMATED 208 10^3/uL (150-450); WHITE BLOOD COUNT 14.9 10^3/uL (4.0-10.0)
[2017-04-14 05:20] LABS: ADD MANUAL DIFFER YES; DIFF SLIDE NUMBER 69; POSITIVE DIFF POS FLAG
[2017-04-14 05:40] LABS: ALBUMIN 1.7 GM/DL (3.2-5.2); ALBUMIN/GLOBULIN RATIO 0.39 (1.00-1.93); ALKALINE PHOSPHATASE 55 U/L (45-117); ALT/SGPT 18 U/L (12-78); ANION GAP 7 MEQ/L (8-16); AST/SGOT 28 U/L (15-37); BILIRUBIN,TOTAL 0.6 MG/DL (0.2-1.0); BLOOD UREA NITROGEN 19 MG/DL (7-18); CALCIUM LEVEL 8.1 MG/DL (8.8-10.2); CARBON DIOXIDE LEVEL 25 MEQ/L (21-32); CHLORIDE LEVEL 108 MEQ/L (98-107); CREATININE FOR GFR 0.63 MG/DL (0.70-1.30); GLOMERULAR FILTRATION RATE > 60.0 (>35); GLUCOSE, FASTING 97 MG/DL (83-110); MAGNESIUM LEVEL 1.7 MG/DL (1.8-2.4); POTASSIUM SERUM 3.6 MEQ/L (3.5-5.1); SODIUM LEVEL 140 MEQ/L (136-145); TOTAL PROTEIN 6.1 GM/DL (6.4-8.2)
[2017-04-14 06:16] LABS: BASOPHILS 1 % (0-4); EOSINOPHILS 2 % (0-5)
[2017-04-14 06:17] LABS: ANISOCYTOSIS 1+
--- NOTE | 2017-04-14 07:39 | CR ---
DATE OF CONSULTATION: 04/13/2017 REFERRING PHYSICIAN: Dr. Hill Mills REASON FOR CONSULTATION: Slurred speech and left-sided weakness. HISTORY OF PRESENT ILLNESS: The patient is an 82-year-old man with history of coronary artery disease, right leg deep venous thrombosis (DVT), severe cervical and lumbosacral spinal stenosis who presented to [facility] with left-sided weakness. The patient has difficulty doing activities of daily living. His was helping him bath when she noted that he was not moving his left side of body. It is possible that he woke up with his symptoms. The patient has history of severe cervical and lumbosacral spinal stenosis and has refused surgery. He has difficulty ambulating. He has chronic back and neck pain. He feels tired all the time. He was being worked up for anemia. In August 2016 he was diagnosed with right leg deep venous thrombosis. He stopped taking Eliquis after 7 months on Friday this week. In January 2017 he had transurethral resection of prostate (TURP) for his enlarge prostate and had some bleeding complications and his Eliquis was held at that time. The patient has slurred speech as well since yesterday. He seemed to have left-sided neglect. There are no reports of urinary incontinence, falls or loss of consciousness. In the emergency department he was also found to have pelvic fractures and splenic infarct. PAST MEDICAL HISTORY: Coronary artery disease, History of DVT for which the patient was on Eliquis for 7 months and stopped this week. Hypertension. Severe cervical and lumbosacral spinal stenosis. Prostate enlargement and patient is status post TURP. Glaucoma. Hernia repair. SOCIAL HISTORY: Quit smoking 20 years ago. He denies alcohol or illicit drugs. FAMILY HISTORY: Noncontributory. REVIEW OF SYSTEMS: All systems were reviewed and were found to be noncontributory except as mentioned history present illness. CURRENT MEDICATIONS: - Aspirin 300 mg [place] daily - carvedilol 6.25 mg by mouth daily - vitamin B12 1000 mcg by mouth daily - doxazosin 2 mg by mouth daily - losartan 50 mg by mouth daily - Zantac 300 grams by mouth nightly - Zoloft 25 mg by mouth daily - simvastatin 20 mg by mouth daily - Flomax 0.4 mg by mouth nightly - ferrous sulfate 325 mg by mouth daily ALLERGIES: Penicillin. PHYSICAL EXAMINATION: Temperature 101.5, pulse 76, respiratory 20, blood pressure 112/56, 95% saturations on 2 liters nasal cannula oxygen. Heart: Regular rate and rhythm. Lungs: Clear to auscultation. Abdomen: Soft, nontender, nondistended. Neurological: Patient is awake, alert, oriented to self mostly. He is not able to tell me day, date, month, year, name of president or place. His speech is dysarthric. He has dense left-sided matt neglect. Strength in his left arm and leg is at least 4/5. His left plantar is upgoing. Gait could not be tested. Cerebellar examination could not be performed. Sensory examination could not be performed reliably. DIAGNOSTIC STUDIES: MRI scan of brain showed right parietal acute ischemic stroke. MRA of brain on my review showed occlusion of posterior division of right middle cerebral artery. Carotid ultrasound was unremarkable. His WBCs were 14.2 with a hemoglobin 9.4. His urinary urinalysis showed 3+ leukocyte esterase with too numerous WBCs and 3+ bacteria. ASSESSMENT: 1. Acute embolic right parietal ischemic stroke. 2. Urinary tract infection. 3. 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 4. History of right leg DVT in August 2016 for which the patient was on Eliquis and stopped this week. 5. Pelvic fracture. PLAN: 1. Continue aspirin 300 mg per rectum daily. 2. His overall prognosis is guarded. 3. Simvastatin 20 mg by mouth daily. 4. With treatment of his urinary tract infection, his delirium and confusion may slowly improve. 5. It is possible that the patient has an underlying hypercoagulable state for which may require anticoagulation long-term. He will be a fall risk, which will increase his risk of bleeding. He also has a pelvic fracture of undetermined age at this time. 6. Physical and occupational therapy once his mentation improved.
[2017-04-14 08:00] VITALS: BP 125/77
[2017-04-14] MEDS ORDERED: MAG SULF 1GM/100ML (MAG RUN) 1 GM in APPROPRIATE DILUENT 1 EA IV ONE (08:00)
[2017-04-14] MEDS: ASPIRIN 300 MG SUPP PR SCH (08:00)
[2017-04-14] MEDS: NS 1,000 ML IV SCH (08:04)
[2017-04-14] MEDS: SERTRALINE HCL 25 MG TABLET PO SCH (08:04)
[2017-04-14] MEDS: LACTOBACILLUS ACIDOPHILUS CAP (BACID) PO SCH (08:14)
[2017-04-14] MEDS: CYANOCOBALAMIN 500 MCG TAB PO SCH (08:15)
[2017-04-14] MEDS: MULTIVITAMINS/MINERALS THERAP 1 TAB PO SCH (08:15)
[2017-04-14] MEDS: FERROUS SULFATE 325MG TAB PO SCH (08:15)
[2017-04-14] MEDS ORDERED: MOXIFLOXACIN HCL 400 MG in APPROPRIATE DILUENT 1 EA IV SCH (09:00)
[2017-04-14] MEDS: VANCOMYCIN HCL 1,000 MG, VIAL MATE ADAPTER 1 EACH in D5W 250 ML IV SCH ×2 (10:44→21:53)
[2017-04-14 12:00] VITALS: BP 145/67
--- NOTE | 2017-04-14 14:13 | IPNPDOC ---
Text Note Date of Service The patient was seen on 04/14/17. NOTE Subjective: Patient is an 82 year old male with a PMHx of CAD, HTN, TIA, Hx of DVT , Spinal stenosis, Depression, BPH, and Chronic Saleh catheter with Hx of Multiple UTIs who presented to the ER with slurred speech and L UE weakness that started at 9 AM on 04/12. The patient was noted to have an acute stroke on MRI and also had splenic infarction on CT abdomen. Dr. Gomez discussed with Dr. Lama who has recommended anticoagulation with Loevnox, no surgical intervention was advised at the time. Patient was seen and examined at the bedside. Patient was able to converse today. He notes that he has some abdominal discomfort and neck pain. He denies any chest pain. Objective: Vitals (See below) General: Lying in bed, no acute distress, AAOx3 HEENT: NC, AT CVS: RRR, +S1S2 Lungs: Fair air entry b/l, -w/r/r Abdomen: Soft, ND, Left upper and lower quadrant tenderness Extremities: - Edema, - Calf tenderness Assessment and plan: s/p Acute metabolic encephalopathy - possibly 2/2 acute CVA, possibly 2/2 sepsis - See below Slurred speech / LUE weakness - likely 2/2 acute ischemic CVA - possibly 2/2 embolic phenomenon - Presented with slurred speech and LUE weakness - MRI Brain 04/12: Acute infarct in territorial distribution of the R posterior parietal lobe, some degree of generalized cerebral atrophy - MRA Brain 04/12: Negative - MRI Cervical Spine 04/13: Spondylosis. Multilevel degenerative disc disease - Carotid duplex US: Negative for stenosis bilaterally - Transthoracic ECHO with possible vegetation; discussed with Dr. Metcalf - c/w ASA 325, c/w Simvastatin 40 - Will go for speech and swallow evaluation today - Discussed case with Neurology (Dr. Wynn); will be on consult Sepsis - 2/2 gram positive bacteremia / Endocarditis - possibly 2/2 acute bacterial meningitis, possibly 2/2 urinary tract infection 2/2 chronic indwelling Saleh catheter - Presented with fever and neck pain, and Hx of multiple UTIs in the past - Blood culture 04/12 and 04/13: Gram Positive Cocci in chains - CT chest 04/12: minimal atelectasis / fibrosis at lung bases, greatest in LLL , no consolidation / pneumothorax / effusion; calcification of LAD - Vegetations on ECHO - Repeated blood culture set again today - c/w Vancomycin and Meropenem (Day #1) and fluid hydration with NS - Will consult Infectious disease for Endocarditis and possible cardiology for PADMA Splenic infarction - possibly 2/2 embolic phenomenon - Initially reported generalized abdominal pain - CT ab/pelvis 04/12: Splenic infarction, resolution of bilateral pleural effusions, no hydronephrosis, possible fecal impaction, Saleh catheter, Bladder diverticulum - Case was discussed between Dr. Gomez and Dr. Lama; Recommended anticoagulation with Lovenox / Heparin; No surgical intervention was required at the time - c/w Lovenox therapeutic Neck pain - possibly 2/2 chronic cervical spine stenosis, possibly 2/2 acute bacterial meningitis - Family has indicated that they don't want any surgical intervention if required HTN - allow permissive hypertension, between 140-180 - Will hold Lisinopril and Carvedilol Hx of Right LE DVT CAD s/p PCI - c/w ASA and Atorvastatin Chronic Saleh catheter with Hx of Multiple UTIs BPH - c/w Tamsulosin Depression - c/w Sertraline GERD - c/w Protonix IV DVT prophylaxis - on full anticoagulation with Lovenox Code Status: - DNR / DNI - Patient has noted that he does not want PEG tube as per [facility] Disposition: - c/w adjusted antibiotics - Discussed with family about poor prognosis - Will discuss with ID and Cardiology (possible PADMA) VS,Ruby, I+O VS, Ruby, I+O Laboratory Tests 04/14/17 05:08 Red Blood Count 3.07 L, Mean Corpuscular Volume 86.3, Mean Corpuscular Hemoglobin 29.3, Mean Corpuscular Hemoglobin Concent 34.0, Red Cell Distribution Width 16.0 H, Monocytes # (Auto) , Calcium Level 8.1 L, Aspartate Amino Transf (AST/SGOT) 28, Alanine Aminotransferase (ALT/SGPT) 18, Alkaline Phosphatase 55, Total Bilirubin 0.6, Total Protein 6.1 L, Albumin 1.7 L Vital Signs Date Time Temp Pulse Resp B/P (MAP) Pulse Ox O2 Delivery O2 Flow Rate FiO2 04/14/17 12:31 Nasal Cannula 2.0 04/14/17 12:00 99.0 71 18 145/67 (93) 97 MAIRA VALENTE MD Apr 14, 2017 14:13
[2017-04-14] MEDS: PANTOPRAZOLE 40MG INJ (PROTONIX) (C9113) IV SCH (14:49)
[2017-04-14 16:00] VITALS: BP 139/64
[2017-04-14] MEDS ORDERED: GENTAMICIN 100 MG in APPROPRIATE DILUENT 1 EA IV ONE (18:00)
--- NOTE | 2017-04-14 18:31 | ECHO ---
DATE OF PROCEDURE: 04/14/2017 REFERRING PHYSICIAN: Dr. Karon Mcdowell. INDICATION: Transient ischemic attack (TIA). HEIGHT: 165 cm WEIGHT: 62 kg DIMENSIONS: IVS 1.3 LV 4.2 LVPW 1.3 LA 3.5 Aorta 3.1 FINDINGS: The study is of fair technical quality. Left ventricle is normal size and systolic function with estimated LVEF 60-65%. I do not appreciate any segmental wall motion abnormalities. Right ventricle also appears grossly normal. Left and right atrium was poorly visualized but grossly appear normal. Aortic valve is sclerotic. The visualization was limited but on some views it appears that there is a mobile echodensity attached to the aortic cusps, but it is not completely reliable. Mitral valve also exhibits mild degenerative abnormalities. Tricuspid valve appears normal. Pulmonic valve was not well seen. No pericardial effusion is noted. Inferior vena cava is normal size. Aortic root appears normal, aortic arch and abdominal aorta were not well seen. Doppler interrogation of aortic valve reveals trivial stenosis (mean gradient is 13 mmHg) and approximately mild to moderate mitral aortic insufficiency. There is trace mitral insufficiency and trace tricuspid insufficiency. Calculated pulmonary artery pressure was on upper limits of normal values. Mitral inflow pattern and tissue Doppler imaging of mitral annulus reveal grade 1 diastolic dysfunction. CONCLUSIONS: 1. Study is of fair technical quality. 2. Normal LV size with grossly preserved LV systolic function and grade 1 diastolic dysfunction. 3. Sclerotic aortic valve with mild stenosis and approximately mild to moderate insufficiency. Cannot rule out presence of vegetations on aortic valve. 4. Degenerative abnormalities of mitral valve but no significant stenosis and trivial insufficiency. 5. Normal central venous pressure and probably normal pulmonary artery pressure. COMMENT: Study raises suspicion for potential vegetation on aortic valve. If clinically indicated transesophageal echocardiogram will provide much better anatomical resolution. [facility]
[2017-04-14 20:00] VITALS: BP 152/73
--- NOTE | 2017-04-14 20:13 | REP ---
HISTORY: Possible edema. COMPARISON: 04/12/2017 The technique utilized in obtaining the radiograph has magnified the cardiac silhouette and accentuated the interstitial markings. There is no significant change compared to the prior exam. There is cardiomegaly although magnified by technique. The lung drake are clear and unchanged. There is no change in the osseous structures. IMPRESSION: Cardiomegaly without evidence of acute cardiopulmonary disease. Signed by Jose Solitario DO 04/15/2017 05:34 P
[2017-04-14] MEDS: DOCUSATE SODIUM 100 MG CAP PO SCH (21:00)
[2017-04-14] MEDS: SIMVASTATIN 40 MG TAB PO SCH (21:00)
[2017-04-14] MEDS: TAMSULOSIN 0.4 MG CAP PO SCH (21:00)
--- NOTE | 2017-04-14 22:55 | CR ---
DATE OF CONSULTATION: 04/14/2017 INFECTIOUS DISEASE CONSULTATION Asked to consult by Dr. Mcdowell for evaluation of probable endocarditis with blood cultures positive for Streptococcus. HISTORY OF PRESENT ILLNESS: Mr. Peña is an 82-year-old gentleman who was brought in by his family due to slurred speech and left upper extremity weakness. The patient has a history of coronary artery disease, transient ischemic attack (TIA) and BPH, chronic Yun catheter with recurrent urinary tract infections (UTIs). Most recently, urine cultures were positive for Enterococcus (E) faecalis. He had been having a couple weeks of decreased appetite, anorexia and low grade fever. At one time, his daughter states he had a fever of 103. The patient states that he was also having difficulty with speech. He has been complaining of neck pain for about 1 week prior to admission with significant stiffness. He has a history of lumbar spinal stenosis. His family tried to give him Praveen-Muller, massage, heating pad with no resolution of the pain. He also was describing some abdominal pain, mostly in the left upper quadrant. He was brought into the emergency room. He had a temperature of 102.7. CT of the abdomen and pelvis showed a splenic infarct and pelvic fractures. The patient had an echocardiogram, which showed mild to moderate aortic insufficiency and questionable vegetation on the aortic valve. Blood cultures times four sets were growing gram positive cocci in chains and pairs consistent with streptococcus. Past medical history is significant for GERD Iron deficiency anemia SP transfusions twice this month Vitamin B12 deficiency BPH Depression Urinary retention chronic yun recurrent CAUTI Walker dependent, OA MEDICATIONS: - meropenem 2 grams IV every 8 hours - vancomycin 1 gram IV every 12 hours - Protonix 40 mg IV every 24 hours - Lovenox 70 mg subcu every 12 hours - cyanocobalamin 1000 mcg by mouth daily - ferrous sulfate 325 mg by mouth daily - probiotics one tablet by mouth daily - multivitamin one tablet daily - aspirin 300 mg daily - Tylenol as needed - Colace 100 mg by mouth nightly - Flomax 0.4 mg by mouth nightly - Zoloft 25 mg by mouth three times a day ALLERGIES: PENICILLIN - SEVERE. SOCIAL HISTORY: He quit smoking 20 years ago. He does not drink or use drugs. He lives with his daughter. He has five other children, all take care of him. He walks with a walker. He needs help taking care of himself. The patient has been more depressed since he lost his in June and moved in with his daughter in September. LABORATORY DATA: White count was 13.6 on admission, currently 14.9, hemoglobin 9, hematocrit 26.5, platelets 208, AST 20, ALT 18, alkaline phosphatase 55, total protein 6.1, albumin 1.7. Urinalysis has +3 leukocyte esterase, many white cells, 61 red blood cells. Blood cultures are positive for gram positive cocci in chains and pairs on 04/12/2017 two sets and 04/13/2017 two sets. Repeat blood cultures done on 04/14/2017 are pending. IMAGING STUDIES: Brain MRI 04/12/2017 shows [place] of [place] is within normal limits. No aneurysms, no occlusion or stenosis. Chest CT shows minimal atelectasis and fibrosis of the lung bases, greatest in the lower lobes. Calcification in the LAD. Bilateral nephrolithiasis. CT of the abdomen and pelvis shows findings compatible with splenic infarct, not present previously as compared to CT done in November 2016, bilateral pleural effusions have resolved and no hydronephrosis. Possible fecal impaction. Chest x-ray shows no infiltrates or effusions. PHYSICAL EXAMINATION: On physical exam, he is a frail elderly gentleman in no acute distress. Maximum temperature (T max) was 102.7 on admission and 100 yesterday, currently 98.6, pulse 73, respirations 20, blood pressure 139/64, oxygen saturation 99% on 2 liters nasal cannula. Oropharynx: Dry mucosa. He has an ulcer underneath his tongue, bleeding, possible bite. He has neck stiffness. No carotid bruits. Heart: Normal S1, S2 with a holosystolic murmur 2/6 best heard at the left lower sternal border. Lungs: Diminished at the bases but clear. No wheezes, rales or rhonchi. Abdomen: Soft, tender in the left upper quadrant. No hepatosplenomegaly. Extremities: No clubbing, cyanosis or edema. No calf tenderness. +2 dorsalis pedis pulses. No lesions to suggest endocarditis. No Janeway lesions. Neurologic Examination: Left upper extremity weakness, lower extremity seems symmetrical. Difficulty with speech, difficulty understanding and has a right facial droop. IMPRESSION: This is an 82-year-old gentleman who was admitted with a stroke with left-sided weakness and slurred speech, also with evidence of splenic infarct on CT of the abdomen done for evaluation of abdominal pain. He has positive blood cultures consistent with Streptococcus, possibly Enterococcus faecalis as he has had multiple urine cultures in the past with Enterococcus faecalis. His echocardiogram showed moderate aortic insufficiency and questionable vegetation on the aortic valve. This is all consistent with endocarditis, probably the infection started of urinary origin. His urine culture on 03/03/2017 was positive for Enterococcus faecalis and on 11/16/2016. PLAN: 1. Discontinue IV meropenem. 2. Start vancomycin and gentamicin for synergy for endocarditis. The patient will need treatment for 4 to 6 weeks. The patient is a very poor surgical candidate, and I am not sure there would be any need to do a transesophageal echocardiogram as no matter what the finding is, the family would not want to take him to the operating room or have surgery on the valve. Therefore, I would just suggest treatment medically. Repeat blood cultures today and tomorrow. If blood cultures are negative, a peripherally inserted central catheter (PICC) line could be inserted. I did discuss with the family the need for prolonged IV antibiotics. 3. Obtain C-reactive protein (CRP), sedimentation rate in the morning. Monitor for renal toxicity and otoxicity with combination medication. Unfortunately, we cannot use penicillin with severe allergy and therefore, will have to use two nephrotoxic drugs. MTDD
[2017-04-15] VITALS: BP 144/79
[2017-04-15] MEDS: ENOXAPARIN 80 MG/0.8 ML SYRINGE (J1650) SC SCH ×2 (00:08→12:35)
[2017-04-15] MEDS ORDERED: SLF 3 ML SYR IV PRN (02:30)
[2017-04-15 04:00] VITALS: BP 141/68
[2017-04-15 05:36] LABS: BASO % 0.3 % (0.0-1.0); EOS # 0.3 10^3/uL (0.0-0.50); EOS % 2.1 % (0.0-3.0); IMMATURE GRANULOCYTE % 0.5 % (0-0); LYMPH # 1.8 10^3/uL (1.5-4.5); LYMPH % 14.8 % (24.0-44.0); MEAN CORPUSCULAR HGB CONC 33.7 g/dl (32.0-36.5); MEAN CORPUSCULAR VOLUME 86.1 fl (80.0-96.0); MONO # 1.4 10^3/uL (0.0-0.8); MONO % 11.8 % (0.0-5.0); NEUTROPHILS # 8.6 10^3/uL (1.8-7.7); NEUTROPHILS % 70.5 % (36.0-66.0); PLATELET COUNT, AUTOMATED 224 10^3/uL (150-450); RED CELL DISTRIBUTION WIDTH 15.9 % (11.5-14.5); WHITE BLOOD COUNT 12.2 10^3/uL (4.0-10.0)
[2017-04-15 05:52] LABS: ALBUMIN 1.7 GM/DL (3.2-5.2); ALKALINE PHOSPHATASE 56 U/L (45-117); ALT/SGPT 17 U/L (12-78); ANION GAP 8 MEQ/L (8-16); AST/SGOT 26 U/L (15-37); BILIRUBIN,TOTAL 0.6 MG/DL (0.2-1.0); BLOOD UREA NITROGEN 16 MG/DL (7-18); CALCIUM LEVEL 7.9 MG/DL (8.8-10.2); CARBON DIOXIDE LEVEL 25 MEQ/L (21-32); CHLORIDE LEVEL 106 MEQ/L (98-107); CREATININE FOR GFR 0.61 MG/DL (0.70-1.30); GLOMERULAR FILTRATION RATE > 60.0 (>35); GLUCOSE, FASTING 93 MG/DL (83-110); POTASSIUM SERUM 3.4 MEQ/L (3.5-5.1); SODIUM LEVEL 139 MEQ/L (136-145); TOTAL PROTEIN 5.9 GM/DL (6.4-8.2)
[2017-04-15 05:57] LABS: ERYTHROCYTE SEDIMENTATION RATE 108 mm/hr (0-20)
[2017-04-15] MEDS ORDERED: GENTAMICIN 80 MG in APPROPRIATE DILUENT 1 EA IV SCH (06:00)
[2017-04-15] MEDS: SLF 3 ML SYR IV SCH ×3 (06:58→22:00)
[2017-04-15] MEDS ORDERED: POTASSIUM CHLORIDE 10% LIQ 20 MEQ/15 ML UDC PO ONE (07:15)
[2017-04-15 08:00] VITALS: BP 143/72
[2017-04-15] MEDS ORDERED: CARVedilol 3.125 MG TAB PO SCH (09:00)
[2017-04-15] MEDS ORDERED: LOSARTAN 25 MG TAB PO SCH (09:00)
[2017-04-15] MEDS ORDERED: VANCOMYCIN HCL 750 MG, VIAL MATE ADAPTER 1 EACH in D5W 250 ML IV SCH (10:00)
[2017-04-15] MEDS: LACTOBACILLUS ACIDOPHILUS CAP (BACID) PO SCH (10:03)
[2017-04-15] MEDS: FERROUS SULFATE 325MG TAB PO SCH (10:04)
[2017-04-15] MEDS: ASPIRIN 300 MG SUPP PR SCH (10:04)
[2017-04-15] MEDS: SERTRALINE HCL 25 MG TABLET PO SCH (10:04)
[2017-04-15] MEDS: CYANOCOBALAMIN 500 MCG TAB PO SCH (10:05)
[2017-04-15] MEDS: MULTIVITAMINS/MINERALS THERAP 1 TAB PO SCH (10:05)
[2017-04-15] MEDS: ACETAMINOPHEN 650 MG SUPP PR PRN (10:05)
[2017-04-15 12:27] VITALS: BP 155/68
[2017-04-15] MEDS: KCL 10MEQ IN 100ML SWI (KRUN) 10 MEQ in APPROPRIATE DILUENT 1 EA IV SCH ×4 (12:36→14:23)
--- NOTE | 2017-04-15 14:06 | PHACANCOPD ---
PHARMACY VANCOMYCIN DOSING Pt Demographics Demographics Patient Age:82 , Weight:65.200 , Gender: male Adjusted Body Weight Date: 04/13/17, Adjusted Body Weight: [NA] Kg Vancomycin Vancomycin indication: coverage for MRSA Vancomycin Target Ranges: 15-20 mcg/ml Vancomycin Load Y/N: Yes Load Dose Date Time Vancomycin Load Dose: 1000mg Date: 04/13 Time: 10:00, 16:00 Vancomycin Dose Date: 04/13/17. Current Vancomycin Dose: [1g IV q12h @22] Intermittent Dosing?: No Labs Micro Microbiology 04/15/17 Blood Culture, Received Pending 04/14/17 Blood Culture - Preliminary, Resulted No growth after 24 hours . All specim... 04/14/17 Blood Culture - Preliminary, Resulted No growth after 24 hours . All specim... 04/13/17 Blood Culture - Preliminary, Resulted 04/13/17 Blood Culture - Preliminary, Resulted 04/12/17 Blood Culture - Preliminary, Resulted 04/12/17 Blood Culture - Final, Complete Enterococcus Faecalis 04/12/17 Influenza Virus Type A Antigen - Final, Complete 04/12/17 Influenza Virus Type B Antigen - Final, Complete 04/13/17 Urine Culture - Final, Complete Staphylococcus Simulans Corynebacterium Species 04/12/17 Urine Culture, Received Pending Creatinine Clearance Date:04/13/17. Creatinine Clearance: [~60 ml/min]. Pending Labs Vanco trough scheduled 04/13 @09:00 Assessment and Plan Maintaining Current Dose?: No Reason for dose change: Other Pharmacist Note Pharmacist Note 04/15/17: Trough level today resulted within therapeutic range at 19.4mcg/ml for the treatment of endocarditis; however, I will decrease dosing to 750mg IV Q12H to preventatively avoid accumulation and supratherapeutic levels. A follow- up trough has been scheduled for 04/17/17 @0900 to ensure the patient remains therapeutic. We will continue to monitor and adjust dosing if needed. Date: 04/13/17. Pharmacist note: pt has been started on meropenem (previously on levaquin x2 doses) and vancomycin for sepsis secondary to complicated UTI - coverage for meningitis/listeria. Pt does not have a Hx of MRSA however was on vancomycin last in November 2016. I have resumed similar dosing with an increased loading dose (2g). I have a trough scheduled Friday morning barring any acute changes in renal function. Blood cultures from yesterday 06/24 was positive for G + cocci in pr ch; repeat blood cultures, MRSA and urine cultures are pending. We will continue to monitor and make adjustments as necessary. [facility] Apr 15, 2017 14:06
--- NOTE | 2017-04-15 14:08 | IPNPDOC ---
Text Note Date of Service The patient was seen on 04/15/17. NOTE Subjective: Patient is an 82 year old male with a PMHx of CAD, HTN, TIA, Hx of DVT , Spinal stenosis, Depression, BPH, and Chronic Saleh catheter with Hx of Multiple UTIs who presented to the ER with slurred speech and L UE weakness that started at 9 AM on 04/12. The patient was noted to have an acute stroke on MRI and also had splenic infarction on CT abdomen. Dr. Gomez discussed with Dr. Lama who has recommended anticoagulation with Lovenox, no surgical intervention was advised at the time. Patient was seen and examined at the bedside. Patient had minimal conversation this morning. Has not been able to tolerate adjusted feedings this morning. Will discuss with the family about goals of care. Objective: Vitals (See below) General: Lying in bed, no acute distress, AAOx3 HEENT: NC, AT CVS: RRR, +S1S2 Lungs: Fair air entry b/l, no appreciable wheezing / rales / rhonchi Abdomen: Soft, ND, No abdominal tenderness Extremities: - Edema, - Calf tenderness Assessment and plan: s/p Acute metabolic encephalopathy - possibly 2/2 acute CVA, possibly 2/2 sepsis - See below Sepsis - 2/2 Endocarditis - 2/2 Enterococcus Faecalis - likely 2/2 Urinary tract infection 2/2 chronic indwelling Saleh catheter - Presented with fever and Hx of multiple UTIs in the past - Blood culture 04/12 and 04/13: Gram Positive Cocci in chains; identified as Enterococcus Faecalis - CT chest 04/12: minimal atelectasis / fibrosis at lung bases, greatest in LLL , no consolidation / pneumothorax / effusion; calcification of LAD - ECHO with suspicion of vegetations - c/w Vancomycin (Day #2); Added Gentamicin; s/p Meropenem - ID consulted (Dr. Montes De Oca); appreciate their input - Discussed with Cardiology (Dr. Metcalf); at this point although PADMA can provide more information about the vegetations, family does not want to pursue surgical intervention and the patient is a poor surgical candidate; will continue with medical management with continued IV antibiotics Slurred speech / LUE weakness - likely 2/2 acute ischemic CVA - 2/2 septic emboli - Presented with slurred speech and LUE weakness - MRI Brain 04/12: Acute infarct in territorial distribution of the R posterior parietal lobe, some degree of generalized cerebral atrophy - MRA Brain 04/12: Negative - MRI Cervical Spine 04/13: Spondylosis. Multilevel degenerative disc disease - c/w ASA 325, c/w Simvastatin 40 - Speech and swallow evaluation; recommended modified diet - however is unable to tolerate - Neurology consulted (Dr. 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 Gomez and Dr. Lama; Recommended anticoagulation with Lovenox / Heparin; No surgical intervention was required at the time - Will discontinue Lovenox therapeutic, given that emboli are septic in nature - d/c Lovenox therapeutic; Start Prophylactic dose of Lovenox for DVT Neck pain - possibly 2/2 chronic cervical spine stenosis, possibly 2/2 acute bacterial meningitis - Family has indicated that they don't want any surgical intervention if required HTN - allow permissive hypertension, between 140-180 - Will restart HTN medications at lower dose; Losartan 25 and Carvedilol 3.125 BID Hx of Right LE DVT CAD s/p PCI - c/w ASA and Atorvastatin Chronic Saleh catheter with Hx of Multiple UTIs BPH - c/w Tamsulosin Depression - c/w Sertraline GERD - c/w Protonix IV DVT prophylaxis - on full anticoagulation with Lovenox Code Status: - DNR / DNI - Patient has noted that he does not want PEG tube as per JOO VS,Ruby, I+O VS, Ruby, I+O Laboratory Tests 04/15/17 05:23 Red Blood Count 3.10 L, Mean Corpuscular Volume 86.1, Mean Corpuscular Hemoglobin 29.0, Mean Corpuscular Hemoglobin Concent 33.7, Red Cell Distribution Width 15.9 H, Neutrophils (%) (Auto) 70.5 H, Lymphocytes (%) (Auto ) 14.8 L, Monocytes (%) (Auto) 11.8 H, Eosinophils (%) (Auto) 2.1, Basophils (% ) (Auto) 0.3, Neutrophils # (Auto) 8.6 H, Lymphocytes # (Auto) 1.8, Monocytes # (Auto) 1.4 H, Eosinophils # (Auto) 0.3, Basophils # (Auto) 0.0, Calcium Level 7.9 L, Aspartate Amino Transf (AST/SGOT) 26, Alanine Aminotransferase (ALT/SGPT ) 17, Alkaline Phosphatase 56, Total Bilirubin 0.6, Total Protein 5.9 L, Albumin 1.7 L Vital Signs Date Time Temp Pulse Resp B/P (MAP) Pulse Ox O2 Delivery O2 Flow Rate FiO2 04/15/17 12:27 97.8 69 18 155/68 (97) 94 Room Air 04/15/17 08:00 2.0 I&O- Last 24 Hours up to 6 AM 04/16/17 06:00 Intake Total 270 ml Output Total 225 ml Balance 45 ml MAIRA VALENTE MD Apr 15, 2017 14:08
[2017-04-15] MEDS: PANTOPRAZOLE 40MG INJ (PROTONIX) (C9113) IV SCH (14:23)
[2017-04-15] MEDS ORDERED: SCOPOLAMINE 1.5 MG TRANSDERMAL TD PRN (16:30)
[2017-04-15] MEDS ORDERED: LORazepam 2 MG/ML VIAL (J2060) IV PRN (16:30)
[2017-04-15] MEDS: MORPHINE 2 MG/ML 1ML SYRINGE IV PRN (19:25)
[2017-04-16 00:35] VITALS: BP 155/68
[2017-04-16] MEDS: MORPHINE 2 MG/ML 1ML SYRINGE IV PRN ×3 (00:35→15:00)
[2017-04-16] MEDS: SLF 3 ML SYR IV SCH ×2 (06:00→13:53)
[2017-04-16] MEDS ORDERED: ENOXAPARIN 40 MG/0.4 ML SYRINGE (J1650) SC SCH (09:00)
--- NOTE | 2017-04-16 11:33 | IPNPDOC ---
Subjective Date Seen The patient was seen on 04/15/17. Subjective Chief Complaint/HPI The patient is a 82-year-old male admitted with a reason for visit of Fever; Splenic Infarct;Tia;Uti. General: Reports: ROS Unobtainable (Pt seemed to be upset during exam and did not want to be examined, difficult to obtain answers from on ROS, pt seemed upset and altered mental status), Denies: Normal Appetite (pt is having significant difficulty swallowing, swallow eval one day ago suggested pureed, however pt also has difficulty eating even with altered diet) Gastrointestinal: Denies: Vomiting, Abdominal Pain, Diarrhea Objective Physical Examination General Exam: Positive: Alert, Negative: Cooperative, Moderate Distress Eye Exam: Positive: Conjunctiva & lids normal, EOMI, Negative: Sclera icteric ENT Exam: Positive: Atraumatic Neck Exam: Positive: Supple Chest Exam: Positive: Wheezing, Diminished, Negative: Rales, Rhonchi Heart Exam: Positive: Rate Normal, Normal S1, Normal S2, Murmurs, Negative: Rubs Abdomen Exam: Positive: Normal bowel sounds, Soft, Tenderness (diffuse), Negative: Hepatospenomegaly Extremity Exam: Negative: Clubbing, Cyanosis, Edema Psych Exam: Negative: Mental status NL Assessment /Plan Assessment Blood cultures on 04/12/17 two sets and 04/13/17 two sets were positive for gram positive cocci in chains and pairs. First set of blood cultures taken on were negative. Assessment: This is an 82 y/o male who was admitted for stroke and left sided weakness with slurred speech and evidence of splenic infarct on abdominal CT performed for complaint of abdominal pain. The pt demonstrated positive blood cultures for Streptococcus, potentially Enterococcus Faecalis as past urine cultures have shown this bacteria. His echo. 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 03/03 and 11/16/16 urine cultures were both positive for Enterococcus Faecalis. Mr Peña was accompanied by his daughters, one is his HCP. He was being treated for possible endocarditis with vancomycin and gentamicin with anticipation of a PICC line since first set of blood cultures were negative, he was going to have a PADMA at request of cardiology. 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 They do not wish for him to continue with prolonged IV antibiotics through a PICC line. They have expressed that the patients wishes were never to go into a [facility] and as such DATA ANALYST ETL DEVELOPER seems to be the best option. Antibiotics will be discontinued at this time in preparation for DATA ANALYST ETL DEVELOPER. Plan/VTE VTE Prophylaxis Ordered?: Yes VS, I&O, 24H, Fishbone Vital Signs/I&O Vital Signs Date Time Temp Pulse Resp B/P (MAP) Pulse Ox O2 Delivery O2 Flow Rate FiO2 04/16/17 00:35 97.8 69 18 155/68 94 Room Air 2.0 I&O- Last 24 Hours up to 6 AM 04/17/17 06:00 Intake Total 0 ml Balance 0 ml Laboratory Data Microbiology Microbiology 04/15/17 Blood Culture - Preliminary, Resulted No growth after 24 hours . All specim... 04/14/17 Blood Culture - Preliminary, Resulted No growth after 24 hours . All specim... 04/14/17 Blood Culture - Preliminary, Resulted No Growth after 48 hours. All Specime... 04/13/17 Blood Culture - Final, Complete Enterococcus Faecalis 04/13/17 Blood Culture - Final, Complete Enterococcus Faecalis 04/12/17 Blood Culture - Preliminary, Resulted Enterococcus Faecalis 04/12/17 Blood Culture - Final, Complete Enterococcus Faecalis 04/12/17 Influenza Virus Type A Antigen - Final, Complete 04/12/17 Influenza Virus Type B Antigen - Final, Complete 04/13/17 Urine Culture - Final, Complete Staphylococcus Simulans Corynebacterium Species 04/12/17 Urine Culture - Final, Complete Staphylococcus Epidermidis Enterococcus Faecalis GME ATTESTATION GME ATTESTATION My preceptor for this patient encounter was physically present in the building during the encounter and was fully available. As needed, all aspects of the patient interview, examination, medical decision making process, and medical care plan development were reviewed and approved by the preceptor. Preceptor is aware and concurs with the plan as stated in the body of this note and will attest to such by his/her cosignature. FANNY LINARES DO Apr 16, 2017 11:34
[2017-04-16] MEDS ORDERED: LORA0.5T11 PO (11:56)
[2017-04-16] MEDS ORDERED: MORP20SO3 PO ×2 (11:56→12:44)
[2017-04-16] MEDS ORDERED: ACET65SU PR (11:56)
[2017-04-16] MEDS ORDERED: HYOS125TA PO (11:56)
--- NOTE | 2017-04-16 20:37 | DSES ---
DATE OF ADMISSION: 04/12/2017 DATE OF DISCHARGE: 04/16/2017 ATTENDING PHYSICIAN: Karon Mcdowell MD PRIMARY CARE PHYSICIAN: Abhishek Peraza MD REFERRING PHYSICIAN: None. CONSULTING PHYSICIANS: Ijeoma Montes De Oca MD, Pineda Wynn MD, Arvin Metcalf MD FINAL DIAGNOSIS: Endocarditis with septic emboli. PROCEDURES: None. HISTORY OF PRESENT ILLNESS: Patient is an 82-year-old male with a past medical history of coronary artery disease, hypertension, transient ischemic attack (TIA), history of deep venous thrombosis (DVT), spinal stenosis, depression, BPH and chronic Saleh catheter with history of multiple urinary tract infections, who presented to the emergency room (ER) with slurred speech and left upper extremity weakness that started around 9 a.m. on 04/12/2017. The patient was noted to have an acute stroke on MRI and had a splenic infarction noted on CT abdomen. Dr. Gomez discussed the case with Dr. Lama who recommended anticoagulation with Lovenox for his splenic infarction and advised no surgical intervention at that time. HOSPITAL COURSE: 1. Acute metabolic encephalopathy, possibly secondary to acute CVA, possibly secondary to sepsis secondary to endocarditis. 2. Sepsis, secondary to endocarditis, secondary to Enterococcus faecalis, likely secondary to urinary tract infection, secondary to chronic indwelling Saleh catheter. Presented with fevers and history of multiple urinary tract infections in the past. Blood cultures on 04/12/2017 and 04/13/2017 were positive for gram-positive cocci in chains which was identified as Enterococcus faecalis. CT chest on 04/12/2017, revealed minimal atelectasis, fibrosis of lung bases, greatest in the left lower lobe, no consolidation, pneumothorax or effusion was noted. There was calcification of the left anterior descending artery. Echocardiogram via transthoracic was obtained. It revealed suspicion for vegetations. Patient was put on vancomycin and meropenem throughout the hospital course and was then transitioned to only vancomycin and gentamicin as per our building performance consultant for infectious disease, Dr. Montes De Oca. Case was discussed with Dr. Metcalf in cardiology and although at this point transesophageal echo would provide better information about vegetations, family did not want to pursue this surgical intervention in the event that larger vegetations are found. Patient is also currently a poor surgical candidate and at this point we are going to pursue medical management only. However, upon discussion of the patient's clinical course, patient was decided to be made comfort measures only because of his poor mental status and inability to take any oral intake in. 3. Slurred speech/left upper extremity weakness, likely secondary to acute ischemic CVA, secondary to septic emboli. Presented with slurred speech and left upper extremity weakness. MRI of brain on 04/12/2017, was positive for acute infarct and territorial distribution of the right posterior parietal lobe. Some degree of generalized cerebral atrophy was noted. MRA of brain 04/12/2017, was negative. MRA of cervical spine on 04/13/2017, revealed spondylosis, multilevel degenerative disc disease. He was continued with aspirin 325 and simvastatin 40. Speech and swallow evaluation was done and recommended modified diet, however patient was unable to tolerate this. Neurology was consulted, Dr. Wynn, we appreciated their input. Again, discussion with the family regarding the patient's overall clinical status, worsening mental status, as well as inability to swallow and the patient's Medical Orders for Life-Sustaining Treatment (MOLST) form, which had indicated that he did not want any percutaneous endoscopic gastrostomy (PEG) tube to be placed. A decision was made with his healthcare proxy that patient should be made comfort measures only at this point. All family members were present at the bedside when the decision was made. The patient has a new MOLST form that reflected comfort measures only status and arrangements were made for the patient to be taken home where he can be continued on comfort measures only. 4. Splenic infarction, possibly secondary to septic emboli. Patient was put on therapeutic doses of Lovenox, however this has been discontinued because it was secondary to septic emboli and he will not be going home with any Lovenox. 5. Neck pain, possibly secondary to chronic cervical spinal stenosis, less likely secondary to acute bacterial meningitis. Patient will be continued with pain control. 6. Hypertension. 7. History of right lower extremity deep venous thrombosis (DVT). 8. Coronary artery disease status post PTCA. 9. Chronic Saleh catheter with multiple urinary tract infections. 10. BPH. 11. Depression. 12. Gastroesophageal reflux disease (GERD). 13. DVT prophylaxis. CODE STATUS: DO NOT RESUSCITATE/DO NOT INTUBATE and patient's MOLST form has been updated to reflect comfort measures only. DISCHARGE MEDICATIONS: Patient discharged home with the following medication list: - acetaminophen 650 mg per rectum every 4 hours as needed for pain or fever - hyoscyamine 0.125 mg by mouth every 4 hours as needed for terminal secretions - lorazepam 0.5 mg by mouth every 4 hours as needed for anxiety and agitation - morphine 0.25 to 1 mL by mouth every 2 hours as needed for pain or dyspnea All other medications were stopped. DISCHARGE INSTRUCTIONS: Patient has been advised to followup with primary care provider if pain remains uncontrolled. Patient has been advised to remain compliant with treatment plan and medications and to return to the emergency room (ER) if his pain remains uncontrolled.
== END 2017-04-16 15:10 | disposition hospice, home (50) | DRG 698 ==
LOC: EDBD 12:02 → M ED 12:02 → M ED INP 18:38 → M PCU 04-13 00:04 → M MSPAV 04-16 00:40
PROVIDERS: ADMIT Internal Medicine; ATTEND Internal Medicine
DX: T83.518A Infection and inflammatory reaction due to other urinary catheter, initial encounter (principal); G93.41 Metabolic encephalopathy; A41.9 Sepsis, unspecified organism; I33.0 Acute and subacute infective endocarditis; I63.511 Cerebral infarction due to unspecified occlusion or stenosis of right middle cerebral artery; I76 Septic arterial embolism; N39.0 Urinary tract infection, site not specified; S32.9XXA Fracture of unspecified parts of lumbosacral spine and pelvis, initial encounter for closed fracture; Z66 Do not resuscitate; Z51.5 Encounter for palliative care; D50.0 Iron deficiency anemia secondary to blood loss (chronic); I25.10 Atherosclerotic heart disease of native coronary artery without angina pectoris; M48.02 Spinal stenosis, cervical region; N40.0 Benign prostatic hyperplasia without lower urinary tract symptoms; I10 Essential (primary) hypertension; D73.5 Infarction of spleen; F32.9 Major depressive disorder, single episode, unspecified; Z87.440 Personal history of urinary (tract) infections; Z96.0 Presence of urogenital implants; Z98.41 Cataract extraction status, right eye; Z98.42 Cataract extraction status, left eye; Z87.891 Personal history of nicotine dependence; Z95.9 Presence of cardiac and vascular implant and graft, unspecified; Z86.73 Personal history of transient ischemic attack (TIA), and cerebral infarction without residual deficits; Z86.718 Personal history of other venous thrombosis and embolism; Z79.82 Long term (current) use of aspirin; Z79.899 Other long term (current) drug therapy; Z88.0 Allergy status to penicillin; X58.XXXA Exposure to other specified factors, initial encounter; Y92.9 Unspecified place or not applicable; Y93.9 Activity, unspecified; Y99.9 Unspecified external cause status; Y82.9 Unspecified medical devices associated with adverse incidents